=== PATIENT | male | born 1955 | race Caucasian/White ===

== ENCOUNTER → 2016-09-08 | Outpatient (CLI) | payer OTHER ==
[~2016-09-08] MED LIST: AMPI500C9 PO; ASPI81TA28 PO; ATOR-24 PO; BUPR-79 PO; CHOL1000 PO; FINA5TAB PO; FRS/40 PO; SULF-183 PO; TAMS0.4C38 PO
[2016-09-13 20:53] LABS: 18KDIGG BAND REACTIVE (NONREACTIVE); 23KDIGG BAND NONREACTIVE (NONREACTIVE); 23KDIGM BAND NONREACTIVE (NONREACTIVE); 28KDIGG BAND NONREACTIVE (NONREACTIVE); 30KDIGG BAND NONREACTIVE (NONREACTIVE); 39KDIGG BAND REACTIVE (NONREACTIVE); 39KDIGM BAND NONREACTIVE (NONREACTIVE); 41KDIGG BAND NONREACTIVE (NONREACTIVE); 41KDIGM BAND REACTIVE (NONREACTIVE); 45KDIGG BAND REACTIVE (NONREACTIVE); 58KDIGG BAND NONREACTIVE (NONREACTIVE); 66KDIGG BAND REACTIVE (NONREACTIVE); 93KDIGG BAND NONREACTIVE (NONREACTIVE)
[2016-09-14 17:44] LABS: ANTI-CENTROMERE AB <1.0 NEG AI (<1.0 NEG); ANTI-SS-A <1.0 NEG AI (<1.0 NEG); ANTI-SS-B <1.0 NEG AI (<1.0 NEG); DNA ds CRITHIDIA NEGATIVE (NEGATIVE); MICROSOMAL AB <1 IU/ML (<9); Sm Antibody <1.0 NEG AI (<1.0 NEG)
== END | disposition home or self-care (01) ==
LOC: C.LAB1850 14:09
PROVIDERS: ATTEND Internal Medicine Infectious Disease
DX: M35.3 Polymyalgia rheumatica (principal)

== ENCOUNTER → 2016-11-20 | Outpatient (CLI) | payer OTHER ==
[2016-11-20 16:42] LABS: HEMATOCRIT 45.5 % (42-52); MEAN CELL VOLUME 83.9 fL (80-100); MEAN CORPUSCULAR HEMOGLOBIN 26.9 pg (25-34); MEAN CORPUSCULAR HGB CONC 32.1 g/dl (32-36); MEAN PLATELET VOLUME 9.8 fL (7.4-10.4); PLATELET COUNT 200 K/uL (130-400); RED BLOOD COUNT 5.42 M/uL (4.7-6.1)
[2016-11-20 16:45] LABS: URINE APPEARANCE TURBID (CLEAR); URINE BILIRUBIN NEG (NEG); URINE COLOR YELLOW; URINE EPITHELIAL CELL AUTO 0-5 /lpf (0-5); URINE NITRITE NEG (NEG); URINE PH 5.5 (4.5-7.5); URINE SPECIFIC GRAVITY 1.013 (1.000-1.030); UROBILINOGEN NEG (NEG)
[2016-11-20 16:46] LABS: MANUAL MICROSCOPIC REQUIRED? NO; REVIEW REQ? YES
[2016-11-20 16:55] LABS: ALT/SGPT 55 U/L (12-78); AST/SGOT 22 U/L (15-37); BLOOD UREA NITROGEN 21 mg/dl (7-18); CALCIUM 8.7 mg/dl (8.5-10.1); CARBON DIOXIDE 31 mmol/L (21-32); CHLORIDE 107 mmol/L (98-107); GLUCOSE 90 mg/dl (70-99); POTASSIUM 4.1 mmol/L (3.5-5.1); SODIUM 143 mmol/L (136-145)
[2016-11-20 16:58] LABS: ALB/GLOB RATIO 0.9 (0.9-2); ALKALINE PHOSPHATASE 99 U/L (45-117); CHOLESTEROL 135 mg/dl (0-200); CHOLESTEROL/HDL RATIO 3.3; HDL CHOLESTEROL 41 mg/dl; LDL CHOLESTEROL CALCULATED 70 mg/dl; TRIGLYCERIDES 122 mg/dl (0-150); VERY LOW DENSITY LIPOPROT CALC 24 mg/dl
[2016-11-20 17:13] LABS: URINE PROTIEN/CREAT RATIO 0.3 (0-0.2); URINE TOTAL PROTEIN 21.2 mg/dl (0-11.9)
[2016-11-23 10:45] LABS: FREE KAPPA 43.3 MG/L (3.3-19.4); FREE KAPPA/LAMBDA RATIO 1.67 (0.26-1.65); FREE LAMBDA 25.9 MG/L (5.7-26.3)
== END | disposition home or self-care (01) ==
LOC: C.LABPBG 14:59
PROVIDERS: ATTEND Internal Medicine Nephrology
DX: E55.9 Vitamin D deficiency, unspecified (principal); N18.3 Chronic kidney disease, stage 3 (moderate); N40.0 Benign prostatic hyperplasia without lower urinary tract symptoms; N31.9 Neuromuscular dysfunction of bladder, unspecified; E78.00 Pure hypercholesterolemia, unspecified

== ENCOUNTER 2016-12-22 12:19 | Day surgery (SDC) | payer OTHER ==
[2016-12-09 11:41] VITALS: BMI 44.0
--- NOTE | 2016-12-09 12:17 | PAT Medication Instructions ---
Service Date December 09, 2016. Current Home Medication List Aspirin (Aspirin Ec), 81 MG PO QAM Atorvastatin (Lipitor), 40 MG PO QAM Bupropion (Wellbutrin Sr), 150 MG PO BID Cholecalciferol (Vitamin D3), 5,000 UNITS PO QAM Finasteride (Proscar), 5 MG PO BID Furosemide (Lasix), 40 MG PO QAM Tamsulosin Hcl (Flomax), 0.4 MG PO HS Medication Instructions For Your Scheduled Surgery - Hold the following medications 5 days prior to surgery per surgeon instructions: Aspirin (Aspirin Ec), 81 MG PO QAM - Hold the following medications the morning of surgery: Furosemide (Lasix), 40 MG PO QAM Cholecalciferol (Vitamin D3), 5,000 UNITS PO QAM - Take the following medications the morning of surgery with a sip of water: Finasteride (Proscar), 5 MG PO BID Atorvastatin (Lipitor), 40 MG PO QAM Bupropion (Wellbutrin Sr), 150 MG PO BID - Take the following medications as scheduled the night before surgery: Tamsulosin Hcl (Flomax), 0.4 MG PO HS Finasteride (Proscar), 5 MG PO BID Bupropion (Wellbutrin Sr), 150 MG PO BID If you have any questions please call us at [phone] or [phone] ( [place]) or [phone]
[2016-12-09 12:40] LABS: BASO % 0.5 %; BASO ABS # 0.05 K/uL (0-0.2); COMPLETE YES; EOS % 4.2 %; HEMATOCRIT 45.6 % (42-52); IG% 0.6 %; LYMPH % 20.6 %; LYMPH ABS # 2.06 K/uL (1.2-3.4); MEAN CELL VOLUME 82.6 fL (80-100); MEAN CORPUSCULAR HEMOGLOBIN 26.6 pg (25-34); MEAN CORPUSCULAR HGB CONC 32.2 g/dl (32-36); MEAN PLATELET VOLUME 9.3 fL (7.4-10.4); MONO % 9.2 %; NEUT % 64.9 %; PLATELET COUNT 207 K/uL (130-400); RED BLOOD COUNT 5.52 M/uL (4.7-6.1); WHITE BLOOD COUNT 10.01 K/uL (4.8-10.8)
[2016-12-09 12:43] LABS: URINE APPEARANCE TURBID (CLEAR); URINE BILIRUBIN NEG (NEG); URINE COLOR YELLOW; URINE EPITHELIAL CELL AUTO >30 /lpf (0-5); URINE NITRITE POS (NEG); URINE SPECIFIC GRAVITY 1.019 (1.000-1.030); UROBILINOGEN NEG (NEG)
[2016-12-09 12:45] LABS: MANUAL MICROSCOPIC REQUIRED? NO; REVIEW REQ? YES
--- NOTE | 2016-12-09 12:45 | DIAGNOSTIC IMAGING REPORT ---
CHEST PREADMISSION(PA/LAT) CLINICAL HISTORY: Preoperative chest COMPARISON STUDY: No previous studies for comparison. FINDINGS: The heart is borderline enlarged. There is no failure. There is no focal pulmonary consolidation. Indistinctness of the left heart border is felt to be secondary to a prominent fat pad. There are no pleural effusions.[ IMPRESSION: No active disease in the chest. Electronically signed by: Vishnu Maza M.D. 12/09/2016 12:44 PM Dictated Date/Time: 12/09/2016 12:43 PM
[2016-12-09 13:19] LABS: BUN/CREATININE RATIO 14.1 (10-20); CALCIUM 9.5 mg/dl (8.5-10.1); CREATININE 1.5 mg/dl (0.60-1.40); POTASSIUM 4.3 mmol/L (3.5-5.1)
[~2016-12-22] VITALS: Ht 182.9 cm; Wt 146.8 kg
[~2016-12-22 12:19] MED LIST changes: -AMPI500C9 PO; +CIPROFLOXACIN / D5W 400 MG IV SCH; +LACTATED RINGER'S 1000ML 1,000 ML IV SCH; -SULF-183 PO
[2016-12-22 12:43] VITALS: BP 137/66; PULSE 86; TEMP 36.5; O2SAT 95; Ht 182.9 cm; Wt 146.8 kg
[2016-12-22] MEDS ORDERED: PHENYLEPHRINE 100MCG/ML 5ML SYR IV PRN (12:45)
[2016-12-22] MEDS ORDERED: HYDROmorphone INJ 2 MG/ML SYR/VIAL IV PRN (12:45)
[2016-12-22] MEDS ORDERED: MEPERIDINE HCL 25 MG/ML CARP IV PRN (12:45)
[2016-12-22] MEDS ORDERED: FLUMAZENIL 0.1 MG/1 ML 10 ML VIAL IV PRN (12:45)
[2016-12-22] MEDS ORDERED: ATROPINE SULFATE 0.1 MG/ML 5ML SYR IV PRN (12:45)
[2016-12-22] MEDS ORDERED: FENTANYL CITRATE INJ 50 MCG/1 ML 2 ML VIAL IV PRN (12:45)
[2016-12-22] MEDS ORDERED: LABETALOL HCL IV 5 MG/ML 20ML IV PRN (12:45)
[2016-12-22] MEDS ORDERED: ONDANSETRON INJ 2 MG/ML 2 ML VIAL IV PRN (12:45)
[2016-12-22] MEDS ORDERED: NALOXONE HCL 0.4 MG/1 ML VIAL/CARP IV PRN (12:45)
[2016-12-22] MEDS ORDERED: EpHEDrine SULFATE INJ 50 MG/ML AMP IV PRN (12:45)
[2016-12-22] MEDS ORDERED: DEXAMETHASONE SOD INJ 4 MG/ML VIAL ONE (12:54)
[2016-12-22] MEDS ORDERED: PROPOFOL IV EMULSION 10 MG/ML 20 ML VIAL IV ONE ×2 (12:55→13:38)
[2016-12-22] MEDS ORDERED: ONDANSETRON INJ 2 MG/ML 2 ML VIAL ONE (12:55)
[2016-12-22] MEDS ORDERED: LIDOCAINE HCL 2% 2 ML VIAL (20MG/ML) ONE (12:55)
[2016-12-22] MEDS ORDERED: FENTANYL CITRATE INJ 50 MCG/1 ML 2 ML VIAL ONE ×2 (12:55→13:36)
--- NOTE | 2016-12-22 12:58 | History & Physical Bridge Note ---
H&P Re-Evaluation Bridge Note: I have examined the patient, reviewed the History & Physical and in the interval since the performance of the History & Physical I have noted the following changes of clinical significance: No changes noted
[2016-12-22] MEDS ORDERED: AMPI500C9 PO ×2 (13:00→14:00)
[2016-12-22] MEDS ORDERED: SULF-183 PO ×2 (13:02→14:00)
[2016-12-22] MEDS ORDERED: EpHEDrine SULFATE 50MG/5ML SYR ONE (13:38)
[2016-12-22] MEDS ORDERED: SODIUM CHLORIDE 0.9% 1000ML 1,000 ML IV SCH (13:58)
[2016-12-22] MEDS ORDERED: ACETAMINOPHEN 325 MG TAB PO PRN (14:00)
[2016-12-22] MEDS ORDERED: HYDROCODONE/ACETAMOPHEN 5/325MG TAB PO PRN ×2 (14:00)
--- NOTE | 2016-12-22 14:03 | Discharge Instructions ---
Discharge Instructions Date of Service December 22, 2016. Admission Reason for Admission: Urinary Retention, Benign Prostatic Hypertrophy Discharge Discharge Diagnosis / Problem: urinary retention; BPH Discharge Goals Goal(s): Decrease discomfort, Improve function, Increase independence, Improve disease control, Prevent Disease Progression Activity Recommendations Activity Limitations: resume your previous activity Lifting Limitations: none Exercise/Sports Limitations: none May Resume Sexual Activity: when tolerated Shower/Bathe: no limitations Driving or Machine Use: resume 1 day after discharge . Instructions / Follow-Up Instructions / Follow-Up Please come to Dr. Willis's office on to have your catheter removed. I have provided 2 new prescriptions for you (these are the same medications/ antibiotics you were on prior to surgery). If you have enough pills left at home , you do not need to fill these new prescriptions - but I would like to continue these medications for 5 days from today (until Wednesday) Discharge Diet Recommended Diet: Regular Diet Procedures Procedures Performed: button transurethral resection prostate Pending Studies Studies pending at discharge: no Laboratory Results Lipid Panel Test 11/20/16 15:06 Range/Units Triglycerides Level 122 0-150 mg/dl Cholesterol Level 135 0-200 mg/dl HDL Cholesterol 41 mg/dl Cholesterol/HDL Ratio 3.3 LDL Cholesterol, Calculated 70 mg/dl Medical Emergencies . Who to Call and When: Medical Emergencies: If at any time you feel your situation is an emergency, please call 911 immediately. . Non-Emergent Contact Non-Emergency issues call your: Urologist Call Non-Emergent contact if: you have a fever, temperature is above 101.5, your pain is not controlled, your pain is worsening, your pain is unusual for you . . "Provider Documentation" section prepared by Hay Fatima. . VTE Core Measure Inpt VTE Proph given/why not?: Treatment not indicated
--- NOTE | 2016-12-22 14:04 | [facility] Post Operative Brief Note ---
Immediate Operative Summary Operative Date December 22, 2016. Pre-Operative Diagnosis Benign prostatic hyperplasia Post-Operative Diagnosis same Procedure(s) Performed button transurethral resection prostate Surgeon Dr. Alejandro Willis Asw/Asuw [employer] Surgeon(s) none Estimated Blood Loss 0 ml Findings Moderately enlarged prostate with a high bladder neck. Healthy appearing bladder. Prostatic fossa was widely patent at the conclusion of the case. Specimens none per surgeon Drains 22F maynard Anesthesia gen Complication(s) None Disposition Recovery Room / PACU (stable)
--- NOTE | 2016-12-22 14:30 | OPERATIVE REPORT ---
DATE OF OPERATION: 12/22/2016 PREOPERATIVE DIAGNOSES: Urinary retention, benign prostatic hypertrophy. POSTOPERATIVE DIAGNOSES: Urinary retention, benign prostatic hypertrophy. PROCEDURE PERFORMED: Cystoscopy, transurethral resection of prostate. SURGEON: Dr. Willis. ANESTHESIA: General. ESTIMATED BLOOD LOSS: 0. URINE OUTPUT: Not recorded. SPECIMENS: There were no specimens. DRAINS: 22 [place] Day catheter. DESCRIPTION OF THE PROCEDURE: Tae Krishnan was identified in the preoperative holding area. Appropriate informed consents were reviewed and completed and the patient was transported to the operating suite. Of note, prior to arrival in the hospital he had been maintained on oral antibiotics in the form of Bactrim and ampicillin secondary to his preoperative urine cultures. He received an additional dose of ciprofloxacin upon arrival at the hospital. Following induction of general anesthesia, he was placed in dorsal lithotomy position and sterilely prepped and draped in standard fashion. I began the case by passing a 24 [place]uneian resectoscope with 30 degree lens and visual obturator. Inspection revealed no stricture disease. Prostate was noted to have lateral lobe hypertrophy as well as quite high bladder neck. Overall it was not a massively enlarged prostate. Inspection of the bladder revealed no evidence of mucosal abnormalities. Ureteral orifices were in orthotopic position and easily identified. Following my inspection of the bladder, I exchanged the visual obturator for resecting element and I elected to use a button electrode. I then proceeded to make incisions in the bladder neck in line between the ureteral orifices respectively and the verumontanum. I then resected the segment of tissue between these 2 incisions until the bladder neck was flattened. I then proceeded to resect the right lateral lobe followed by the left lateral lobe and ultimately the apical tissue. At the conclusion of the case, the prostatic fossa was widely patent. There have been no encroachment upon the ureteral orifices and there was excellent hemostasis. I left the bladder full at that time and withdrew my equipment. We placed a new 22-Bruneian Day catheter without difficulty and had a return of clear irrigant immediately. The patient was subsequently reversed from anesthesia and taken to the PACU in stable condition. I attest to the content of the Intraoperative Record and any orders documented therein. Any exceptio ns are noted below.
--- NOTE | 2016-12-22 14:35 | Anesthesiology Progress Note ---
Anesthesia Post Op Note Date & Time December 22, 2016 at 14:35 Vital Signs Pain Intensity: 0 Vital Signs Past 12 Hours Date Time Temp Pulse Resp B/P Pulse Ox O2 Delivery O2 Flow Rate FiO2 12/22/16 14:30 79 16 130/85 92 Room Air 12/22/16 14:20 85 16 154/86 96 Mask 10 12/22/16 14:10 85 16 135/90 96 Mask 10 12/22/16 14:00 36.3 88 16 133/85 94 Mask 10 12/22/16 12:43 36.5 86 20 137/66 95 Room Air Notes Mental Status: alert / awake / arousable, participated in evaluation Pt Amnestic to Procedure: Yes Nausea / Vomiting: adequately controlled Pain: adequately controlled Airway Patency, RR, SpO2: stable & adequate BP & HR: stable & adequate Hydration State: stable & adequate Anesthetic Complications: no major complications apparent
[2016-12-22 14:50] VITALS: BP 140/95; PULSE 77; TEMP 36.7; O2SAT 92
[2016-12-22 15:30] VITALS: BP 147/85; PULSE 79; TEMP 36.7; O2SAT 94
[2016-12-22 16:00] VITALS: BP 153/92; PULSE 88; TEMP 36.5; O2SAT 96
== END 2016-12-22 16:05 | disposition home or self-care (01) ==
LOC: C.ACU 12:19
PROVIDERS: ATTEND Urology
DX: N40.1 Benign prostatic hyperplasia with lower urinary tract symptoms (principal); R33.8 Other retention of urine; N52.9 Male erectile dysfunction, unspecified; N31.9 Neuromuscular dysfunction of bladder, unspecified; E78.00 Pure hypercholesterolemia, unspecified; N18.3 Chronic kidney disease, stage 3 (moderate); M36.3 Arthropathy in other blood disorders; E55.9 Vitamin D deficiency, unspecified; Z87.891 Personal history of nicotine dependence; Z79.899 Other long term (current) drug therapy

== ENCOUNTER → 2017-01-12 | Outpatient (CLI) | payer OTHER ==
[~2017-01-12] MED LIST changes: +AMPI500C9 PO; -CIPROFLOXACIN / D5W 400 MG IV SCH; -FINA5TAB PO; -LACTATED RINGER'S 1000ML 1,000 ML IV SCH; +SULF-183 PO
--- NOTE | 2017-01-12 16:14 | DIAGNOSTIC IMAGING REPORT ---
LEFT KNEE 3 VIEWS CLINICAL HISTORY: Left knee pain COMPARISON: None. DISCUSSION: No acute fractures are visualized. There are mild osteoarthritic changes. There is mild narrowing medial joint compartment. There is a small dorsal patellar spur. There are no erosive or destructive changes. IMPRESSION: Mild osteoarthritic change. No acute fractures. Electronically signed by: Vishnu Maza M.D. 01/12/2017 4:13 PM Dictated Date/Time: 01/12/2017 4:12 PM
--- NOTE | 2017-01-12 16:14 | DIAGNOSTIC IMAGING REPORT ---
L-SPINE MIN 4 VIEWS ROUTINE CLINICAL HISTORY: ] Knee pain COMPARISON STUDY: No previous studies for comparison. FINDINGS: No acute fractures or subluxations are visualized. There are moderate multilevel degenerative changes most pronounced at the L5-S1 level. There is irregularity anterior superior L5 endplate and is felt to be chronic. IMPRESSION: Moderate degenerative change. No acute fractures or subluxations identified. Electronically signed by: Vishnu Maza M.D. 01/12/2017 4:12 PM Dictated Date/Time: 01/12/2017 4:11 PM
--- NOTE | 2017-01-12 16:19 | DIAGNOSTIC IMAGING REPORT ---
RIGHT KNEE 3 VIEWS CLINICAL HISTORY: Right knee pain COMPARISON: None. DISCUSSION: No fractures or dislocations are visualized. There is a tiny dorsal patellar spur. There are no erosive or destructive changes. IMPRESSION: Minimal degenerative change. No acute fractures identified. No destructive lesions are visualized. Electronically signed by: Vishnu Maza M.D. 01/12/2017 4:17 PM Dictated Date/Time: 01/12/2017 4:17 PM
--- NOTE | 2017-01-12 16:25 | DIAGNOSTIC IMAGING REPORT ---
LEFT HAND MIN 3 VIEWS ROUTINE CLINICAL HISTORY: Left hand pain. COMPARISON: None FINDINGS: Alignment of left hand is anatomic. There is no fracture or osseous lesion within the left hand. A 4 mm lucency with sclerotic margin within the ulnar styloid is noted. There is minimal joint space narrowing and osteophytosis of several articulations of the left hand. IMPRESSION: 1. No acute fracture. 2. 4 mm lucency with sclerotic margin within the ulnar styloid which could reflect a cyst or erosion. 3. Minimal joint space narrowing and osteophytosis of several articulations of the left hand which favors osteoarthritis. Electronically signed by: Mario Wen M.D. 01/12/2017 4:23 PM Dictated Date/Time: 01/12/2017 4:21 PM
--- NOTE | 2017-01-12 16:25 | DIAGNOSTIC IMAGING REPORT ---
RIGHT HAND MIN 3 VIEWS ROUTINE CLINICAL HISTORY: Right hand pain COMPARISON: None. DISCUSSION: No acute fractures are visualized. There are mild osteoarthritic changes the level of the interphalangeal joint of the index finger. There are no subluxations. There is no erosive disease. There is an equivocal subchondral cyst within the distal ulna. There is a small metallic foreign body within the webspace between the first and second digits. IMPRESSION: 1. No acute fractures 2. Degenerative changes the level distal to phalangeal joint of the index finger 3. Equivocal subchondral cyst within the distal ulna 4. Small metallic foreign body within the webspace between the first and second digits. Electronically signed by: Vishnu Maza M.D. 01/12/2017 4:23 PM Dictated Date/Time: 01/12/2017 4:22 PM
[2017-01-12 17:44] LABS: C-REACTIVE PROTEIN 1.05 mg/dl (0-0.29); RHEUMATOID FACTOR < 10.0 U/mL (0-15); TOTAL IRON BINDING CAPACITY 325 mcg/dl (250-450)
[2017-01-20 04:46] LABS: ANTI-CENTROMERE AB <1.0 NEG AI (<1.0 NEG); ANTI-SS-A <1.0 NEG AI (<1.0 NEG); ANTI-SS-B <1.0 NEG AI (<1.0 NEG); DNA ds CRITHIDIA NEGATIVE (NEGATIVE); HLA-B27** TC 528X NEGATIVE (NEGATIVE); MYELOPEROXIDASE AB <1.0 AI (<1.0); Sm Antibody <1.0 NEG AI (<1.0 NEG)
== END | disposition home or self-care (01) ==
LOC: C.RAD1850 15:31
PROVIDERS: ATTEND Internal Medicine Rheumatology
DX: M54.5 Low back pain (principal); M25.561 Pain in right knee; R93.7 Abnormal findings on diagnostic imaging of other parts of musculoskeletal system; M25.742 Osteophyte, left hand; M47.816 Spondylosis without myelopathy or radiculopathy, lumbar region; M47.817 Spondylosis without myelopathy or radiculopathy, lumbosacral region; M85.431 Solitary bone cyst, right ulna and radius; M19.041 Primary osteoarthritis, right hand; S60.551A Superficial foreign body of right hand, initial encounter; X58.XXXA Exposure to other specified factors, initial encounter

== ENCOUNTER → 2017-03-16 | Outpatient (CLI) | payer OTHER ==
--- NOTE | 2017-03-16 14:12 | DIAGNOSTIC IMAGING REPORT ---
LUMBAR SPINE MRI HISTORY: Chronic low back pain. LUMBAR RADICULOPATHY TECHNIQUE: Multiplanar multisequence MRI of the lumbar spine was performed without the use of contrast. COMPARISON: Lumbar spine 01/12/2017. FINDINGS: For the purpose of the report the L5-S1 disc space will be located on axial image 27 of 30. No fracture. No subluxation. Mild disc space narrowing at L1-L2, L4-L5 and L5-S1. Prevertebral edema at the L5-S1 level and extending to the presacral space. There is endplate signal abnormality anteriorly and to the right side at the L5-S1 levels. There is anterior herniation of the L5-S1 disc space and a small amount of increased T2 signal within the right anterior disc. No epidural fluid collections. No evidence for paraspinal abscess. The conus terminates at L1. A 1.3 cm nonspecific T2 hyperintense, T1 hypointense lesion within the right sacrum at the S2 level. Subcutaneous edema within the lumbar region. Atrophic left kidney. Moderate facet degenerative changes within the mid to lower lumbar spine. L1-L2: Tiny broad-based posterior disc bulge. No significant central canal or neural foraminal narrowing. L2-L3: No significant central canal or neural foraminal narrowing. L3-L4: No significant central canal or neural foraminal narrowing. L4-L5: No significant central canal or neural foraminal narrowing. L5-S1: Tiny right paracentral focal disc protrusion without significant central canal narrowing. There is mild right neural foraminal narrowing due to the disc protrusion and mild facet hypertrophy. IMPRESSION: 1. Abnormal appearance to the L5-S1 disc and endplates anteriorly as described above. There is associated prevertebral edema at this location and extending into the presacral space. The appearance favors anterior disc herniation/degenerative change. However, an early discitis/osteomyelitis could also have a similar appearance in the appropriate clinical setting. Clinical recommended. In addition, short-term lumbar spine MRI follow-up with contrast can be performed for further evaluation. 2. Mild degenerative changes as described above. 3. No fracture or subluxation. 4. Atrophic left kidney. 4. A nonspecific 1.3 cm T2 hyperintense lesion within the right side of the sacrum. This also bears watching future examinations. Electronically signed by: Hao Castañeda M.D. 03/16/2017 2:10 PM Dictated Date/Time: 03/16/2017 1:57 PM
== END | disposition home or self-care (01) ==
LOC: C.MRIBC 13:00
PROVIDERS: ATTEND Pain Medicine Interventional Pain Medicine
DX: M54.5 Low back pain (principal)

== ENCOUNTER → 2017-05-17 | Outpatient (CLI) | payer OTHER ==
[2017-05-17 17:19] LABS: HEMATOCRIT 45.8 % (42-52); MEAN CELL VOLUME 82.8 fL (80-100); MEAN CORPUSCULAR HEMOGLOBIN 26.4 pg (25-34); MEAN CORPUSCULAR HGB CONC 31.9 g/dl (32-36); MEAN PLATELET VOLUME 10.3 fL (7.4-10.4); PLATELET COUNT 206 K/uL (130-400); RED BLOOD COUNT 5.53 M/uL (4.7-6.1); WHITE BLOOD COUNT 11.48 K/uL (4.8-10.8)
[2017-05-17 17:25] LABS: URINE APPEARANCE CLOUDY (CLEAR); URINE BILIRUBIN NEG (NEG); URINE COLOR YELLOW; URINE EPITHELIAL CELL AUTO 20-30 /lpf (0-5); URINE NITRITE NEG (NEG); URINE PH 7.5 (4.5-7.5); URINE SPECIFIC GRAVITY 1.018 (1.000-1.030); UROBILINOGEN NEG (NEG)
[2017-05-17 17:39] LABS: MANUAL MICROSCOPIC REQUIRED? NO; REVIEW REQ? YES; SULFASALICYLIC ACID POS (NEG)
[2017-05-17 17:48] LABS: ALT/SGPT 33 U/L (12-78); BLOOD UREA NITROGEN 16 mg/dl (7-18); BUN/CREATININE RATIO 10.3 (10-20); CALCIUM 8.9 mg/dl (8.5-10.1); CARBON DIOXIDE 31 mmol/L (21-32); CHLORIDE 105 mmol/L (98-107); CREATININE 1.53 mg/dl (0.60-1.40); GLUCOSE 97 mg/dl (70-99); POTASSIUM 3.5 mmol/L (3.5-5.1); SODIUM 141 mmol/L (136-145)
[2017-05-17 17:49] LABS: URINE PROTIEN/CREAT RATIO 0.6 (0-0.2); URINE TOTAL PROTEIN 77.2 mg/dl (0-11.9)
[2017-05-17 17:51] LABS: ALB/GLOB RATIO 0.8 (0.9-2); ALKALINE PHOSPHATASE 120 U/L (45-117); AST/SGOT 19 U/L (15-37)
== END | disposition home or self-care (01) ==
LOC: C.LABPBG 13:08
PROVIDERS: ATTEND Internal Medicine Nephrology
DX: E55.9 Vitamin D deficiency, unspecified (principal); N18.3 Chronic kidney disease, stage 3 (moderate); N40.0 Benign prostatic hyperplasia without lower urinary tract symptoms; N31.9 Neuromuscular dysfunction of bladder, unspecified

== ENCOUNTER 2017-09-23 20:47 | Emergency (ER) | payer OTHER ==
[~2017-09-23] VITALS: Ht 182.9 cm; Wt 152.3 kg
[~2017-09-23 20:47] MED LIST changes: -SULF-183 PO; +SULF-302 PO
[2017-09-23 21:09] VITALS: TEMP 36.6; Ht 182.9 cm; Wt 152.3 kg
[2017-09-23] MEDS ORDERED: HYDROmorphone INJ 1 MG/ML SYR IV STA (21:33)
[2017-09-23] MEDS ORDERED: VANCOMYCIN INJ 1,000 MG in SODIUM CHLORIDE 0.9% 250ML 250 ML IV STA (21:33)
[2017-09-23] MEDS ORDERED: CEFTRIAXONE SOD INJ 1 GM ADDVIAL IV STA (21:33)
[2017-09-23] MEDS ORDERED: VANCOMYCIN CONSULT ACTIVE PRN (21:45)
[2017-09-23 22:01] VITALS: O2SAT 93
[2017-09-23 22:12] LABS: BASO % 0.5 %; BASO ABS # 0.05 K/uL (0-0.2); EOS % 3.3 %; EOS ABS # 0.31 K/uL (0-0.5); HEMATOCRIT 44.2 % (42-52); HEMOGLOBIN 14.4 g/dL (14.0-18.0); IG# 0.05 K/uL (0.00-0.02); LYMPH % 23.7 %; LYMPH ABS # 2.25 K/uL (1.2-3.4); MEAN CELL VOLUME 81.3 fL (80-100); MEAN CORPUSCULAR HEMOGLOBIN 26.5 pg (25-34); MEAN CORPUSCULAR HGB CONC 32.6 g/dl (32-36); MEAN PLATELET VOLUME 9.4 fL (7.4-10.4); MONO % 9.5 %; NEUT % 62.5 %; NEUT ABS # 5.95 K/uL (1.4-6.5); PLATELET COUNT 209 K/uL (130-400); RED CELL DISTRIBUTION WIDTH CV 15.2 % (11.5-14.5); WHITE BLOOD COUNT 9.51 K/uL (4.8-10.8)
--- NOTE | 2017-09-23 22:14 | DIAGNOSTIC IMAGING REPORT ---
CHEST ONE VIEW PORTABLE CLINICAL HISTORY: Shortness of breath. COMPARISON STUDY: Chest radiograph December 09, 2016. FINDINGS: Lung volumes are normal. Evaluation is compromised given portable technique and body habitus. Apparent left lower lung opacity is probably artifactual. Cardiomediastinal silhouette is stable. There is no evidence for pulmonary edema. The appearance of the chest is unchanged. IMPRESSION: 1. No acute cardiopulmonary findings. 2. Study compromised given body habitus and portable technique. Apparent left lower lung opacity is likely artifactual. Electronically signed by: Mario Wen M.D. 09/23/2017 10:13 PM Dictated Date/Time: 09/23/2017 10:11 PM
--- NOTE | 2017-09-23 22:15 | DIAGNOSTIC IMAGING REPORT ---
R KNEE 1 OR 2 VIEWS ROUTINE CLINICAL HISTORY: Right knee pain. COMPARISON: Right knee radiographs January 12, 2017. FINDINGS: Alignment of the right knee is anatomic. There is no acute fracture. There is minimal medial compartment joint space narrowing. There is minimal osteophytosis within the right knee. There is a possible right knee joint effusion. IMPRESSION: 1. No acute fracture. 2. Possible right knee joint effusion. Electronically signed by: Mario Wen M.D. 09/23/2017 10:14 PM Dictated Date/Time: 09/23/2017 10:13 PM
[2017-09-23] MEDS ORDERED: CINN1CAP2 PO (22:31)
[2017-09-23] MEDS ORDERED: CAYENNE PO (22:31)
[2017-09-23] MEDS ORDERED: APPLTAB PO (22:31)
[2017-09-23] MEDS ORDERED: CHOL20009 PO (22:31)
[2017-09-23 22:33] LABS: ALBUMIN 3.1 gm/dl (3.4-5.0); ALT/SGPT 39 U/L (12-78); BLOOD UREA NITROGEN 20 mg/dl (7-18); CALCIUM 8.8 mg/dl (8.5-10.1); CARBON DIOXIDE 31 mmol/L (21-32); CREATININE 1.75 mg/dl (0.60-1.40); GLUCOSE 94 mg/dl (70-99); POTASSIUM 3.9 mmol/L (3.5-5.1); SODIUM 141 mmol/L (136-145)
[2017-09-23 22:38] LABS: ALKALINE PHOSPHATASE 106 U/L (45-117); AST/SGOT 19 U/L (15-37); TOTAL PROTEIN 7.1 gm/dl (6.4-8.2)
--- NOTE | 2017-09-23 22:42 | DIAGNOSTIC IMAGING REPORT ---
LEFT LOWER EXTREMITY VENOUS DOPPLER CLINICAL HISTORY: Left lower extremity swelling. COMPARISON STUDY: No previous studies for comparison. TECHNIQUE: Sonography of the deep venous system of the left lower extremity was performed. Compression and augmentation were evaluated. FINDINGS: The common femoral, superficial femoral and popliteal veins were compressible. Augmentation was normal. Flow was shown within the deep calf vessels although the calf vessels were suboptimally assessed on this exam due to subcutaneous edema. IMPRESSION: No evidence of deep venous thrombus within the left lower extremity. Electronically signed by: Mario Wen M.D. 09/23/2017 10:41 PM Dictated Date/Time: 09/23/2017 10:40 PM
[2017-09-23] MEDS ORDERED: CEPH500C2 PO (22:57)
[2017-09-23] MEDS ORDERED: SULF800T23 PO (22:57)
[2017-09-23] MEDS ORDERED: OXYC1TAB3 PO (22:57)
--- NOTE | 2017-09-23 23:18 | EMERGENCY ROOM VISIT NOTE ---
History Report prepared by Ryne: Sabine Lynn Under the Supervision of: Dr. Milad Mahoney M.D. First contact with patient: 21:25 Chief Complaint: EDEMA TO EXTREMITY Stated Complaint: LEG SWELLING, FLUID COMING OUT AND SKIN COMING OUT History of Present Illness The patient is a 61 year old male who presents to the Emergency Room with complaints of worsening edema to his left leg starting this morning. The patient states that he has had trouble with this for some time. He states that when he took a bath this morning and was drying off, his skin peeled right off. He reports that it feels like his whole leg is swollen. The patient notes a history of cellulitis. The patient complains of right knee pain. The patient denies being more short of breath than usual. Source of History: patient Onset: this morning Position: leg (left) Quality: other (swollen) Timing: worsening Associated Symptoms: No SOB Note: The patient complains of right knee pain. Review of Systems See HPI for pertinent positives & negatives. A total of 10 systems reviewed and were otherwise negative. Past Medical & Surgical Medical Problems: (1) History of cellulitis Family History Patient reports no known family medical history. Social History Smoking Status: Former Smoker Marital Status: Housing Status: lives with significant other Occupation Status: unemployed Current/Historical Medications Scheduled Apple Cider Vinegar (Apple Cider Vinegar), 1 TAB PO TID Aspirin (Aspirin Ec), 81 MG PO QAM Atorvastatin (Lipitor), 40 MG PO QAM Bupropion (Wellbutrin Sr), 150 MG PO BID Cephalexin Monohydrate (Keflex), 500 MG PO QID Cholecalciferol (Vitamin D), 2,000 UNITS PO DAILY Cinnamon (Cinnamon), 2,000 MG PO BID Sulfa/Trimethoprim (Bactrim Ds 800MG/160MG), 1 TAB PO BID [Cayenne], 80,000 UNIT PO QAM Scheduled PRN Oxycodone Immediate Rel Tab (Roxicodone Ir), 1-2 TAB PO Q4H PRN for Severe Pain Allergies Coded Allergies: No Known Allergies (Unverified , 12/22/16) Physical Exam Vital Signs Date Time Temp Pulse Resp B/P (MAP) Pulse Ox O2 Delivery O2 Flow Rate FiO2 09/24/17 00:23 90 18 129/85 92 09/23/17 22:05 92 09/23/17 22:02 93 16 151/86 92 Room Air 09/23/17 22:01 93 Room Air 09/23/17 21:09 36.6 90 20 152/88 94 Room Air Physical Exam GENERAL: Patient is a healthy-appearing well-nourished HEAD: Normocephalic atraumatic EYES: Ocular movements intact pupils equal and react to light OROPHARYNX mucous membranes are moist no exudates present no erythema or edema present NECK: Supple no nuchal rigidity CHEST: Good equal expansion LUNGS: Clear and equal to auscultation CARDIAC: Normal S1 and S2 ABDOMEN: Soft nontender no guarding BACK: No CVA tenderness EXTREMITIES: No pain upon palpation normal muscle strength in all groups no clubbing or cyanosis. Cellulitis to the LLE. There is a 2 inch x 2 inch area of torn skin that is weeping. The cellulitis does not extend above the knee. It itself is greater than 6 inches in length. NEURO: Patient is following commands and answering questions appropriately. Alert and oriented x3 Cranial Nerves 2-12 grossly intact Medical Decision & Procedures ER Provider Diagnostic Interpretation: Radiology results as stated below per my review and radiologist interpretation: CHEST ONE VIEW PORTABLE CLINICAL HISTORY: Shortness of breath. COMPARISON STUDY: Chest radiograph December 09, 2016. FINDINGS: Lung volumes are normal. Evaluation is compromised given portable technique and body habitus. Apparent left lower lung opacity is probably artifactual. Cardiomediastinal silhouette is stable. There is no evidence for pulmonary edema. The appearance of the chest is unchanged. IMPRESSION: 1. No acute cardiopulmonary findings. 2. Study compromised given body habitus and portable technique. Apparent left lower lung opacity is likely artifactual. Electronically signed by: Mario Wen M.D. 09/23/2017 10:13 PM Dictated Date/Time: 09/23/2017 10:11 PM R KNEE 1 OR 2 VIEWS ROUTINE CLINICAL HISTORY: Right knee pain. COMPARISON: Right knee radiographs January 12, 2017. FINDINGS: Alignment of the right knee is anatomic. There is no acute fracture. There is minimal medial compartment joint space narrowing. There is minimal osteophytosis within the right knee. There is a possible right knee joint effusion. IMPRESSION: 1. No acute fracture. 2. Possible right knee joint effusion. Electronically signed by: Mario Wen M.D. 09/23/2017 10:14 PM Dictated Date/Time: 09/23/2017 10:13 PM LEFT LOWER EXTREMITY VENOUS DOPPLER CLINICAL HISTORY: Left lower extremity swelling. COMPARISON STUDY: No previous studies for comparison. TECHNIQUE: Sonography of the deep venous system of the left lower extremity was performed. Compression and augmentation were evaluated. FINDINGS: The common femoral, superficial femoral and popliteal veins were compressible. Augmentation was normal. Flow was shown within the deep calf vessels although the calf vessels were suboptimally assessed on this exam due to subcutaneous edema. IMPRESSION: No evidence of deep venous thrombus within the left lower extremity. Electronically signed by: Mario Wen M.D. 09/23/2017 10:41 PM Dictated Date/Time: 09/23/2017 10:40 PM Laboratory Results 09/23/17 21:45 Red Blood Count 5.44, Mean Corpuscular Volume 81.3, Mean Corpuscular Hemoglobin 26.5, Mean Corpuscular Hemoglobin Concent 32.6, Mean Platelet Volume 9.4, Neutrophils (%) (Auto) 62.5, Lymphocytes (%) (Auto) 23.7, Monocytes (%) (Auto) 9.5, Eosinophils (%) (Auto) 3.3, Basophils (%) (Auto) 0.5, Neutrophils # (Auto) 5.95, Lymphocytes # (Auto) 2.25, Monocytes # (Auto) 0.90, Eosinophils # (Auto) 0.31, Basophils # (Auto) 0.05 09/23/17 21:45 Test 09/23/17 21:45 White Blood Count 9.51 K/uL (4.8-10.8) Red Blood Count 5.44 M/uL (4.7-6.1) Hemoglobin 14.4 g/dL (14.0-18.0) Hematocrit 44.2 % (42-52) Mean Corpuscular Volume 81.3 fL (80-100) Mean Corpuscular Hemoglobin 26.5 pg (25-34) Mean Corpuscular Hemoglobin Concent 32.6 g/dl (32-36) Platelet Count 209 K/uL (130-400) Mean Platelet Volume 9.4 fL (7.4-10.4) Neutrophils (%) (Auto) 62.5 % Lymphocytes (%) (Auto) 23.7 % Monocytes (%) (Auto) 9.5 % Eosinophils (%) (Auto) 3.3 % Basophils (%) (Auto) 0.5 % Neutrophils # (Auto) 5.95 K/uL (1.4-6.5) Lymphocytes # (Auto) 2.25 K/uL (1.2-3.4) Monocytes # (Auto) 0.90 K/uL (0.11-0.59) Eosinophils # (Auto) 0.31 K/uL (0-0.5) Basophils # (Auto) 0.05 K/uL (0-0.2) RDW Standard Deviation 45.0 fL (36.4-46.3) RDW Coefficient of Variation 15.2 % (11.5-14.5) Immature Granulocyte % (Auto) 0.5 % Immature Granulocyte # (Auto) 0.05 K/uL (0.00-0.02) Prothrombin Time 10.0 SECONDS (9.0-12.0) Prothromb Time International Ratio 1.0 (0.9-1.1) Anion Gap 5.0 mmol/L (3-11) Est Creatinine Clear Calc Drug Dose 68.2 ml/min Estimated GFR () 48.0 Estimated GFR (Non- 41.4 BUN/Creatinine Ratio 11.4 (10-20) Calcium Level 8.8 mg/dl (8.5-10.1) Total Bilirubin 0.3 mg/dl (0.2-1) Aspartate Amino Transf (AST/SGOT) 19 U/L (15-37) Alanine Aminotransferase (ALT/SGPT) 39 U/L (12-78) Alkaline Phosphatase 106 U/L (45-117) Total Creatine Kinase 136 U/L (39-308) Creatine Kinase MB 1.0 ng/ml (0.5-3.6) Creatine Kinase MB Ratio 0.7 (0-3.0) Troponin I < 0.015 ng/ml (0-0.045) Pro-B-Type Natriuretic Peptide 38 pg/ml (0-900) Total Protein 7.1 gm/dl (6.4-8.2) Albumin 3.1 gm/dl (3.4-5.0) Globulin 4.0 gm/dl (2.5-4.0) Albumin/Globulin Ratio 0.8 (0.9-2) Labs reviewed by ED physician. Medications Administered Medications (Trade) Dose Ordered Sig/Collette Route Start Time Stop Time Status Last Admin Dose Admin Hydromorphone HCl (Dilaudid Inj) 1 mg NOW STAT IV 09/23/17 21:33 09/23/17 21:36 DC 09/23/17 22:03 1 MG Ceftriaxone Sodium (Rocephin Inj) 1 gm NOW STAT IV 09/23/17 21:33 09/23/17 21:36 DC 09/23/17 22:03 1 GM Vancomycin HCl 1000 mg/Sodium Chloride 270 ml @ 125 mls/hr NOW STAT IV 09/23/17 21:33 09/23/17 23:42 DC 09/23/17 22:58 125 MLS/HR ECG Per My Interpretation Indication: SOB/dyspnea Rate (beats per minute): 89 Rhythm: normal sinus Findings: other (normal axis, no ST elevatin or depression) ED Course 2128: Past medical records reviewed. The patient was evaluated in room C9. A complete history and physical examination was performed. 2132: Ordered Vancomycin HCl 1000 mg/ Sodium Chloride 270 ml @ 125 mls/hr IV, Rocephin Inj 1 gm IV, Dilaudid Inj 1 mg IV. 2240: Upon reexamination the patient is resting comfortably. I discussed results and treatment plan with the patient. He verbalizes agreement and understanding. The patient is ready for discharge. Medical Decision Differential diagnosis: Etiologies such as cellulitis, abscess, MRSA infection, DVT, necrotizing fasciitis, dermatitis, drug eruption, as well as others were entertained. This is a 61-year-old male who presents emergency department complaining of cellulitis to the left lower 70. The patient was sent for an ultrasound of the leg. This did not show any evidence of a DVT. The patient cellulitis does not meet admission criteria as it does not go up over his knee. The wound was cleaned and dressed by nursing and a compression stocking was placed. The patient does not have an elevation in his white blood cell count. He was started on Rocephin and Bactrim. I do feel he is well enough to be discharged home for follow-up this primary care physician as well as wound clinic. Patient was in agreement with the treatment plan. Medication Reconcilliation Current Medication List: was personally reviewed by me Blood Pressure Screening Patient's blood pressure: Elevated blood pressure Blood pressure disposition: Elevated BP felt to be situational Impression Primary Impression: Cellulitis Scribe Attestation The scribe's documentation has been prepared under my direction and personally reviewed by me in its entirety. I confirm that the note above accurately reflects all work, treatment, procedures, and medical decision making performed by me. Departure Information Dispostion Home / Self-Care Prescriptions Oxycodone Immediate Rel Tab (ROXICODONE IR) 5 Mg Tab 1-2 TAB PO Q4H Y for Severe Pain, #14 TAB Prov: Milad Mahoney MD 09/23/17 Sulfa/Trimethoprim (Bactrim Ds 800MG/160MG) Tab 1 TAB PO BID for 10 Days, #20 TAB Prov: Milad Mahoney MD 09/23/17 Cephalexin Monohydrate (KEFLEX) 500 Mg Cap 500 MG PO QID for 10 Days, #40 CAP Prov: Milad Mahoney MD 09/23/17 Referrals Jose Manuel Epps D.O. (PCP) Forms HOME CARE DOCUMENTATION FORM, IMPORTANT VISIT INFORMATION, WORK / SCHOOL INSTRUCTIONS Patient Instructions My [facility] Additional Instructions Return if rash worsens or you develop severe fevers Follow up with wound clinic You have been examined and treated today on an emergency basis only. This is not a substitute for, or an effort to provide, complete comprehensive medical care. It is impossible to recognize and treat all injuries or illnesses in a single emergency department visit. It is therefore important that you follow up closely with Dr Foley. Call as soon as possible for an appointment. Thank you for your time and consideration. I look forward to speaking with you again soon. Please don't hesitate to call us if you have any questions. Problem Qualifiers Primary Impression: Cellulitis Site of cellulitis: extremity Site of cellulitis of extremity: lower extremity Laterality: left Qualified Codes: L03.116 - Cellulitis of left lower limb
[2017-09-24 00:23] VITALS: BP 129/85; PULSE 90; O2SAT 92
== END 2017-09-24 00:25 | disposition home or self-care (01) ==
LOC: C.EDB 20:48 → C.EDC 09-24 00:25
DX: L03.116 Cellulitis of left lower limb (principal); Z87.891 Personal history of nicotine dependence; Z79.82 Long term (current) use of aspirin

== ENCOUNTER → 2017-10-22 | Outpatient (CLI) | payer OTHER ==
[~2017-10-22] MED LIST changes: -AMPI500C9 PO; +APPLTAB PO; +CAYENNE PO; -CHOL1000 PO; +CHOL20009 PO; +CINN1CAP2 PO; -FRS/40 PO; +OXYC1TAB3 PO; -SULF-302 PO; -TAMS0.4C38 PO
[2017-10-22 16:45] LABS: HEMATOCRIT 46.1 % (42-52); HEMOGLOBIN 15.7 g/dL (14.0-18.0); MEAN CELL VOLUME 81.7 fL (80-100); MEAN CORPUSCULAR HEMOGLOBIN 27.8 pg (25-34); MEAN CORPUSCULAR HGB CONC 34.1 g/dl (32-36); MEAN PLATELET VOLUME 10.2 fL (7.4-10.4); PLATELET COUNT 232 K/uL (130-400); RED CELL DISTRIBUTION WIDTH CV 15.5 % (11.5-14.5); RED CELL DISTRIBUTION WIDTH SD 45.9 fL (36.4-46.3); WHITE BLOOD COUNT 11.53 K/uL (4.8-10.8)
[2017-10-22 16:54] LABS: ALBUMIN 3.7 gm/dl (3.4-5.0); BLOOD UREA NITROGEN 17 mg/dl (7-18); CALCIUM 9.2 mg/dl (8.5-10.1); CARBON DIOXIDE 28 mmol/L (21-32); CREATININE 1.65 mg/dl (0.60-1.40); GLUCOSE 87 mg/dl (70-99); POTASSIUM 3.9 mmol/L (3.5-5.1); SODIUM 138 mmol/L (136-145)
[2017-10-22 16:55] LABS: PHOSPHORUS 2.4 mg/dl (2.5-4.9)
== END | disposition home or self-care (01) ==
LOC: C.LABPBG 11:51
PROVIDERS: ATTEND Internal Medicine Nephrology
DX: R80.9 Proteinuria, unspecified (principal); E55.9 Vitamin D deficiency, unspecified; N18.3 Chronic kidney disease, stage 3 (moderate); N40.0 Benign prostatic hyperplasia without lower urinary tract symptoms; R33.9 Retention of urine, unspecified; R10.9 Unspecified abdominal pain

== ENCOUNTER 2021-02-19 11:02 | Inpatient (IN) ==
[2021-02-19] MEDS ORDERED: SODIUM CHLORIDE 0.9% 500 ML IV STA (12:04)
[2021-02-19] MEDS ORDERED: ACETAMINOPHEN 500 MG TAB PO STA (12:04)
[2021-02-19] MEDS ORDERED: cefTRIAXone SODIUM 2,000 MG/70 ML BAG IV STA (12:06)
--- NOTE | 2021-02-19 12:43 | Emergency Department Note ---
Impression & Plan Acute epididymo-orchitis ED Provider Note NAME: AD ESCOBEDO AGE: 65 SEX: M : 1955 ARRIVES VIA: Walk-In INFORMANT: Patient, ED PROVIDER(S): Skyler Marx DO CHIEF COMPLAINT: Scrotal pain HPI: The patient is a 65-year-old male who presented to the emergency department for an evaluation of scrotal pain. The patient states he started noticing pain on his right hemiscrotum over the last 48 hours. He now notices low-grade fever. He notices nausea but no vomiting. The patient denies having any rectal bleeding. He does complain of significant swelling and pain over the right hemiscrotum. He denies having any lower extremity redness. The patient has no chest pain or difficulty breathing. He does not have a history of diabetes. He has never had similar symptoms in the past. The patient states symptoms are worsened with any ambulation or palpation over the right hemiscrotum. ROS: See above HPI for pertinent positives & negatives. A total of 10 systems reviewed and were otherwise negative. PAST MEDICAL HISTORY: See Below PAST SURGICAL HISTORY: See Below FAMILY HISTORY: See Below SOCIAL HISTORY: See Below HOME MEDICATIONS: See Below ALLERGIES: See Below VITALS: See Below PHYSICAL EXAMINATION: GENERAL: Patient is awake and alert. The patient is very anxious appearing and appears very uncomfortable. EYES: The conjunctivae are clear. The pupils are round and reactive. EARS, NOSE, MOUTH AND THROAT: The nose is without any evidence of any deformity. NECK: The neck is nontender and supple. RESPIRATORY: Normal respiratory effort is noted there is no evidence of wheezing rhonchi or rales CARDIOVASCULAR: Regular rate and rhythm noted there no murmurs rubs or gallops normal S1 normal S2. GASTROINTESTINAL: The abdomen is moderately distended. There is no tenderness guarding or rigidity. : Left testicle is descended and nontender. Right testicle is significantly indurated and swollen. There is significant skin changes in the scrotum overlying. MUSCULOSKELETAL/EXTREMITIES: There is no evidence of gross deformity full range of motion is noted in the hips and shoulders. SKIN: Pedal edema was noted bilaterally. NEUROLOGIC: Patient is awake alert and oriented x3. MEDICAL DECISION MAKING: The patient is a 65-year-old male who presented to the emergency department for a febrile illness. The patient was found to have fever as well as physical exam findings consistent with epididymoorchitis. The patient was treated with IV fluids and IV antibiotics. He was reevaluated multiple times. I discussed the patient's laboratory and radiographic studies with him. Given his findings I also [facility] have agreed to evaluate the patient in the emergency department for further management and disposition. The patient was treated with Tylenol and is fever d id improve. The patient was feeling much better. Triage Nursing notes reviewed. Prior medical records reviewed Vital Signs: reviewed and remarkable for fever and elevated blood pressure. Differential diagnosis: Testicular torsion, mass, infection, hernia, hydrocele, epididymitis, STI, trauma, intra-abdominal process, as well as other pathologies. ER treatment provided: See below Diagnostics interpreted by me: ECG: none Cardiac Monitoring: An order was placed for continuous cardiac monitoring. The monitor shows a rate of 78 bpm with sinus rhythm. Laboratory studies: As stated above and show below. Imaging studies: See below Consultation(s): 1410: I discussed this case with Dr. Lim who [facility] He will evaluate the patient in the emergency department. Past Med/Surg History Medical History BPH (benign prostatic hyperplasia) COPD (chronic obstructive pulmonary disease) Degenerative disc disease Depression with anxiety Erectile dysfunction History of anesthesia reaction Hypercholesterolemia Hypertension Kidney stones Lumbar disc disease Lumbar radiculopathy Lymphedema Morbid obesity Neurogenic bladder Polymyalgia rheumatica Prediabetes Proteinuria Severe obstructive sleep apnea Stage III chronic kidney disease Urinary retention Vitamin D deficiency Surgical History H/O cystoscopy H/O transurethral resection of prostate H/O umbilical hernia repair History of ankle surgery History of open reduction and internal fixation (ORIF) procedure History of wisdom tooth extraction Family History Daughter Family history of reaction to anesthesia difficulty waking Father Diabetes Hypertension Mother Diabetes Hypertension Arthritis Sister Family history of diabetes mellitus Uncle Colorectal cancer Maternal uncle. Denies family history of Ovarian cancer Prostate cancer Myocardial infarction Breast cancer Social History Smoking Status: Former smoker Tobacco Type: Cigarettes and Smokeless Tobacco (Dip or Chew) packs per day: 1; Years Smoked: 50; Second Hand Exposure: Yes (parents smoked); Hx Substance Use: No Preferred Language: Beninese Communication Ability: Effective Visual Impairment: No Limitations Hearing Ability: Normal Marketing Summer Intern Required: No Beliefs That Will Affect Care: None marital status: Single Current Living Situation: Family Current Living Situation Comment: Lives with daughter current occupational status: disabled How many Children do You have: 4 Feels Safe at Home: Yes Childhood Exposure to Second-Hand Smoke: Yes caffeine: Yes during the past year weight has: remained stable Dental Care, Regularly: No Physical Activity Frequency: 1-2 Times per Week Seatbelt Use: always Sunscreen Use: No Assistive Devices: None Allergies Allergies Allergy/AdvReac Type Severity Reaction Status Date / Time No Known Drug Allergies Allergy Verified 02/19/21 12:43 Home Meds Home Medications Medication Instructions Recorded Confirmed aspirin 81 mg tablet,delayed 81 mg PO QAM 08/30/18 02/19/21 release Previous Rx's Medication Instructions Recorded bupropion HCl 150 mg tablet,12 hr See Rx Instructions .ROUTE 07/02/20 sustained-release .COMPLEX #60 tablet atorvastatin 40 mg tablet (Lipitor) 40 mg PO QAM #90 tab 08/14/20 furosemide 40 mg tablet 40 mg PO QAM #90 tab 09/04/20 tamsulosin 0.4 mg capsule 0.4 mg PO HS 90 Days #90 cap 12/05/20 Results & Data (ED) Vital Signs Vital Signs - 24 hr 02/19/21 11:17 02/19/21 12:00 02/19/21 12:02 Temperature 38 C H 38.3 C H Temperature Source Oral Oral Pulse Rate 115 H Pulse Rate [Apical] 111 H Pulse Rate from SpO2 Sensor Respiratory Rate 20 22 Blood Pressure 158/75 H Blood Pressure [Right Arm] 160/116 H Blood Pressure Mean 102 Blood Pressure Mean [Right Arm] 130 Pulse Oximetry 95 93 Oxygen Delivery Method Room Air Room Air Sepsis Recent Fever Within 48 Hours Yes Sepsis New/Unexplained Change in Mental Status N/A Sepsis Action Taken by Nursing No Action Required 02/19/21 12:32 02/19/21 13:36 02/19/21 14:00 Temperature Temperature Source Pulse Rate 120 H 113 H 108 H Pulse Rate [Apical] Pulse Rate from SpO2 Sensor 120 H 114 H 108 H Respiratory Rate 27 H 18 23 Blood Pressure 91/60 L 106/60 Blood Pressure [Right Arm] Blood Pressure Mean 70 75 Blood Pressure Mean [Right Arm] Pulse Oximetry 95 92 92 Oxygen Delivery Method Room Air Room Air Room Air Sepsis Recent Fever Within 48 Hours Sepsis New/Unexplained Change in Mental Status Sepsis Action Taken by Nursing 02/19/21 14:04 02/19/21 14:08 02/19/21 14:30 Temperature 37.9 C H Temperature Source Oral Pulse Rate 108 H 110 H Pulse Rate [Apical] Pulse Rate from SpO2 Sensor 107 H 109 H Respiratory Rate 27 H 26 H Blood Pressure 121/60 113/50 L Blood Pressure [Right Arm] Blood Pressure Mean 80 71 Blood Pressure Mean [Right Arm] Pulse Oximetry 93 94 Oxygen Delivery Method Room Air Room Air Sepsis Recent Fever Within 48 Hours Sepsis New/Unexplained Change in Mental Status Sepsis Action Taken by Nursing 02/19/21 15:00 02/19/21 15:30 Temperature Temperature Source Pulse Rate 111 H 113 H Pulse Rate [Apical] Pulse Rate from SpO2 Sensor 110 H 113 H Respiratory Rate 21 23 Blood Pressure 128/60 155/58 H Blood Pressure [Right Arm] Blood Pressure Mean 82 90 Blood Pressure Mean [Right Arm] Pulse Oximetry 95 95 Oxygen Delivery Method Room Air Room Air Sepsis Recent Fever Within 48 Hours Sepsis New/Unexplained Change in Mental Status Sepsis Action Taken by Retirement Medications Current Medication List: was personally reviewed by me Laboratory Data Attestation: I reviewed the patient's lab results. Result diagrams: 02/20/21 06:36 02/20/21 06:36 Lab Results 02/19/21 02/19/21 02/19/21 Range/Units 12:31 12:31 12:31 WBC 23.28 H (4.8-10.8) K/uL RBC 5.41 (4.7-6.1) M/uL Hgb 14.5 (14.0-18.0) g/dL Hct 44.6 (42-52) % MCV 82.4 (80-100) fL MCH 26.8 (25-34) pg MCHC 32.5 (32-36) g/dL RDW Std Deviation 46.5 H (36.4-46.3) fL RDW Coeff of Thea 15.5 H (11.5-14.5) % Plt Count 231 (130-400) K/uL MPV 9.5 (7.4-10.4) fL Immature Gran % (Auto) 0.5 % Neut % (Auto) 87.7 % Lymph % (Auto) 5.5 % Burke % (Auto) 5.8 % Eos % (Auto) 0.4 % Baso % (Auto) 0.1 % Neut # (Auto) 20.42 H (1.4-6.5) K/uL Lymph # (Auto) 1.28 (1.2-3.4) K/uL Burke # (Auto) 1.34 H (0.11-0.59) K/uL Eos # (Auto) 0.10 (0-0.5) K/uL Baso # (Auto) 0.03 (0-0.2) K/uL Immature Gran # (Auto) 0.11 H (0.00-0.02) K/uL ESR 63 H (0-20) mm/hr Sodium 138 (136-145) mmol/L Potassium 4.1 (3.5-5.1) mmol/L Chloride 103 (98-107) mmol/L Carbon Dioxide 31 (21-32) mmol/L Anion Gap 4.0 (3-11) BUN 14 (7-18) mg/dl Creatinine 1.49 H (0.6-1.4) mg/dl Est Cr Clr Drug Dosing 77.5 ml/min Est GFR ( Amer) 56.7 ml/min Est GFR (Non-Af Amer) 48.9 ml/min BUN/Creatinine Ratio 9.5 L (10-20) Glucose 96 (70-99) mg/dl Lactate (0.4-2.0) mmol/L Calcium 9.3 (8.5-10.1) mg/dl Total Bilirubin 0.8 (0.2-1) mg/dl AST 14 L (15-37) U/L ALT 32 (12-78) U/L Alkaline Phosphatase 106 (45-117) U/L Troponin I < 0.015 (0-0.045) ng/ml C-Reactive Protein 11.50 H (0-0.29) mg/dl Total Protein 8.3 H (6.4-8.2) gm/dl Albumin 3.1 L (3.4-5.0) gm/dl Globulin 5.2 H (2.5-4.0) gm/dl Albumin/Globulin Ratio 0.6 L (0.9-2) Lipase 66 L (73-393) U/L Procalcitonin (0-0.5) ng/ml Urine Color Urine Appearance (Clear) Urine pH (4.5-7.5) Ur Specific [place] (1.000-1.030) Urine Protein (Negative) Urine Glucose (UA) (Negative) Urine Ketones (Negative) Urine Blood (Negative) Urine Nitrite (Negative) Urine Bilirubin (Negative) Urine Urobilinogen (Negative) Ur Leukocyte Esterase (Negative) Urine WBC (Auto) (0-5) /hpf Urine RBC (Auto) (0-4) /hpf U Hyaline Cast (Auto) (0-5) /lpf U Epithel Cells (Auto) (0-5) /lpf Urine Bacteria (Auto) (Negative) COVID-19 Eval Order SARS-CoV-2 (PCR) (Negative) 02/19/21 02/19/21 02/19/21 Range/Units 12:31 12:31 13:34 WBC (4.8-10.8) K/uL RBC (4.7-6.1) M/uL Hgb (14.0-18.0) g/dL Hct (42-52) % MCV (80-100) fL MCH (25-34) pg MCHC (32-36) g/dL RDW Std Deviation (36.4-46.3) fL RDW Coeff of Thea (11.5-14.5) % Plt Count (130-400) K/uL MPV (7.4-10.4) fL Immature Gran % (Auto) % Neut % (Auto) % Lymph % (Auto) % Burke % (Auto) % Eos % (Auto) % Baso % (Auto) % Neut # (Auto) (1.4-6.5) K/uL Lymph # (Auto) (1.2-3.4) K/uL Burke # (Auto) (0.11-0.59) K/uL Eos # (Auto) (0-0.5) K/uL Baso # (Auto) (0-0.2) K/uL Immature Gran # (Auto) (0.00-0.02) K/uL ESR (0-20) mm/hr Sodium (136-145) mmol/L Potassium (3.5-5.1) mmol/L Chloride (98-107) mmol/L Carbon Dioxide (21-32) mmol/L Anion Gap (3-11) BUN (7-18) mg/dl Creatinine (0.6-1.4) mg/dl Est Cr Clr Drug Dosing ml/min Est GFR ( Amer) ml/min Est GFR (Non-Af Amer) ml/min BUN/Creatinine Ratio (10-20) Glucose (70-99) mg/dl Lactate 1.6 (0.4-2.0) mmol/L Calcium (8.5-10.1) mg/dl Total Bilirubin (0.2-1) mg/dl AST (15-37) U/L ALT (12-78) U/L Alkaline Phosphatase (45-117) U/L Troponin I (0-0.045) ng/ml C-Reactive Protein (0-0.29) mg/dl Total Protein (6.4-8.2) gm/dl Albumin (3.4-5.0) gm/dl Globulin (2.5-4.0) gm/dl Albumin/Globulin Ratio (0.9-2) Lipase (73-393) U/L Procalcitonin 0.21 (0-0.5) ng/ml Urine Color Yellow Urine Appearance Clear (Clear) Urine pH 6.5 (4.5-7.5) Ur Specific [place] 1.012 (1.000-1.030) Urine Protein Negative (Negative) Urine Glucose (UA) Negative (Negative) Urine Ketones Negative (Negative) Urine Blood Trace H (Negative) Urine Nitrite Negative (Negative) Urine Bilirubin Negative (Negative) Urine Urobilinogen Negative (Negative) Ur Leukocyte Esterase 2+ H (Negative) Urine WBC (Auto) >30 H (0-5) /hpf Urine RBC (Auto) 5-10 H (0-4) /hpf U Hyaline Cast (Auto) 5-10 H (0-5) /lpf U Epithel Cells (Auto) 20-30 H (0-5) /lpf Urine Bacteria (Auto) Negative (Negative) COVID-19 Eval Order SARS-CoV-2 (PCR) (Negative) 02/19/21 02/19/21 Range/Units 13:49 13:49 WBC (4.8-10.8) K/uL RBC (4.7-6.1) M/uL Hgb (14.0-18.0) g/dL Hct (42-52) % MCV (80-100) fL MCH (25-34) pg MCHC (32-36) g/dL RDW Std Deviation (36.4-46.3) fL RDW Coeff of Thea (11.5-14.5) % Plt Count (130-400) K/uL MPV (7.4-10.4) fL Immature Gran % (Auto) % Neut % (Auto) % Lymph % (Auto) % Burke % (Auto) % Eos % (Auto) % Baso % (Auto) % Neut # (Auto) (1.4-6.5) K/uL Lymph # (Auto) (1.2-3.4) K/uL Burke # (Auto) (0.11-0.59) K/uL Eos # (Auto) (0-0.5) K/uL Baso # (Auto) (0-0.2) K/uL Immature Gran # (Auto) (0.00-0.02) K/uL ESR (0-20) mm/hr Sodium (136-145) mmol/L Potassium (3.5-5.1) mmol/L Chloride (98-107) mmol/L Carbon Dioxide (21-32) mmol/L Anion Gap (3-11) BUN (7-18) mg/dl Creatinine (0.6-1.4) mg/dl Est Cr Clr Drug Dosing ml/min Est GFR ( Amer) ml/min Est GFR (Non-Af Amer) ml/min BUN/Creatinine Ratio (10-20) Glucose (70-99) mg/dl Lactate (0.4-2.0) mmol/L Calcium (8.5-10.1) mg/dl Total Bilirubin (0.2-1) mg/dl AST (15-37) U/L ALT (12-78) U/L Alkaline Phosphatase (45-117) U/L Troponin I (0-0.045) ng/ml C-Reactive Protein (0-0.29) mg/dl Total Protein (6.4-8.2) gm/dl Albumin (3.4-5.0) gm/dl Globulin (2.5-4.0) gm/dl Albumin/Globulin Ratio (0.9-2) Lipase (73-393) U/L Procalcitonin (0-0.5) ng/ml Urine Color Urine Appearance (Clear) Urine pH (4.5-7.5) Ur Specific [place] (1.000-1.030) Urine Protein (Negative) Urine Glucose (UA) (Negative) Urine Ketones (Negative) Urine Blood (Negative) Urine Nitrite (Negative) Urine Bilirubin (Negative) Urine Urobilinogen (Negative) Ur Leukocyte Esterase (Negative) Urine WBC (Auto) (0-5) /hpf Urine RBC (Auto) (0-4) /hpf U Hyaline Cast (Auto) (0-5) /lpf U Epithel Cells (Auto) (0-5) /lpf Urine Bacteria (Auto) (Negative) COVID-19 Eval Order Covid19 at [facility] SARS-CoV-2 (PCR) NEGATIVE (Negative) Administered Medications Acetaminophen (Acetaminophen 325 Mg Tab) 650 mg PO Q4H PRN PRN Reason: Pain or Fever Stop: 03/21/21 17:33 Last Admin: 02/19/21 18:22 Dose: 650 mg Documented by: [id number] Aspirin (Aspirin 81 Mg Ectab) [facility] Stop: 03/22/21 08:59 Last Admin: 02/20/21 08:16 Dose: 81 mg Documented by: [id number] Atorvastatin Calcium (Atorvastatin 40 Mg Tab) [facility] Stop: 03/22/21 08:59 Last Admin: 02/20/21 08:16 Dose: 40 mg Documented by: [id number] Bupropion HCl (Bupropion Sr 150 Mg Tabcr) 150 mg PO BID [facility] Stop: 03/21/21 20:59 Last Admin: 02/20/21 08:16 Dose: 150 mg Documented by: [id number] Admin: 02/19/21 20:16 Dose: 150 mg Documented by: [id number] Heparin Sodium (Porcine) (Heparin Sod 5,000 Unit/0.5 Ml Vial) 7,500 units SQ Q8 [facility] Stop: 03/21/21 21:59 Last Admin: 02/20/21 14:55 Dose: 7,500 units Documented by: [id number] Admin: 02/20/21 08:16 Dose: 7,500 units Documented by: [id number] Admin: 02/19/21 20:14 Dose: 7,500 units Documented by: [id number] Levofloxacin/Dextrose (Levaquin/D5w) 500 mg in 100 mls @ 100 mls/hr IV Q24H [facility] Stop: 02/27/21 13:59 Last Infusion: 02/20/21 16:00 Dose: 0 mls/hr Documented by: [id number] Admin: 02/20/21 14:55 Dose: 100 mls/hr Documented by: [id number] Tamsulosin HCl (Tamsulosin Hcl 0.4 Mg Cap) 0.4 mg PO HS [facility] Stop: 03/21/21 20:59 Last Admin: 02/19/21 20:17 Dose: 0.4 mg Documented by: [id number] Discontinued Medications Acetaminophen (Acetaminophen 500 Mg Tab) 1,000 mg PO ONE STA Stop: 02/19/21 12:05 Last Admin: 02/19/21 12:13 Dose: 1,000 mg Documented by: [id number] Sodium Chloride (Nss) 500 mls @ 999 mls/hr IV .Q31M STA Stop: 02/19/21 12:34 Last Infusion: 02/19/21 13:07 Dose: 0 mls/hr Documented by: [id number] Admin: 02/19/21 12:36 Dose: 999 mls/hr Documented by: [id number] Ceftriaxone Sodium (Rocephin) 2,000 mg in 70 mls @ 140 mls/hr IV NOW STA Stop: 02/19/21 12:35 Last Infusion: 02/19/21 13:07 Dose: 0 mls/hr Documented by: [id number] Admin: 02/19/21 12:37 Dose: 140 mls/hr Documented by: [id number] Sodium Chloride (Nss 1000ml) 1,000 mls @ 999 mls/hr IV .Q1H1M ONE Stop: 02/19/21 14:57 Last Infusion: 02/19/21 15:07 Dose: 0 mls/hr Documented by: [id number] Admin: 02/19/21 14:06 Dose: 999 mls/hr Documented by: [id number] Levofloxacin/Dextrose (Levaquin/D5w) 500 mg in 100 mls @ 100 mls/hr IV NOW ONE Stop: 02/19/21 15:29 Last Infusion: 02/19/21 15:37 Dose: 0 mls/hr Documented by: [id number] Admin: 02/19/21 14:37 Dose: 100 mls/hr Documented by: [id number] Sodium Chloride (Nss 1000ml) 1,000 mls @ 100 mls/hr IV .Q10H [facility]IR[facility] Stop: 03/21/21 17:33 Last Infusion: 02/20/21 18:07 Dose: 0 mls/hr Documented by: [id number] Admin: 02/20/21 06:57 Dose: 100 mls/hr Documented by: [id number] Infusion: 02/20/21 06:56 Dose: 0 mls/hr Documented by: [id number] Admin: 02/19/21 18:21 Dose: 100 mls/hr Documented by: [id number] Imaging Data Radiologist's Impression: Chest X-Ray 02/19/21 12:04 XR chest 1V portable CLINICAL HISTORY: Fever COMPARISON STUDY: 09/23/2017 FINDINGS: The heart is enlarged. The patient is hyperinflated. Indistinctness of the cardiac phrenic angles, likely secondary to prominent fat pads. There is no failure. There is no lobar consolidation.[ IMPRESSION: 1. Prominent cardiophrenic angle fat pads. No evidence of focal pulmonary consolidation ACT 112: Negative or not required by law. Electronically signed by: Vishnu Maza M.D. 02/19/2021 12:52 PM Scrotum Ultrasound 02/19/21 12:11 ULTRASOUND TESTES AND SCROTUM CLINICAL HISTORY: Right testicular pain and swelling. COMPARISON STUDY: No priors. TECHNIQUE: Real-time, grayscale, and color Doppler sonography of the testes and scrotum is performed. Images are reviewed in the transverse and longitudinal planes. FINDINGS: The testes are normal in size and homogeneous in echotexture. The right testis measures 5.5 x 3.2 x 3.4 cm and the left testis measures 4.7 x 2.8 x 4.0 cm. No intratesticular mass is seen. The right testis is hyperemic as compared to the left. Normal Doppler waveforms are identified in both testes. The right epididymis appears hyperemic. The right epididymal head measures 1.3 cm in length and the left epididymal head measures 1.2 cm in length. There is a moderate and mildly complex/septated right-sided hydrocele. There is trace left-sided hydrocele. No varicocele is seen. IMPRESSION: 1. Findings suggest right-sided epididymoorchitis. Clinical correlation will be required. 2. There is a moderate and minimally complex/septated right-sided hydrocele. 3. Trace hydrocele is seen on the left. ACT 112: Negative or not required by law. Electronically signed by: Ashok Marquez M.D. 02/19/2021 1:31 PM Discharge Plan Visit Data Chief Complaint: Testicular Pain Stated Complaint: RT TESTICULAR PAIN AND SWELLING ED Provider: Skyler Marx Discharge Problem: Acute epididymo-orchitis Patient Disposition: Admitted As Inpatient Condition: Good Discharge Instructions Interventions: ED Discharge Assessment Last Done: 02/19/21 16:45
[2021-02-19 12:46] LABS: Hematocrit (blood only) 44.6 % (42-52); Hemoglobin 14.5 g/dL (14.0-18.0); Mean Corpuscular Hemoglobin 26.8 pg (25-34); Mean Corpuscular Hgb Conc 32.5 g/dL (32-36); Mean Corpuscular Volume 82.4 fL (80-100); Mean Platelet Volume 9.5 fL (7.4-10.4); Platelet Count 231 K/uL (130-400); RDW Coefficient of Variation 15.5 % (11.5-14.5); RDW Standard Deviation 46.5 fL (36.4-46.3); Red Blood Count 5.41 M/uL (4.7-6.1); White Blood Count 23.28 K/uL (4.8-10.8)
--- NOTE | 2021-02-19 12:53 | XRay Report ---
XR chest 1V portable CLINICAL HISTORY: Fever COMPARISON STUDY: 09/23/2017 FINDINGS: The heart is enlarged. The patient is hyperinflated. Indistinctness of the cardiac phrenic angles, likely secondary to prominent fat pads. There is no failure. There is no lobar consolidation. [ IMPRESSION: 1. Prominent cardiophrenic angle fat pads. No evidence of focal pulmonary consolidation ACT 112: Negative or not required by law. Electronically signed by: Vishnu Maza M.D. 02/19/2021 12:52 PM
[2021-02-19 13:07] LABS: Alanine Aminotransferase 32 U/L (12-78); Albumin Level 3.1 gm/dl (3.4-5.0); Aspartate Aminotransferase 14 U/L (15-37); BUN Creatinine Ratio 9.5 (10-20); Basophils # (auto) 0.03 K/uL (0-0.2); Basophils % (auto) 0.1 %; Blood Urea Nitrogen 14 mg/dl (7-18); Calcium 9.3 mg/dl (8.5-10.1); Carbon Dioxide 31 mmol/L (21-32); Chloride 103 mmol/L (98-107); Creatinine Clr Calc Pharmacy 77.5 ml/min; Eosinophils % (auto) 0.4 %; Est GFR (African American) 56.7 ml/min; Est GFR (Non-African American) 48.9 ml/min; Glucose 96 mg/dl (70-99); Immature Granulocytes # (auto) 0.11 K/uL (0.00-0.02); Immature Granulocytes % (auto) 0.5 %; Lipase 66 U/L (73-393); Lymphocytes # (auto) 1.28 K/uL (1.2-3.4); Lymphocytes % (auto) 5.5 %; Monocytes # (auto) 1.34 K/uL (0.11-0.59); Monocytes % (auto) 5.8 %; Neutrophils # (auto) 20.42 K/uL (1.4-6.5); Neutrophils % (auto) 87.7 %; Potassium 4.1 mmol/L (3.5-5.1); Sodium 138 mmol/L (136-145)
[2021-02-19 13:12] LABS: Albumin Globulin Ratio 0.6 (0.9-2); Alkaline Phosphatase 106 U/L (45-117); Bilirubin,Total 0.8 mg/dl (0.2-1); Globulin 5.2 gm/dl (2.5-4.0); Total Protein 8.3 gm/dl (6.4-8.2); Troponin I < 0.015 ng/ml (0-0.045)
--- NOTE | 2021-02-19 13:32 | Ultrasound Report ---
ULTRASOUND TESTES AND SCROTUM CLINICAL HISTORY: Right testicular pain and swelling. COMPARISON STUDY: No priors. TECHNIQUE: Real-time, grayscale, and color Doppler sonography of the testes and scrotum is performed. Images are reviewed in the transverse and longitudinal planes. FINDINGS: The testes are normal in size and homogeneous in echotexture. The right testis measures 5.5 x 3.2 x 3 .4 cm and the left testis measures 4.7 x 2.8 x 4.0 cm. No intratesticular mass is seen. The right jaycee tis is hyperemic as compared to the left. Normal Doppler waveforms are identified in both testes. The right epididymis appears hyperemic. The right epididymal head measures 1.3 cm in length and the l eft epididymal head measures 1.2 cm in length. There is a moderate and mildly complex/septated right-sided hydrocele. There is trace left-sided hydr ocele. No varicocele is seen. IMPRESSION: 1. Findings suggest right-sided epididymoorchitis. Clinical correlation will be required. 2. There is a moderate and minimally complex/septated right-sided hydrocele. 3. Trace hydrocele is seen on the left. ACT 112: Negative or not required by law. Electronically signed by: Ashok Marquez M.D. 02/19/2021 1:31 PM
[2021-02-19 13:47] LABS: Appearance Urine Clear (Clear); Bacteria Urine Automated Negative (Negative); Bilirubin Urine Negative (Negative); Blood Urine Trace (Negative); Color Urine Yellow; Epithelial Cell Urine Auto 20-30 /lpf (0-5); Glucose Urine UA Negative (Negative); Ketones Urine Negative (Negative); Leukocyte Esterase Urine 2+ (Negative); Nitrite Urine Negative (Negative); Protein Urine Negative (Negative); Specific Gravity Urine 1.012 (1.000-1.030); Urobilinogen Urine Negative (Negative); WBC Urine Automated >30 /hpf (0-5); pH Urine 6.5 (4.5-7.5)
[2021-02-19] MEDS ORDERED: SODIUM CHLORIDE 0.9% 1000ML 1,000 ML IV ONE (13:57)
[2021-02-19] MEDS ORDERED: levoFLOXacin/D5W 500 MG/100 ML BAG IV ONE (14:30)
--- NOTE | 2021-02-19 15:20 | History & Physical Report ---
Date of Service February 19, 2021 Assessment & Plan (1) Epididymoorchitis: Plan: IV Levaquin 500 mg started in the emergency room okay to continue Plain CT of the abdomen and pelvis, borderline creatinine likely to elevated for contrast Patient is known to Dr. Willis, will consult for further recommendations (2) Severe obstructive sleep apnea: Plan: Order CPAP nightly per patient settings at home (3) BPH (benign prostatic hyperplasia): Plan: Continue Flomax per outpatient dosing (4) Hypertension: Plan: Patient is on Lasix 40 mg daily, will hold for now considering patient's relative hypotension in ER Last blood pressure noted at 128/60 which is significantly improved (5) Hypercholesterolemia: Plan: Atorvastatin 40 mg daily (6) Stage III chronic kidney disease: Plan: Monitor renal function, likely at baseline. Patient is not reporting any issues with the urination. History of Present Illness Chief Complaint: Right testicular pain Primary Care Provider: Tracy David, This is a 65-year-old male with past medical history of prediabetes and BPH that presents today complaining of right scrotal pain. Patient tells me has been having some mild pain in that area for the past week. He is noted worsening swelling and erythema as well. The pain is mostly localized to the testicle, scrotum, and immediate groin without any radiation. Does not have any flank pain. He has been having fevers at home over the past 48 hours. This continue to be worse which is what prompted him to come to the emergency room. He did have some tachycardia and hypotension but seems responding well to fluids. Scrotal ultrasound shows epididymoorchitis on the right and the patient is now being placed in observation for further monitoring and treatment of this. Allergies Allergy/AdvReac Type Severity Reaction Status Date / Time No Known Drug Allergies Allergy Verified 02/19/21 12:43 Home Medications Medication Instructions Recorded Confirmed Type aspirin 81 mg tablet,delayed 81 mg PO QAM 08/30/18 02/19/21 History release bupropion HCl 150 mg tablet,12 hr See Rx Instructions .ROUTE 07/02/20 02/19/21 Rx sustained-release .COMPLEX #60 tablet atorvastatin 40 mg tablet (Lipitor) 40 mg PO QAM #90 tab 08/14/20 02/19/21 Rx furosemide 40 mg tablet 40 mg PO QAM #90 tab 09/04/20 02/19/21 Rx tamsulosin 0.4 mg capsule 0.4 mg PO HS 90 Days #90 cap 12/05/20 02/19/21 Rx Past Med/Surg History Medical History BPH (benign prostatic hyperplasia) COPD (chronic obstructive pulmonary disease) Degenerative disc disease Depression with anxiety Erectile dysfunction History of anesthesia reaction after ankle sx had "a really bad headache" Hypercholesterolemia Hypertension Kidney stones Lumbar disc disease Lumbar radiculopathy Lymphedema Morbid obesity Neurogenic bladder Polymyalgia rheumatica Prediabetes Proteinuria Severe obstructive sleep apnea Stage III chronic kidney disease Urinary retention Vitamin D deficiency Surgical History H/O cystoscopy H/O transurethral resection of prostate H/O umbilical hernia repair History of ankle surgery History of open reduction and internal fixation (ORIF) procedure left ankle--hardware in place History of wisdom tooth extraction Family History Daughter Family history of reaction to anesthesia difficulty waking Father Diabetes Hypertension Mother Diabetes Hypertension Arthritis Sister Family history of diabetes mellitus Uncle Colorectal cancer Maternal uncle. Denies family history of Ovarian cancer Prostate cancer Myocardial infarction Breast cancer Social History Smoking Status: Never smoker Tobacco Type: Cigarettes and Smokeless Tobacco (Dip or Chew) packs per day: 1; Years Smoked: 50; Second Hand Exposure: Yes (parents smoked); Hx Alcohol Use: Yes Alcohol type: beer and wine Alcohol Intake Frequency: 2-3 x/Week Hx Substance Use: No Preferred Language: Faroese Communication Ability: Effective Visual Impairment: No Limitations Hearing Ability: Normal Statistical Clerk Required: No Beliefs That Will Affect Care: None marital status: Single Current Living Situation: Family Current Living Situation Comment: Lives with daughter current occupational status: disabled How many Children do You have: 4 Feels Safe at Home: Yes Childhood Exposure to Second-Hand Smoke: Yes caffeine: Yes during the past year weight has: remained stable Dental Care, Regularly: No Physical Activity Frequency: 1-2 Times per Week Seatbelt Use: always Sunscreen Use: No Assistive Devices: Glasses Review of Systems Constitutional: + fever; no chills, no weakness, no weight loss and no weight gain Eyes: as per Subjective / HPI Respiratory: no cough, no chest congestion, no dyspnea and no dyspnea on exertion Cardiovascular: no chest pain, no orthopnea, no palpitations, no lightheadedness and no edema Gastrointestinal: no abdominal pain, no nausea, no vomiting, no constipation and no diarrhea/loose stools Genitourinary: + scrotal swelling and + testicle pain; no dysuria, no difficulty urinating, no urinary frequency, no urinary hesitancy or no penile discharge Musculoskeletal: no back pain, no neck pain, no joint pain, no stiffness and no myalgia Integumentary: no rash Neurologic: no gait abnormality, no unsteadiness, no falls and no generalized weakness Physical Exam Constitutional: cooperative; no acute distress Neck: trachea midline, no thyromegaly Respiratory: normal respiratory effort Auscultation: lungs clear to auscultation bilaterally; no crackles, no rales, no rhonchi and no wheezes Cardiovascular: Rate/Rhythm: regular rate and regular rhythm Heart Sounds: normal S1 and normal S2 Gastrointestinal (Abdomen): Inspection/Auscultation: abdomen normal to inspection Percussion/Palpation: abdomen soft; abdomen nontender, no gu arding, abdomen not rigid and no hepatosplenomegaly Skin: no rashes, warm and dry Genitourinary: Right testicle mildly tender with palpation, scrotum is erythematous. Minimal erythema tracking into the medial groin. Results & Data Results & Data ([facility]) Vital Signs (Past 12 Hours) Vital Signs Temp Pulse Pulse Resp BP BP Pulse Ox 02/19/21 15:00 111 H 21 128/60 95 02/19/21 14:30 110 H 26 H 113/50 L 94 02/19/21 14:08 108 H 27 H 121/60 93 02/19/21 14:04 37.9 C H 02/19/21 14:00 108 H 23 106/60 92 02/19/21 13:36 113 H 18 91/60 L 92 02/19/21 12:32 120 H 27 H 95 02/19/21 12:02 38.3 C H 02/19/21 12:00 111 H 22 160/116 H 93 02/19/21 11:17 38 C H 115 H 20 158/75 H 95 Laboratory Results Laboratory Results WBC 23.28 K/uL (4.8-10.8) H 02/19/21 12:31 RBC 5.41 M/uL (4.7-6.1) 02/19/21 12:31 Hgb 14.5 g/dL (14.0-18.0) 02/19/21 12:31 Hct 44.6 % (42-52) 02/19/21 12:31 MCV 82.4 fL (80-100) 02/19/21 12:31 MCH 26.8 pg (25-34) 02/19/21 12:31 MCHC 32.5 g/dL (32-36) 02/19/21 12:31 RDW Std Deviation 46.5 fL (36.4-46.3) H 02/19/21 12:31 RDW Coeff of Thea 15.5 % (11.5-14.5) H 02/19/21 12:31 Plt Count 231 K/uL (130-400) 02/19/21 12:31 MPV 9.5 fL (7.4-10.4) 02/19/21 12:31 Immature Gran % (Auto) 0.5 % 02/19/21 12:31 Neut % (Auto) 87.7 % 02/19/21 12:31 Lymph % (Auto) 5.5 % 02/19/21 12:31 [place] % (Auto) 5.8 % 02/19/21 12:31 Eos % (Auto) 0.4 % 02/19/21 12:31 Baso % (Auto) 0.1 % 02/19/21 12:31 Neut # (Auto) 20.42 K/uL (1.4-6.5) H 02/19/21 12:31 Lymph # (Auto) 1.28 K/uL (1.2-3.4) 02/19/21 12:31 [place] # (Auto) 1.34 K/uL (0.11-0.59) H 02/19/21 12:31 Eos # (Auto) 0.10 K/uL (0-0.5) 02/19/21 12:31 Baso # (Auto) 0.03 K/uL (0-0.2) 02/19/21 12:31 Immature Gran # (Auto) 0.11 K/uL (0.00-0.02) H 02/19/21 12:31 ESR 63 mm/hr (0-20) H 02/19/21 12:31 Sodium 138 mmol/L (136-145) 02/19/21 12:31 Potassium 4.1 mmol/L (3.5-5.1) 02/19/21 12:31 Chloride 103 mmol/L (98-107) 02/19/21 12:31 Carbon Dioxide 31 mmol/L (21-32) 02/19/21 12:31 Anion Gap 4.0 (3-11) 02/19/21 12:31 BUN 14 mg/dl (7-18) 02/19/21 12:31 Creatinine 1.49 mg/dl (0.6-1.4) H 02/19/21 12:31 Est Cr Clr Drug Dosing 77.5 ml/min 02/19/21 12:31 Est GFR ( Amer) 56.7 ml/min 02/19/21 12:31 Est GFR (Non-Af Amer) 48.9 ml/min 02/19/21 12:31 BUN/Creatinine Ratio 9.5 (10-20) L 02/19/21 12:31 Glucose 96 mg/dl (70-99) 02/19/21 12:31 Lactate 1.6 mmol/L (0.4-2.0) 02/19/21 12:31 Calcium 9.3 mg/dl (8.5-10.1) 02/19/21 12:31 Total Bilirubin 0.8 mg/dl (0.2-1) 02/19/21 12:31 AST 14 U/L (15-37) L 02/19/21 12:31 ALT 32 U/L (12-78) 02/19/21 12:31 Alkaline Phosphatase 106 U/L (45-117) 02/19/21 12:31 Troponin I < 0.015 ng/ml (0-0.045) 02/19/21 12:31 C-Reactive Protein 11.50 mg/dl (0-0.29) H 02/19/21 12:31 Total Protein 8.3 gm/dl (6.4-8.2) H 02/19/21 12:31 Albumin 3.1 gm/dl (3.4-5.0) L 02/19/21 12:31 Globulin 5.2 gm/dl (2.5-4.0) H 02/19/21 12:31 Albumin/Globulin Ratio 0.6 (0.9-2) L 02/19/21 12:31 Lipase 66 U/L (73-393) L 02/19/21 12:31 Procalcitonin 0.21 ng/ml (0-0.5) 02/19/21 12:31 Urine Color Yellow 02/19/21 13:34 Urine Appearance Clear (Clear) 02/19/21 13:34 Urine pH 6.5 (4.5-7.5) 02/19/21 13:34 Ur Specific [place] 1.012 (1.000-1.030) 02/19/21 13:34 Urine Protein Negative (Negative) 02/19/21 13:34 Urine Glucose (UA) Negative (Negative) 02/19/21 13:34 Urine Ketones Negative (Negative) 02/19/21 13:34 Urine Blood Trace (Negative) H 02/19/21 13:34 Urine Nitrite Negative (Negative) 02/19/21 13:34 Urine Bilirubin Negative (Negative) 02/19/21 13:34 Urine Urobilinogen Negative (Negative) 02/19/21 13:34 Ur Leukocyte Esterase 2+ (Negative) H 02/19/21 13:34 Urine WBC (Auto) >30 /hpf (0-5) H 02/19/21 13:34 Urine RBC (Auto) 5-10 /hpf (0-4) H 02/19/21 13:34 U Hyaline Cast (Auto) 5-10 /lpf (0-5) H 02/19/21 13:34 U Epithel Cells (Auto) 20-30 /lpf (0-5) H 02/19/21 13:34 Urine Bacteria (Auto) Negative (Negative) 02/19/21 13:34 COVID-19 Eval Order Covid19 at [facility] 02/19/21 13:49 SARS-CoV-2 (PCR) NEGATIVE (Negative) 02/19/21 13:49 Impressions Chest X-Ray 02/19/21 12:04 XR chest 1V portable CLINICAL HISTORY: Fever COMPARISON STUDY: 09/23/2017 FINDINGS: The heart is enlarged. The patient is hyperinflated. Indistinctness of the cardiac phrenic angles, likely secondary to prominent fat pads. There is no failure. There is no lobar consolidation.[ IMPRESSION: 1. Prominent cardiophrenic angle fat pads. No evidence of focal pulmonary consolidation ACT 112: Negative or not required by law. Electronically signed by: Vishnu Maza M.D. 02/19/2021 12:52 PM Scrotum Ultrasound 02/19/21 12:11 ULTRASOUND TESTES AND SCROTUM CLINICAL HISTORY: Right testicular pain and swelling. COMPARISON STUDY: No priors. TECHNIQUE: Real-time, grayscale, and color Doppler sonography of the testes and scrotum is performed. Images are reviewed in the transverse and longitudinal planes. FINDINGS: The testes are normal in size and homogeneous in echotexture. The right testis measures 5.5 x 3.2 x 3.4 cm and the left testis measures 4.7 x 2.8 x 4.0 cm. No intratesticular mass is seen. The right testis is hyperemic as compared to the left. Normal Doppler waveforms are identified in both testes. The right epididymis appears hyperemic. The right epididymal head measures 1.3 cm in length and the left epididymal head measures 1.2 cm in length. There is a moderate and mildly complex/septated right-sided hydrocele. There is trace left-sided hydrocele. No varicocele is seen. IMPRESSION: 1. Findings suggest right-sided epididymoorchitis. Clinical correlation will be required. 2. There is a moderate and minimally complex/septated right-sided hydrocele. 3. Trace hydrocele is seen on the left. ACT 112: Negative or not required by law. Electronically signed by: Ashok Marquez M.D. 02/19/2021 1:31 PM PG Care Time/CCT Total # of Minutes Spent Total Time Spent with Patient: Total time spent is greater than 50% in coordination of care (as documented) at patient's floor/unit and/or counseling patient: Coding Level of Care Code 43467 Initial Inpt Care Lvl 3 Diagnoses Severe obstructive sleep apnea G47.33 BPH (benign prostatic hyperplasia) N40.0 Hypertension I10 Hypercholesterolemia E78.00 Stage III chronic kidney disease N18.3 Epididymoorchitis N45.3
--- NOTE | 2021-02-19 16:30 | Electrocardiogram Report ---
Test Reason : Blood Pressure : / mmHG Vent. Rate : 123 BPM Atrial Rate : 123 BPM P-R Int : 138 ms QRS Dur : 100 ms QT Int : 332 ms P-R-T Axes : 058 110 032 degrees QTc Int : 475 ms Sinus tachycardia Right axis deviation Incomplete right bundle branch block Abnormal ECG When compared with ECG of 23-SEP-2017 22:01, Incomplete right bundle branch block is now Present Confirmed by Skyler Brito ([id number]) on 02/19/2021 4:29:35 PM Referred By: REFERRED SELF Confirmed By:Skyler Brito
[2021-02-19] MEDS ORDERED: ACETAMINOPHEN 325 MG TAB PO PRN (17:34)
[2021-02-19] MEDS ORDERED: ONDANSETRON INJ 2 MG/ML 2 ML VIAL IV PRN (17:34)
[2021-02-19] MEDS: SODIUM CHLORIDE 0.9% 1000ML 1,000 ML IV SCH (18:21)
[2021-02-19] MEDS: HEPARIN SOD 5,000 UNIT/0.5 ML VIAL SQ SCH (20:14)
[2021-02-19] MEDS: buPROPion SR 150 MG TABCR PO SCH (20:16)
[2021-02-19] MEDS: TAMSULOSIN HCL 0.4 MG CAP PO SCH (20:17)
[2021-02-20] MEDS: SODIUM CHLORIDE 0.9% 1000ML 1,000 ML IV SCH (06:57)
[2021-02-20 07:11] LABS: Basophils # (auto) 0.02 K/uL (0-0.2); Basophils % (auto) 0.1 %; Eosinophils # (auto) 0.13 K/uL (0-0.5); Eosinophils % (auto) 0.6 %; Hematocrit (blood only) 40.7 % (42-52); Hemoglobin 12.8 g/dL (14.0-18.0); Immature Granulocytes # (auto) 0.08 K/uL (0.00-0.02); Immature Granulocytes % (auto) 0.4 %; Lymphocytes # (auto) 1.52 K/uL (1.2-3.4); Mean Corpuscular Hemoglobin 26.2 pg (25-34); Mean Corpuscular Hgb Conc 31.4 g/dL (32-36); Mean Corpuscular Volume 83.4 fL (80-100); Mean Platelet Volume 9.6 fL (7.4-10.4); Monocytes # (auto) 1.29 K/uL (0.11-0.59); Neutrophils # (auto) 18.57 K/uL (1.4-6.5); Neutrophils % (auto) 85.9 %; Platelet Count 214 K/uL (130-400); RDW Coefficient of Variation 15.9 % (11.5-14.5); RDW Standard Deviation 48.7 fL (36.4-46.3); Red Blood Count 4.88 M/uL (4.7-6.1); White Blood Count 21.61 K/uL (4.8-10.8)
[2021-02-20 07:51] LABS: BUN Creatinine Ratio 10.3 (10-20); Calcium 8.5 mg/dl (8.5-10.1); Creatinine Clr Calc Pharmacy 72.9 ml/min; Est GFR (African American) 52.8 ml/min; Est GFR (Non-African American) 45.6 ml/min
[2021-02-20] MEDS: ATORVASTATIN 40 MG TAB PO SCH (08:16)
[2021-02-20] MEDS: HEPARIN SOD 5,000 UNIT/0.5 ML VIAL SQ SCH ×3 (08:16→21:21)
[2021-02-20] MEDS: buPROPion SR 150 MG TABCR PO SCH ×2 (08:16→21:21)
[2021-02-20] MEDS: ASPIRIN 81 MG ECTAB PO SCH (08:16)
--- NOTE | 2021-02-20 08:55 | Urology Consultation ---
Date of Consultation February 20, 2021 Assessment & Plan (1) Epididymoorchitis: 65yo M admitted with scrotal pain secondary to right-sided epididymoorchitis - Plan of care reviewed with Dr. Willis - Scrotal US remarkable for right-sided epididymoorchitis, moderate and minimally complex/septated right-sided hydrocele, trace hydrocele on the left. - He is afebrile at present - Last fever was yesterday -Tmax 38.3 - Labs reviewed, Wbc 21.61 and creatinine 1.58 -Continue to trend - UC&S and BCx pending, on IV Levaquin - Voiding spontaneously, continue to monitor and bladder scan prn - Continue supportive care and antibiotic therapy, follow cultures - Continue flomax - Will arrange outpatient follow-up with urology service - Thank you for allowing us to participate in the acute care of Mr. Krishnan. Please reconsult us with additional questions, concerns or changes in patient status. History of Present Illness Reason for Consultation: Epididymoorchitis Attending Physician: Cb Ortega History of Present Illness 65yo M admitted with scrotal pain secondary to right-sided epididymoorchitis Patient reported first noticing right-sided scrotal pain a few days ago with associated swelling and erythema. He also noted fevers at home. His symptoms continued to worsen and he presented to the ER for evaluation. Past medical hx includes BPH, Neurogenic bladder, TASHA, COPD, HTN, prediabetes, CKD, Depression/Anxiety, morbid obesity, polymyalgia rheumatica Urology consulted for right epididymoorchitis Patient is known to the urology service, follows with Dr. Willis hx includes TURP 11/2016, neurogenic bladder, urinary retention, recurrent UTI Chart review 02/20: Currently Afebrile - Tmax 38.3 yesterday Wbc 21.61 (previously 23.28) Hgb 12.8 Cr 1.58 Urine and blood cultures pending On IV Levaquin Scrotal US: 1. Findings suggest right-sided epididymoorchitis. Clinical correlation will be required. 2. There is a moderate and minimally complex/septated right-sided hydrocele. 3. Trace hydrocele is seen on the left. Pt examined at bedside this AM. Awake, sitting up in bed on arrival. He reports feeling much better this morning. He reports scrotal swelling and right -sided tenderness, but this has improved since admission. Denies suprapubic, abdominal, and flank pain. He denies fever or chills. Denies nausea or vomiting. Tolerating PO diet. Denies hematuria and dysuria. Feels he is emptying his bladder well. Denies urgency, frequency, and hesitancy. No need to push/strain. Pt reports prior to his acute onset of symptoms a few days ago, he had been doing well from a urinary standpoint. He does report a hx of recurrent UTI, and was previously on Trimethoprim for prophylaxis, however he has not taken this antibiotic for approximately 1 year. He also noted a hx of urinary retention/incomplete emptying. He previously performed CIC and reports he still occasionally does this to ensure he is emptying his bladder completely. Per patient, he last performed CIC approx 1 month ago. Offers no additional complaints at present. Allergies Allergy/AdvReac Type Severity Reaction Status Date / Time No Known Drug Allergies Allergy Verified 02/19/21 12:43 Home Medications Medication Instructions Recorded Confirmed Type aspirin 81 mg tablet,delayed 81 mg PO QAM 08/30/18 02/19/21 History release bupropion HCl 150 mg tablet,12 hr See Rx Instructions .ROUTE 07/02/20 02/19/21 Rx sustained-release .COMPLEX #60 tablet atorvastatin 40 mg tablet (Lipitor) 40 mg PO QAM #90 tab 08/14/20 02/19/21 Rx furosemide 40 mg tablet 40 mg PO QAM #90 tab 09/04/20 02/19/21 Rx tamsulosin 0.4 mg capsule 0.4 mg PO HS 90 Days #90 cap 12/05/20 02/19/21 Rx Patient History Medical History BPH (benign prostatic hyperplasia) COPD (chronic obstructive pulmonary disease) Degenerative disc disease Depression with anxiety Erectile dysfunction History of anesthesia reaction after ankle sx had "a really bad headache" Hypercholesterolemia Hypertension Kidney stones Lumbar disc disease Lumbar radiculopathy Lymphedema Morbid obesity Neurogenic bladder Polymyalgia rheumatica Prediabetes Proteinuria Severe obstructive sleep apnea Stage III chronic kidney disease Urinary retention Vitamin D deficiency Surgical History H/O cystoscopy H/O transurethral resection of prostate H/O umbilical hernia repair History of ankle surgery History of open reduction and internal fixation (ORIF) procedure left ankle--hardware in place History of wisdom tooth extraction Family History Daughter Family history of reaction to anesthesia difficulty waking Father Diabetes Hypertension Mother Diabetes Hypertension Arthritis Sister Family history of diabetes mellitus Uncle Colorectal cancer Maternal uncle. Denies family history of Ovarian cancer Prostate cancer Myocardial infarction Breast cancer Social History Smoking Status: Former smoker Tobacco Type: Cigarettes and Smokeless Tobacco (Dip or Chew) packs per day: 1; Years Smoked: 50; Second Hand Exposure: Yes (parents smoked); Hx Substance Use: No Preferred Language: French Communication Ability: Effective Visual Impairment: No Limitations Hearing Ability: Normal Rig Mechanic Required: No Beliefs That Will Affect Care: None marital status: Single Current Living Situation: Family Current Living Situation Comment: Lives with daughter current occupational status: disabled How many Children do You have: 4 Feels Safe at Home: Yes Childhood Exposure to Second-Hand Smoke: Yes caffeine: Yes during the past year weight has: remained stable Dental Care, Regularly: No Physical Activity Frequency: 1-2 Times per Week Seatbelt Use: always Sunscreen Use: No Assistive Devices: None Review of Systems Review of Systems: All systems reviewed & are unremarkable except as noted in HPI & below Physical Exam Constitutional: + obese and cooperative; no acute distress Respiratory: normal respiratory effort; no labored breathing Gastrointestinal (Abdomen): Inspection/Auscultation: abdomen normal to inspection Musculoskeletal: Head/Neck/Chest: normocephalic Skin: Warm and dry Neurologic: awake Psychiatric: Orientation: alert and oriented x 3 Genitourinary: no CVA tenderness Scrotal edema and erythema noted. Right testicle mildly tender with palpation. Results & Data ([facility]) Vital Signs (Past 12 Hours) Vital Signs Temp Pulse Resp BP Pulse Ox 02/20/21 04:05 37.3 C 98 H 18 131/75 92 02/19/21 23:44 36.8 C 98 H 18 154/84 H 96 PG Care Time/CCT Total # of Minutes Spent Total Time Spent with Patient: Total time spent is greater than 50% in coordination of care (as documented) at patient's floor/unit and/or counseling patient: Coding Level of Care Code 83781 Initial Inpt Care Lvl 2 Diagnoses Epididymoorchitis N45.3
[2021-02-20] MEDS ORDERED: levoFLOXacin/D5W 500 MG/100 ML BAG IV SCH (14:00)
--- NOTE | 2021-02-20 17:54 | Hospitalist Progress Note ---
Date of Service February 20, 2021 Assessment & Plan (1) Epididymoorchitis: Plan: Clinically improved. Cont IV Levaquin 500 mg daily. Appreciate urology consult. Scrotal support. Await cultures. (2) Severe obstructive sleep apnea: Plan: Cont CPAP (3) BPH (benign prostatic hyperplasia): Plan: Continue Flomax no LUTS (4) Hypertension: Plan: Hold lasix Controlled (5) Hypercholesterolemia: Plan: Cont Atorvastatin 40 mg daily (6) Stage III chronic kidney disease: Plan: Cr at baseline today BMP am (7) Morbid obesity with BMI of 45.0-49.9, adult: Plan: BMI 49 (8) COPD (chronic obstructive pulmonary disease): Plan: Will need 2-step at d/c -- O2 sats in RA are borderline low at times (9) DVT prophylaxis: Plan: heparin 7500 units TID Plan: PT eval requested Admission and Anticipated Discharge Date Admission Date: February 19, 2021 Subjective patient feeling much better today scrotal swelling is down no dysuria energy and appetite are improved he has ROE but it is at baseline ambulating to bathroom no weakness tele stable overnight Review of Systems Constitutional: no fever, no chills, no fatigue and no anorexia Respiratory: + dyspnea on exertion (baseline) Cardiovascular: no chest pain Gastrointestinal: no abdominal pain, no nausea and no vomiting Physical Exam Physical Exam: gen - NAD, obese, "noisy" / loud breathing due to COPD mouth - MMM neck - no JVD heart - RRR, s1 s2, no murmur lungs - course BS b/l, mild end-exp wheeze abd - soft NT ND BS+ - scrotum, right side, swollen/inflamed with right testicle and epididymal swelling - minor tenderness today ext - pulses 2+ b/l, <1+ edema b/l ankles/feet Results & Data Results & Data ([facility]) Vital Signs (Past 12 Hours) Vital Signs Temp Pulse Pulse Pulse Resp BP BP 02/20/21 15:44 101 H 02/20/21 15:03 36.7 C 99 H 20 172/71 H 02/20/21 11:45 37.0 C 98 H 17 139/79 02/20/21 09:20 37.0 C 100 H 18 150/90 H Pulse Ox 02/20/21 15:44 02/20/21 15:03 91 02/20/21 11:45 93 02/20/21 09:20 Laboratory Results Laboratory Results - last 24 hr 02/19/21 02/20/21 02/20/21 20:45 06:36 06:36 WBC 21.61 H RBC 4.88 Hgb 12.8 L Hct 40.7 L MCV 83.4 MCH 26.2 MCHC 31.4 L RDW Std Deviation 48.7 H RDW Coeff of Thea 15.9 H Plt Count 214 MPV 9.6 Immature Gran % (Auto) 0.4 Neut % (Auto) 85.9 Lymph % (Auto) 7.0 [place] % (Auto) 6.0 Eos % (Auto) 0.6 Baso % (Auto) 0.1 Neut # (Auto) 18.57 H Lymph # (Auto) 1.52 [place] # (Auto) 1.29 H Eos # (Auto) 0.13 Baso # (Auto) 0.02 Immature Gran # (Auto) 0.08 H Sodium 137 Potassium 4.0 Chloride 107 Carbon Dioxide 26 Anion Gap 4.0 BUN 16 Creatinine 1.58 H Est Cr Clr Drug Dosing 72.9 Est GFR ( Amer) 52.8 Est GFR (Non-Af Amer) 45.6 BUN/Creatinine Ratio 10.3 Glucose 95 POC Glucose 108 H Calcium 8.5 02/20/21 02/20/21 02/20/21 07:23 11:13 16:08 WBC RBC Hgb Hct MCV MCH MCHC RDW Std Deviation RDW Coeff of Thea Plt Count MPV Immature Gran % (Auto) Neut % (Auto) Lymph % (Auto) [place] % (Auto) Eos % (Auto) Baso % (Auto) Neut # (Auto) Lymph # (Auto) [place] # (Auto) Eos # (Auto) Baso # (Auto) Immature Gran # (Auto) Sodium Potassium Chloride Carbon Dioxide Anion Gap BUN Creatinine Est Cr Clr Drug Dosing Est GFR ( Amer) Est GFR (Non-Af Amer) BUN/Creatinine Ratio Glucose POC Glucose 91 99 97 Calcium Diagnostic Findings blood/urine cx's negative to date PG Care Time/CCT Total # of Minutes Spent Total Time Spent with Patient: Total time spent is greater than 50% in coordination of care (as documented) at patient's floor/unit and/or counseling patient: Coding Level of Care Code 52202 Subseq Hosp Care Lvl 2 Diagnoses Epididymoorchitis N45.3 Severe obstructive sleep apnea G47.33 BPH (benign prostatic hyperplasia) N40.0 Hypertension I10 Hypercholesterolemia E78.00 Stage III chronic kidney disease N18.3 Morbid obesity with BMI of 45.0-49.9, adult E66.01; Z68.42 COPD (chronic obstructive pulmonary disease) J44.9 DVT prophylaxis Z29.9
[2021-02-20] MEDS: TAMSULOSIN HCL 0.4 MG CAP PO SCH (21:21)
[2021-02-21] MEDS: HEPARIN SOD 5,000 UNIT/0.5 ML VIAL SQ SCH ×2 (06:20→13:58)
[2021-02-21 07:23] LABS: Hematocrit (blood only) 39.3 % (42-52); Hemoglobin 12.3 g/dL (14.0-18.0); Mean Corpuscular Hemoglobin 26.1 pg (25-34); Mean Corpuscular Hgb Conc 31.3 g/dL (32-36); Mean Corpuscular Volume 83.3 fL (80-100); Mean Platelet Volume 9.4 fL (7.4-10.4); Platelet Count 197 K/uL (130-400); RDW Coefficient of Variation 15.8 % (11.5-14.5); RDW Standard Deviation 48.4 fL (36.4-46.3); Red Blood Count 4.72 M/uL (4.7-6.1); White Blood Count 12.83 K/uL (4.8-10.8)
[2021-02-21 07:52] LABS: BUN Creatinine Ratio 12.7 (10-20); Calcium 8.7 mg/dl (8.5-10.1); Est GFR (African American) 59.1 ml/min; Potassium 4.2 mmol/L (3.5-5.1)
[2021-02-21] MEDS: ASPIRIN 81 MG ECTAB PO SCH (08:00)
[2021-02-21] MEDS: ATORVASTATIN 40 MG TAB PO SCH (08:00)
[2021-02-21] MEDS: buPROPion SR 150 MG TABCR PO SCH (08:00)
[2021-02-21] MEDS ORDERED: Nursing to Pharmacy Communication SCH (12:00)
[2021-02-21] MEDS ORDERED: levoFLOXacin 500 MG TAB PO ONE (12:30)
--- NOTE | 2021-02-21 15:57 | Discharge Summary ---
Date of Service date of admission - February 19, 2021 date of discharge - February 21, 2021 Admission HPI Per Admitting Provider This is a 65-year-old male with past medical history of prediabetes and BPH that presents today complaining of right scrotal pain. Patient tells me has been having some mild pain in that area for the past week. He is noted worsening swelling and erythema as well. The pain is mostly localized to the testicle, scrotum, and immediate groin without any radiation. Does not have any flank pain. He has been having fevers at home over the past 48 hours. This continue to be worse which is what prompted him to come to the emergency room. He did have some tachycardia and hypotension but seems responding well to fluids. Scrotal ultrasound shows epididymoorchitis on the right and the patient is now being placed in observation for further monitoring and treatment of this. Principal Diagnosis Epididymoorchitis Discharge Exam Gen: morbidly obese, NAD Mouth: MMM Heart: RRR, s1 s2, no murmur lungs: CTA b/l Abd: soft NT ND BS+ : severe scrotal edema, mainly on right; right testicular and epididymal swelling but no tenderness Ext: <1+ edema b/l, pulses 2+ b/l Discharge Data Allergies Allergy/AdvReac Type Severity Reaction Status Date / Time No Known Drug Allergies Allergy Verified 02/25/21 14:31 Consultations [facility] Ordered Studies Chest X-Ray 02/19/21 12:04 XR chest 1V portable CLINICAL HISTORY: Fever COMPARISON STUDY: 09/23/2017 FINDINGS: The heart is enlarged. The patient is hyperinflated. Indistinctness of the cardiac phrenic angles, likely secondary to prominent fat pads. There is no failure. There is no lobar consolidation.[ IMPRESSION: 1. Prominent cardiophrenic angle fat pads. No evidence of focal pulmonary consolidation ACT 112: Negative or not required by law. Electronically signed by: Vishnu Maza M.D. 02/19/2021 12:52 PM Scrotum Ultrasound 02/19/21 12:11 ULTRASOUND TESTES AND SCROTUM CLINICAL HISTORY: Right testicular pain and swelling. COMPARISON STUDY: No priors. TECHNIQUE: Real-time, grayscale, and color Doppler sonography of the testes and scrotum is performed. Images are reviewed in the transverse and longitudinal planes. FINDINGS: The testes are normal in size and homogeneous in echotexture. The right testis measures 5.5 x 3.2 x 3.4 cm and the left testis measures 4.7 x 2.8 x 4.0 cm. No intratesticular mass is seen. The right testis is hyperemic as compared to the left. Normal Doppler waveforms are identified in both testes. The right epididymis appears hyperemic. The right epididymal head measures 1.3 cm in length and the left epididymal head measures 1.2 cm in length. There is a moderate and mildly complex/septated right-sided hydrocele. There is trace left-sided hydrocele. No varicocele is seen. IMPRESSION: 1. Findings suggest right-sided epididymoorchitis. Clinical correlation will be required. 2. There is a moderate and minimally complex/septated right-sided hydrocele. 3. Trace hydrocele is seen on the left. ACT 112: Negative or not required by law. Electronically signed by: Ashok Marquez M.D. 02/19/2021 1:31 PM Hospital Course (1) Epididymoorchitis: Patient's right-sided epididymoorchitis improved clinically with IV levaquin. He was seen in consult by [facility] who advised antibiotics, scrotal support, and follow-up in the [facility] office post-discharge. Blood and urine cultures were negative. WBC count normalized and the patient clinically improved on IV levaquin; thus, he was sent home with 7 additional days of oral levaquin. (2) Severe obstructive sleep apnea: Cont CPAP. I recommended he have an overnight oximetry study at his home to determine if he needs blended oxygen with his CPAP. (3) BPH (benign prostatic hyperplasia): Continue Flomax no LUTS (4) Hypertension: Controlled during his stay (5) Hypercholesterolemia: Cont Atorvastatin 40 mg daily (6) Stage III chronic kidney disease: Cr at baseline during the hospital stay. Discharge Cr level was 1.4. (7) Morbid obesity with BMI of 45.0-49.9, adult: BMI 49 (8) COPD (chronic obstructive pulmonary disease): No exacerbation while here. 2-step ambulatory O2 test did NOT show need for home O2. Patient was strongly advised to obtain a COVID vaccination post-discharge in light of his numerous medical problems. Total Time Total Time Spent Total Time Spent (In Minutes): 40 Discharge Plan Discharge Items Patient Disposition: Home - Self-Care Reason For Visit: EPIDIDYMO-ORCHITIS Discharge Diagnosis: Epididymo-orchitis on right (bacterial infection of the testicle and another structure adjacent to the testicle) -- improving Condition on Discharge: Good Activity: As commented below Activity Comment: for the next 4-5 days light activities, then gradually increase activity Lifting: No more than 25 pounds Driving/Machine Use: Resume 1 day after discharge Non-emergency contact: Primary Care Provider and Urologist Call non-emergency contact if: you have any medication questions, your symptoms worsen, your pain is not controlled, your pain is worsening and you have a fever Follow-up/Referrals: Hay Willis MD [Physician] - (OFFICE WILL CALL YOU WITH APPOINTMENT) Tracy David DO [Primary Care Provider] - 03/11/21 9:20 am (1 week ) Diet: Heart Healthy Addtl Attending Provider Instructions: Brayan Feldman were admitted to the hospital for right-sided epididymitis and orchitis. This is a bacterial infection of the epididymis (a small structure that sits atop the testicle) and the actual testicle itself. You improved with IV antibiotics and time. You will need 7 more days of oral antibiotic - levofloxacin - starting tomorrow, 02/22/21. Take a probiotic supplement for 10 days - you can start this today. This may help prevent diarrhea from the antibiotics. In addition, the following often help with pain & swelling - 1. use a bag of frozen peas or something similar - apply to the scrotum a few times a day for 20 minutes; do not place directly onto the scrotum; place a towel around the frozen item and then apply it. This will help with pain and swelling. 2. scrotal support/elevation - avoid boxer shorts. Use briefs or similar to provide support to the scrotum. 3. tylenol [id number] -- 1000mg every 8 hours as needed, max 3000mg in 24 hours Resume your other chronic medications as previous. We did an ambulatory oxygen test and at this time you do not need oxygen at your home. However, please speak to Dr David about obtaining an "overnight oximetry study" to see if you need oxygen blended in with your CPAP while you sleep. When you have recovered from this infection please go & obtain a COVID vaccination. You are at high risk of COVID because of your COPD and other conditions. Follow-up - see separate section Return to [facility] if - * you have fever over 100 degrees * you have severe diarrhea * you have worsening scrotal pain or swelling despite the above measures * any other concerns Continue to feel better! Dr Ortega Pending Studies at Discharge: Yes Studies:: blood and urine cultures but both thus far negative Stand-Alone Forms: My [facility], Smoking Cessation Medications and DC Order Prescriptions: Continued aspirin 81 mg tablet,delayed release (DR/EC) 81 mg PO QAM RF: 0 bupropion HCl 150 mg tablet sustained-release 12 hr See Rx Instructions .ROUTE .COMPLEX Qty: 60 RF: 5 atorvastatin [Lipitor] 40 mg tablet 40 mg PO QAM Qty: 90 RF: 3 furosemide 40 mg tablet 40 mg PO QAM Qty: 90 RF: 3 tamsulosin 0.4 mg capsule 0.4 mg PO HS 90 Days Qty: 90 RF: 3 No Action trimethoprim 100 mg tablet 100 mg PO DAILY 30 Days Qty: 30 RF: 2 Discharge Orders: Discharge Order (Routine); Ordered 02/21/21 Ordered By: Cb Best/Other Patient Handouts: Treating Epididymitis and Orchitis, What are Epididymitis and Orchitis? Admission Data Admit Date/Time: 02/19/21 15:33 Attending Provider: Cb Ortega Admit Provider: Kareem Lim Primary Care Provider: Tracy David Other Providers: Hay Willis Other Interventions: Discharge Summary Assessment (RN) Last Done: 02/21/21 15:54 Coding Level of Care Code D/C DAY MANAGEMENT >30 MINS Diagnoses Epididymoorchitis N45.3 Severe obstructive sleep apnea G47.33 BPH (benign prostatic hyperplasia) N40.0 Hypertension I10 Hypercholesterolemia E78.00 Stage III chronic kidney disease N18.3 Morbid obesity with BMI of 45.0-49.9, adult E66.01; Z68.42 COPD (chronic obstructive pulmonary disease) J44.9
[2021-02-22] MEDS ORDERED: levoFLOXacin 500 MG TAB PO SCH (11:00)
== END 2021-02-21 17:47 | disposition home or self-care (01) | DRG 728 ==
LOC: ED 11:02 → SUATTDRO 15:33 → 2S 15:33
DX: I12.9 Hypertensive chronic kidney disease with stage 1 through stage 4 chronic kidney disease, or unspecified chronic kidney disease; N45.3 Epididymo-orchitis; N40.0 Benign prostatic hyperplasia without lower urinary tract symptoms; G47.33 Obstructive sleep apnea (adult) (pediatric); E66.01 Morbid (severe) obesity due to excess calories; Z87.891 Personal history of nicotine dependence; J44.9 Chronic obstructive pulmonary disease, unspecified; Z79.82 Long term (current) use of aspirin; N18.30 Chronic kidney disease, stage 3 unspecified; E78.00 Pure hypercholesterolemia, unspecified; Z68.42 Body mass index [BMI] 45.0-49.9, adult

== ENCOUNTER 2023-11-29 18:32 | Inpatient (IN) ==
--- NOTE | 2023-11-29 19:19 | Emergency Department Note ---
Impression & Plan Right sided abdominal pain, Acute appendicitis, Leukocytosis ED Provider Note NAME: AD ESCOBEDO AGE: 68 SEX: M : 1955 ARRIVES VIA: Walk-In INFORMANT: [Patient] ED PROVIDER(S): [Ashok Vasques MD] CHIEF COMPLAINT: Urinary symptoms HISTORY OF PRESENT ILLNESS: The patient is a 68-year-old male whose had 3, maybe 4 days of some right-sided abdominal pain and right flank pain. He has developed some chills and a likely a fever. He has not noticed some burning to urinate. He feels he may have a urinary infection as he has had a UTI previously. The patient also admits to a slight cough. No shortness of breath. He has had nausea but no vomiting. No diarrhea. PMHx/PSHx/Social Hx: See Below PHYSICAL EXAM: GENERAL: Patient is in no acute distress. HEENT: No acute trauma, normocephalic atraumatic, mucous membranes moist, no nasal congestion. NECK: No stridor, no adenopathy, no meningismus, trachea is midline. LUNGS: Clear to auscultation bilaterally, no wheeze, no rhonchi, breath sounds equal. Dry cough noted. HEART: Without murmurs gallops or rubs, mildly tachycardic, regular rhythm. ABDOMEN: Soft, tender along the entire right side of the abdomen, obese. His pain does seem to worsen with coughing. EXTREMITIES: No cyanosis, full range of motion of all the joints without pain or difficulty. NEUROLOGIC: Oriented x 3, no acute motor or sensory deficits, no focal weakness. SKIN: No jaundice, no diaphoresis. DIFFERENTIAL DIAGNOSIS: UTI, pyelonephritis, urinary obstruction, appendicitis, diverticulitis, renal colic, sepsis or bacteremia, electrolyte imbalance, viral illness, among others. EMERGENCY DEPARTMENT PROCEDURES: MEDICAL DECISION MAKING: There is a leukocytosis at 17,000, this certainly could be consistent with infection. There was a normal hemoglobin and platelet count. Potassium was slightly low at 3.4. There was some renal insufficiency seen, the renal insufficiency appears baseline looking back at previous testing. Lactic acid level was not elevated making severe sepsis less likely. There was no concerning liver enzyme elevation. No evidence for pancreatitis. Urinalysis showed potential infection with 50 white blood cells although, no bacteria was seen. Respiratory bio fire was completely negative. Chest x-ray did not show pneumonia or free air. Abdominal and pelvis CT shows a very dilated appendix with a potential small abscess. No ureteral stone. Chronic left-sided hydronephrosis seen. No bowel obstruction. On exam, the patient was tender along the right side of the abdomen, his pain worsened with coughing. The patient received IV cefepime as empiric antibiotic coverage. He received 1.5 L of IV saline. He was given IV Toradol for pain. He received IV Tylenol for pain. I spoke to the patient about his findings. I did speak with case management. I did speak with the on-call general surgeon. The patient is being seen by surgery. I suspect he will have surgical intervention. I do believe the the finding of appendicitis explains his presentation. Prior/Outside records/notes reviewed: None Imaging/x-ray results per my interpretation: Chest x-ray shows some chronic widening of the mediastinum. I see no pneumonia or free air. Chronic Medical/Social conditions affecting care: Care/Management discussed with: Case management, the on-call surgeon-Dr. Mendiola. Level of care consideration(s): After review of the information above and other included data: --I believe the patient requires escalation of care to admission Critical Care Note: I have personally spent 42 minutes of critical care time in the direct management of this patient. This includes bedside care, interpretation of diagnostic studies, and testing, discussion with consultants, patient, and family members, and other required patient management activities. This 42 minutes is in excess of all separately billable procedures. DISPOSITION: Admission with surgical intervention. Past Med/Surg History Medical History Encounter for pre-operative examination Morbid obesity with BMI of 45.0-49.9, adult Epididymoorchitis Severe obstructive sleep apnea Prediabetes BPH (benign prostatic hyperplasia) Lymphedema COPD (chronic obstructive pulmonary disease) Degenerative disc disease Depression with anxiety Erectile dysfunction Hypercholesterolemia Hypertension Lumbar disc disease Lumbar radiculopathy Morbid obesity Neurogenic bladder Polymyalgia rheumatica Proteinuria Stage III chronic kidney disease Urinary retention Vitamin D deficiency History of anesthesia reaction after ankle sx had "a really bad headache" Kidney stones Surgical History H/O umbilical hernia repair History of open reduction and internal fixation (ORIF) procedure left ankle--hardware in place History of wisdom tooth extraction H/O transurethral resection of prostate H/O cystoscopy History of ankle surgery Family History Daughter Family history of reaction to anesthesia difficulty waking Father Diabetes Hypertension Mother Diabetes Hypertension Arthritis Sister Family history of diabetes mellitus Uncle Colorectal cancer Maternal uncle. Denies family history of Ovarian cancer Prostate cancer Myocardial infarction Breast cancer Social History Smoking Status: Current some day smoker Tobacco Type: Cigarettes and Smokeless Tobacco (Dip or Chew) packs per day: 1; Cigarettes Per Day: Used to smoke cigarettes; Second Hand Exposure: Yes (parents smoked); Do You Dip or Chew Tobacco: Yes; Hx Alcohol Use: Yes Alcohol type: beer and wine Alcohol Intake Frequency: 2-4 x/Month Hx Substance Use: No Preferred Language: Divehi Communication Ability: Effective Visual Impairment: No Limitations Hearing Ability: Normal Trimmer Helper Required: No Beliefs That Will Affect Care: None marital status: Single Current Living Situation: Alone current occupational status: disabled How many Children do You have: 4 Feels Safe at Home: Yes Childhood Exposure to Second-Hand Smoke: Yes Diet: regular Diet Comment: regular caffeine: Yes (1 CUP COFFEE DAILY) during the past year weight has: remained stable Dental Care, Regularly: No Physical Activity Frequency: 1-2 Times per Week Seatbelt Use: always Sunscreen Use: No Do you think of yourself as: straight/heterosexual Gender Identity: Male Assistive Devices: Glasses Allergies Allergies Allergy/AdvReac Type Severity Reaction Status Date / Time No Known Drug Allergies Allergy 0 Verified 10/18/23 15:28 Home Meds Home Medications Medication Instructions Recorded Confirmed aspirin 81 mg tablet,delayed 81 mg PO QAM 08/30/18 11/29/23 release Previous Rx's Medication Instructions Recorded tamsulosin 0.4 mg capsule 0.4 mg PO HS 90 days #90 caps 05/16/23 furosemide 40 mg tablet 40 mg PO QAM #90 tabs 08/05/23 atorvastatin 40 mg tablet (Lipitor) 40 mg PO QAM #90 tabs 11/01/23 docusate sodium 100 mg capsule 100 mg PO BID #60 caps 11/15/23 (Colace) Results & Data (ED) Vital Signs Vital Signs - 24 hr 11/29/23 18:40 11/29/23 18:54 11/29/23 18:59 Temperature 36.6 C 36.9 C Temperature Source Skin Oral Pulse Rate 114 H 110 H Pulse Rate [Apical] Pulse Strength [Apical] Respiratory Rate 18 Respiratory Effort / Characteristics Respiratory Depth Respiratory Pattern Blood Pressure 160/91 H Blood Pressure [Right Arm] Blood Pressure Mean 114 Blood Pressure Mean [Right Arm] Pulse Oximetry 90 Oxygen Delivery Method Room Air Oxygen Flow Rate Sepsis Recent Fever Within 48 Hours Yes Sepsis New/Unexplained Change in Mental Status No Sepsis Action Taken by Nursing No Action Required 11/29/23 19:14 11/29/23 21:06 11/29/23 22:15 Temperature Temperature Source Pulse Rate Pulse Rate [Apical] 112 H 98 H 91 H Pulse Strength [Apical] Normal Normal Respiratory Rate 17 18 18 Respiratory Effort / Characteristics Non-Labored Spontaneous Non-Labored Spontaneous Non-Labored Spontaneous Respiratory Depth Normal Normal Normal Respiratory Pattern Regular Regular Regular Blood Pressure Blood Pressure [Right Arm] 122/89 121/56 L 96/78 L Blood Pressure Mean Blood Pressure Mean [Right Arm] 100 77 84 Pulse Oximetry 92 98 98 Oxygen Delivery Method Room Air Room Air Nasal Cannula Oxygen Flow Rate 2 Sepsis Recent Fever Within 48 Hours Sepsis New/Unexplained Change in Mental Status Sepsis Action Taken by Detention Medications Current Medication List: was personally reviewed by me Laboratory Data Attestation: I reviewed the patient's lab results. 11/29/23 19:51 11/29/23 19:51 Lab Results 11/29/23 11/29/23 Range/Units 19:51 Unknown WBC 17.59 H (4.8-10.8) K/ul RBC 5.58 (4.70-6.10) M/uL Hgb 14.0 (14.0-18.0) g/dl Hct 44.2 (42.0-52.0) % MCV 79.2 L (80.0-100.0) fL MCH 25.1 (25.0-34.0) pg MCHC 31.7 L (32.0-36.0) g/dL RDW Std Deviation 46.0 (36.4-46.3) fL RDW Coeff of Thea 16.2 H (11.5-14.5) % Plt Count 208 (130-400) K/uL MPV 10.1 (9.4-12.4) fL Immature Gran % (Auto) 0.8 % Neut % (Auto) 84.2 % Lymph % (Auto) 8.6 % Emanuel % (Auto) 5.8 % Eos % (Auto) 0.4 % Baso % (Auto) 0.2 % Neut # (Auto) 14.81 H (1.40-6.50) K/uL Lymph # (Auto) 1.51 (1.20-3.40) K/uL Emanuel # (Auto) 1.02 H (0.11-0.59) K/uL Eos # (Auto) 0.07 (0.00-0.50) K/uL Baso # (Auto) 0.04 (0.00-0.20) K/uL Immature Gran # (Auto) 0.14 (0.01-0.20) K/uL Sodium 138 (136-145) mmol/L Potassium 3.4 L (3.5-5.1) mmol/L Chloride 100 (98-107) mmol/L Carbon Dioxide 29 (21-32) mmol/L Anion Gap 9 (3-11) BUN 24 H (6-23) mg/dl Creatinine 1.47 H (0.6-1.4) mg/dl Est Cr Clr Drug Dosing 71.5 ml/min Est GFR ( Amer) 56.4 ml/min Est GFR (Non-Af Amer) 48.7 ml/min BUN/Creatinine Ratio 16.3 (10-20) Glucose 111 H (70-99(Fasting)) mg/dl Lactate 1.1 (0.4-2.0) mmol/L Calcium 9.3 (8.6-10.3) mg/dl Total Bilirubin 0.8 (0.2-1.0) mg/dl AST 17 (13-39) U/L ALT 15 (7-52) U/L Alkaline Phosphatase 75 (34-104) U/L Total Protein 7.2 (6.0-8.3) gm/dl Albumin 3.4 (3.4-5.0) gm/dl Globulin 3.8 (2.5-4.0) gm/dl Albumin/Globulin Ratio 0.9 (0.9-2) Lipase 6 L (11-82) U/L Urine Color Yellow Urine Appearance Cloudy A (Clear) Urine pH 5.5 (4.5-7.5) Ur Specific Graham 1.016 (1.000-1.030) Urine Protein 1+ H (Negative) Urine Glucose (UA) Negative (Negative) Urine Ketones Negative (Negative) Urine Blood Negative (Negative) Urine Nitrite Negative (Negative) Urine Bilirubin Negative (Negative) Urine Urobilinogen Negative (Negative) Ur Leukocyte Esterase 2+ H (Negative) Urine WBC (Auto) >50 H (0-5) /hpf Urine RBC (Auto) 0-2 (0-2) /hpf U Hyaline Cast (Auto) 0-2 (0-2) /lpf U Epithel Cells (Auto) 0-2 (0-2) /hpf Urine Bacteria (Auto) None Seen (None Seen) Adenovirus (PCR) Not Detected (NotDetected) B. pertussis DNA (PCR) Not Detected (NotDetected) B.parapertussis DNA PCR Not Detected (NotDetected) C. pneumoniae DNA (PCR) Not Detected (NotDetected) Coronavirus OC43 (PCR) Not Detected (NotDetected) Coronavirus HKU1 (PCR) Not Detected (NotDetected) Coronavirus 229E (PCR) Not Detected (NotDetected) SARS-CoV-2 (PCR) Not Detected (NotDetected) Coronavirus NL63 (PCR) Not Detected (NotDetected) Human Metapneumovir PCR Not Detected (NotDetected) Influenza Type A (PCR) Not Detected (NotDetected) Influenza Type B (PCR) Not Detected (NotDetected) M. pneumoniae (PCR) Not Detected (NotDetected) Parainfluenza 1 (PCR) Not Detected (NotDetected) Parainfluenza 2 (PCR) Not Detected (NotDetected) Parainfluenza 3 (PCR) Not Detected (NotDetected) Parainfluenza 4 (PCR) Not Detected (NotDetected) RSV (PCR) Not Detected (NotDetected) Entero/Rhino (PCR) Not Detected (NotDetected) Administered Medications Discontinued Medications Sodium Chloride (Nss) 500 mls @ 999 mls/hr IV .Q31M STA Stop: 11/29/23 19:21 Last Infusion: 11/29/23 21:58 Dose: Infused Documented By: Admin: 11/29/23 21:05 Dose: 999 mls/hr Documented By: RETA Sodium Chloride (Nss) 1,000 mls @ 999 mls/hr IV .Q1H1M ONE Stop: 11/29/23 20:13 Last Infusion: 11/29/23 21:03 Dose: Infused Documented By: Admin: 11/29/23 19:56 Dose: 999 mls/hr Documented By: RETA Cefepime HCl (Maxipime) 2,000 mg in 20 mls @ 5 mls/min IV NOW STA; Protocol Stop: 11/29/23 19:16 Last Admin: 11/29/23 19:58 Dose: 5 mls/min Documented By: RETA Acetaminophen (Ofirmev) 1,000 mg in 100 mls @ 400 mls/hr IV NOW STA Stop: 11/29/23 19:27 Last Infusion: 11/29/23 21:02 Dose: Infused Documented By: Admin: 11/29/23 20:00 Dose: 400 mls/hr Documented By: RETA Ketorolac Tromethamine (Ketorolac Tromethamine 15 Mg/Ml Vial) 10 mg IV NOW ONE Stop: 11/29/23 19:14 Last Admin: 11/29/23 19:56 Dose: 10 mg Documented By: RETA Imaging Data Radiologist's Impression: Abdomen/Pelvis CT 11/29/23 18:51 CR Exam(s): CT ABDOMEN + PELVIS Without Contrast EXAM: CT Abdomen and Pelvis Without Intravenous Contrast CLINICAL HISTORY: Reason for exam: flank pain. TECHNIQUE: Axial computed tomography images of the abdomen and pelvis without intravenous contrast. CTDI is 28.14 mGy and DLP is 1359.11 mGy-cm. Automated exposure control was utilized for the study. A dose lowering technique was utilized adhering to the principles of ALARA. COMPARISON: 09/18/23 FINDINGS: Lung bases: Bibasilar subsegmental atelectasis. ABDOMEN: Liver: Hepatomegaly and steatosis. Gallbladder and bile ducts: Gallbladder sludge. No calcified stones. No biliary dilatation. Pancreas: Unremarkable. No ductal dilation. Spleen: Mild splenomegaly. Adrenals: Unremarkable. No mass. Kidneys and ureters: Stable severe atrophy of the left kidney with chronic severe hydroureteronephrosis. Mild right-sided hydroureteronephrosis without obstructing radiopaque stone. There are 2 nonobstructing right kidney stones, largest 4 mm. Stomach and bowel: Unremarkable. No obstruction. No mucosal thickening. PELVIS: Appendix: Dilated, fluid-filled, inflamed appendix measuring up to 17 mm in diameter. At the appendix tip, there is a fluid-filled structure measuring up to 30 mm. It is unclear if this represents a dilated appendix tip or a periappendiceal fluid collection/abscess. Bladder: Urinary bladder appears unremarkable. No stones. Reproductive: Prostate is not enlarged. ABDOMEN and PELVIS: Intraperitoneal space: Fat stranding in the right lower quadrant. Trace ascites. No free air. Bones/joints: Lumbar spondylosis. No acute fracture or dislocation. Soft tissues: Unremarkable. Vasculature: Atherosclerosis. No aortic aneurysm. Lymph nodes: Unremarkable. No enlarged lymph nodes. IMPRESSION: 1. Dilated, fluid-filled, inflamed appendix measuring up to 17 mm in diameter, consistent with appendicitis. At the appendix tip, there is a fluid-filled structure measuring up to 30 mm (axial 52, coronal 46, sagittal 16). It is unclear if this represents a dilated appendix tip or a periappendiceal fluid collection/abscess. 2. Stable severe atrophy of the left kidney with chronic severe hydroureteronephrosis. 3. Mild right-sided hydroureteronephrosis without obstructing radiopaque stone. There are 2 nonobstructing right kidney stones, largest 4 mm. Communications: Call Doctor Other Electronically signed by: Arron Friend M.D. 11/29/23 21:12 PM Discharge Plan Visit Data Chief Complaint: Urinary Symptoms Stated Complaint: UTI, PAIN ED Provider: Ashok Vasques Discharge Problem: Right sided abdominal pain, Acute appendicitis, Leukocytosis Patient Disposition: Admitted As Inpatient Condition: Fair Forms Stand Alone Forms: [facility] [employer] Prescriptions Prescriptions: No Action aspirin 81 mg tablet,delayed release (DR/EC) 81 mg PO QAM tamsulosin 0.4 mg capsule 0.4 mg PO HS 90 Days Qty: 90 3RF furosemide 40 mg tablet 40 mg PO QAM Qty: 90 3RF atorvastatin [Lipitor] 40 mg tablet 40 mg PO QAM Qty: 90 3RF docusate sodium [Colace] 100 mg capsule 100 mg PO BID Qty: 60 5RF Referrals Referrals: Tracy David DO [Primary Care Provider] - Discharge Problem: Acute appendicitis Qualifiers: Acute appendicitis type: unspecified acute appendicitis type Qualified Code(s): K35.80 - Unspecified acute appendicitis Leukocytosis Qualifiers: Leukocytosis type: unspecified Qualified Code(s): D72.829 - Elevated white blood cell count, unspecified
[2023-11-29] MEDS: SODIUM CHLORIDE 0.9% 1,000 ML IV ONE (19:56)
[2023-11-29] MEDS: KETOROLAC TROMETHAMINE 15 MG/ML VIAL IV ONE (19:56)
[2023-11-29] MEDS: CEFEPIME 2,000 MG/20 ML VIAL IV STA (19:58)
[2023-11-29] MEDS: ACETAMINOPHEN 1,000 MG/100 ML VIAL IV STA (20:00)
[2023-11-29 20:26] LABS: Basophils # (auto) 0.04 K/uL (0.00-0.20); Basophils % (auto) 0.2 %; Eosinophils # (auto) 0.07 K/uL (0.00-0.50); Eosinophils % (auto) 0.4 %; Hematocrit (blood only) 44.2 % (42.0-52.0); Immature Granulocytes # (auto) 0.14 K/uL (0.01-0.20); Immature Granulocytes % (auto) 0.8 %; Lymphocytes # (auto) 1.51 K/uL (1.20-3.40); Lymphocytes % (auto) 8.6 %; Mean Corpuscular Hemoglobin 25.1 pg (25.0-34.0); Mean Corpuscular Hgb Conc 31.7 g/dL (32.0-36.0); Mean Corpuscular Volume 79.2 fL (80.0-100.0); Mean Platelet Volume 10.1 fL (9.4-12.4); Monocytes # (auto) 1.02 K/uL (0.11-0.59); Monocytes % (auto) 5.8 %; Neutrophils # (auto) 14.81 K/uL (1.40-6.50); Neutrophils % (auto) 84.2 %; Platelet Count 208 K/uL (130-400); RDW Coefficient of Variation 16.2 % (11.5-14.5); Red Blood Count 5.58 M/uL (4.70-6.10); White Blood Count 17.59 K/ul (4.8-10.8)
[2023-11-29 20:43] LABS: Albumin Globulin Ratio 0.9 (0.9-2); Albumin Level 3.4 gm/dl (3.4-5.0); BUN Creatinine Ratio 16.3 (10-20); Bilirubin,Total 0.8 mg/dl (0.2-1.0); Calcium 9.3 mg/dl (8.6-10.3); Creatinine Clr Calc Pharmacy 71.5 ml/min; Est GFR (African American) 56.4 ml/min; Est GFR (Non-African American) 48.7 ml/min; Globulin 3.8 gm/dl (2.5-4.0); Potassium 3.4 mmol/L (3.5-5.1); Total Protein 7.2 gm/dl (6.0-8.3)
[2023-11-29] MEDS: SODIUM CHLORIDE 0.9% 500 ML IV STA (21:05)
--- NOTE | 2023-11-29 21:14 | CT Scan Report ---
Exam(s): CT ABDOMEN + PELVIS Without Contrast EXAM: CT Abdomen and Pelvis Without Intravenous Contrast CLINICAL HISTORY: Reason for exam: flank pain. TECHNIQUE: Axial computed tomography images of the abdomen and pelvis without intravenous contrast. CTDI is 28.14 mGy and DLP is 1359.11 mGy-cm. Automated exposure control was utilized for the study. A dose lowering technique was utilized adhering to the principles of ALARA. COMPARISON: 09/18/23 FINDINGS: Lung bases: Bibasilar subsegmental atelectasis. ABDOMEN: Liver: Hepatomegaly and steatosis. Gallbladder and bile ducts: Gallbladder sludge. No calcified stones. No biliary dilatation. Pancreas: Unremarkable. No ductal dilation. Spleen: Mild splenomegaly. Adrenals: Unremarkable. No mass. Kidneys and ureters: Stable severe atrophy of the left kidney with chronic severe hydroureteronephrosis. Mild right-sided hydroureteronephrosis without obstructing radiopaque stone. There are 2 nonobstructing right kidney stones, largest 4 mm. Stomach and bowel: Unremarkable. No obstruction. No mucosal thickening. PELVIS: Appendix: Dilated, fluid-filled, inflamed appendix measuring up to 17 mm in diameter. At the appendix tip, there is a fluid-filled structure measuring up to 30 mm. It is unclear if this represents a dilated appendix tip or a periappendiceal fluid collection/abscess. Bladder: Urinary bladder appears unremarkable. No stones. Reproductive: Prostate is not enlarged. ABDOMEN and PELVIS: Intraperitoneal space: Fat stranding in the right lower quadrant. Trace ascites. No free air. Bones/joints: Lumbar spondylosis. No acute fracture or dislocation. Soft tissues: Unremarkable. Vasculature: Atherosclerosis. No aortic aneurysm. Lymph nodes: Unremarkable. No enlarged lymph nodes. IMPRESSION: 1. Dilated, fluid-filled, inflamed appendix measuring up to 17 mm in diameter, consistent with appendicitis. At the appendix tip, there is a fluid-filled structure measuring up to 30 mm (axial 52, coronal 46, sagittal 16). It is unclear if this represents a dilated appendix tip or a periappendiceal fluid collection/abscess. 2. Stable severe atrophy of the left kidney with chronic severe hydroureteronephrosis. 3. Mild right-sided hydroureteronephrosis without obstructing radiopaque stone. There are 2 nonobstructing right kidney stones, largest 4 mm. Communications: Call Doctor Other Electronically signed by: Arron Friend M.D. 11/29/23 21:12 PM
[2023-11-29 21:15] LABS: Appearance Urine Cloudy (Clear); Bacteria Urine Automated None Seen (None Seen); Bilirubin Urine Negative (Negative); Blood Urine Negative (Negative); Cast Urine Automated 0-2 /lpf (0-2); Color Urine Yellow; Epithelial Cell Urine Auto 0-2 /hpf (0-2); Glucose Urine UA Negative (Negative); Ketones Urine Negative (Negative); Leukocyte Esterase Urine 2+ (Negative); Nitrite Urine Negative (Negative); Protein Urine 1+ (Negative); RBC Urine Automated 0-2 /hpf (0-2); Specific Gravity Urine 1.016 (1.000-1.030); Urobilinogen Urine Negative (Negative); WBC Urine Automated >50 /hpf (0-5); pH Urine 5.5 (4.5-7.5)
[2023-11-29 21:45] LABS: Adenovirus PCR Not Detected (NotDetected); Bordetella parapertussis PCR Not Detected (NotDetected); Bordetella pertussis PCR Not Detected (NotDetected); Chlamydia pneumoniae PCR Not Detected (NotDetected); Coronavirus 229E PCR Not Detected (NotDetected); Coronavirus CoV-2 (COVID19)PCR Not Detected (NotDetected); Coronavirus HKU1 PCR Not Detected (NotDetected); Coronavirus NL63 PCR Not Detected (NotDetected); Coronavirus OC43PCR Not Detected (NotDetected); Human Metapneumovirus PCR Not Detected (NotDetected); Influenza A PCR Not Detected (NotDetected); Influenza B PCR Not Detected (NotDetected); Mycoplasma pneumoniae PCR Not Detected (NotDetected); Parainfluenza Virus 1 PCR Not Detected (NotDetected); Parainfluenza Virus 2 PCR Not Detected (NotDetected); Parainfluenza Virus 3 PCR Not Detected (NotDetected); Parainfluenza Virus 4 PCR Not Detected (NotDetected); Respiratory Syncytial VirusPCR Not Detected (NotDetected); Rhinovirus/Enterovirus PCR Not Detected (NotDetected)
[2023-11-29] MEDS ORDERED: MIDAZOLAM HCL 1 MG/ML 2ML VIAL ONE (22:09)
[2023-11-29] MEDS ORDERED: fentaNYL citrate PF 100 MCG/2 ML VIAL ONE (22:09)
[2023-11-29] MEDS ORDERED: PROMETHAZINE HCL 6.25 MG in SODIUM CHLORIDE 0.9% 50 ML IV PRN (22:19)
[2023-11-29] MEDS ORDERED: ONDANSETRON INJ 2 MG/ML 2 ML VIAL IV PRN (22:19)
[2023-11-29] MEDS ORDERED: fentaNYL citrate PF 100 MCG/2 ML VIAL IV PRN (22:19)
[2023-11-29] MEDS ORDERED: HYDROmorphone INJ 1 MG/ML SYRINGE IV PRN (22:19)
[2023-11-29] MEDS ORDERED: ATROPINE SULFATE 0.1 MG/ML 10ML SYR IV PRN (22:19)
[2023-11-29] MEDS ORDERED: ePHEDrine sulfate 50 MG/ML AMP IV PRN (22:19)
--- NOTE | 2023-11-29 22:22 | Anesthesiology Consultation ---
Date of Service November 29, 2023 Assessment & Plan (1) Encounter for pre-operative examination: Chart Review Chart Review: Acceptable Risk for Surgery and Patient NOT seen in Pre Admission Testing Consults Requested none History Surgery Operation Date: 11/29/23 22:00 Proposed Procedures p Laparoscopic Appendectomy - Yogesh Blackwell MD Height/Weight Height: 6 ft Weight: 142.9 kg Allergies Allergy/AdvReac Type Severity Reaction Status Date / Time No Known Drug Allergies Allergy 0 Verified 10/18/23 15:28 Medications Home Medications Medication Instructions Recorded Confirmed Last Taken aspirin 81 mg tablet,delayed 81 mg PO QAM 08/30/18 11/29/23 02/19/21 release tamsulosin 0.4 mg capsule 0.4 mg PO HS 90 days #90 caps 05/16/23 11/29/23 Unknown furosemide 40 mg tablet 40 mg PO QAM #90 tabs 08/05/23 11/29/23 Unknown atorvastatin 40 mg tablet (Lipitor) 40 mg PO QAM #90 tabs 11/01/23 11/29/23 Unknown docusate sodium 100 mg capsule 100 mg PO BID #60 caps 11/15/23 11/29/23 Unknown (Colace) Past Medical History Medical History Encounter for pre-operative examination Morbid obesity with BMI of 45.0-49.9, adult Epididymoorchitis Severe obstructive sleep apnea Prediabetes BPH (benign prostatic hyperplasia) Lymphedema COPD (chronic obstructive pulmonary disease) Degenerative disc disease Depression with anxiety Erectile dysfunction Hypercholesterolemia Hypertension Lumbar disc disease Lumbar radiculopathy Morbid obesity Neurogenic bladder Polymyalgia rheumatica Proteinuria Stage III chronic kidney disease Urinary retention Vitamin D deficiency History of anesthesia reaction after ankle sx had "a really bad headache" Kidney stones Past Family History Family History Daughter Family history of reaction to anesthesia difficulty waking Father Diabetes Hypertension Mother Diabetes Hypertension Arthritis Sister Family history of diabetes mellitus Uncle Colorectal cancer Maternal uncle. Denies family history of Ovarian cancer Prostate cancer Myocardial infarction Breast cancer Past Surgical History Surgical History H/O umbilical hernia repair History of open reduction and internal fixation (ORIF) procedure left ankle--hardware in place History of wisdom tooth extraction H/O transurethral resection of prostate H/O cystoscopy History of ankle surgery Social History Smoking Status: Current some day smoker tobacco type: smokeless tobacco Smoking cigarettes per day: Used to smoke cigarettes Do You Dip or Chew Tobacco: Yes Hx Alcohol Use: Yes Alcohol type: beer and wine alcohol intake frequency: holidays/special occasions only Hx Substance Use: No substance use type: does not use Physical Exam Vital Signs Last Vital Signs Temp 36.9 C 11/29/23 18:59 Pulse 91 H 11/29/23 22:15 Resp 18 11/29/23 22:15 BP 96/78 L 11/29/23 22:15 Pulse Ox 98 11/29/23 22:15 O2 Del Method Nasal Cannula 11/29/23 22:15 O2 Flow Rate 2 11/29/23 22:15 Testing Laboratory Results 11/29/23 19:51 11/29/23 19:51 Urine Color Yellow 11/29/23 Unknown Urine Appearance Cloudy (Clear) A 11/29/23 Unknown Urine pH 5.5 (4.5-7.5) 11/29/23 Unknown Ur Specific [place] 1.016 (1.000-1.030) 11/29/23 Unknown Urine Protein 1+ (Negative) H 11/29/23 Unknown Urine Glucose (UA) Negative (Negative) 11/29/23 Unknown Urine Ketones Negative (Negative) 11/29/23 Unknown Urine Nitrite Negative (Negative) 11/29/23 Unknown Ur Leukocyte Esterase 2+ (Negative) H 11/29/23 Unknown Urine WBC (Auto) >50 /hpf (0-5) H 11/29/23 Unknown Urine RBC (Auto) 0-2 /hpf (0-2) 11/29/23 Unknown U Hyaline Cast (Auto) 0-2 /lpf (0-2) 11/29/23 Unknown U Epithel Cells (Auto) 0-2 /hpf (0-2) 11/29/23 Unknown Urine Bacteria (Auto) None Seen (None Seen) 11/29/23 Unknown Other Testing 11/29/23: ADDENDUM END Exam(s): CT ABDOMEN + PELVIS Without Contrast EXAM: CT Abdomen and Pelvis Without Intravenous Contrast CLINICAL HISTORY: Reason for exam: flank pain. TECHNIQUE: Axial computed tomography images of the abdomen and pelvis without intravenous contrast. CTDI is 28.14 mGy and DLP is 1359.11 mGy-cm. Automated exposure control was utilized for the study. A dose lowering technique was utilized adhering to the principles of ALARA. COMPARISON: 09/18/23 FINDINGS: Lung bases: Bibasilar subsegmental atelectasis. ABDOMEN: Liver: Hepatomegaly and steatosis. Gallbladder and bile ducts: Gallbladder sludge. No calcified stones. No biliary dilatation. Pancreas: Unremarkable. No ductal dilation. Spleen: Mild splenomegaly. Adrenals: Unremarkable. No mass. Kidneys and ureters: Stable severe atrophy of the left kidney with chronic severe hydroureteronephrosis. Mild right-sided hydroureteronephrosis without obstructing radiopaque stone. There are 2 nonobstructing right kidney stones, largest 4 mm. Stomach and bowel: Unremarkable. No obstruction. No mucosal thickening. PELVIS: Appendix: Dilated, fluid-filled, inflamed appendix measuring up to 17 mm in diameter. At the appendix tip, there is a fluid-filled structure measuring up to 30 mm. It is unclear if this represents a dilated appendix tip or a periappendiceal fluid collection/abscess. Bladder: Urinary bladder appears unremarkable. No stones. Reproductive: Prostate is not enlarged. ABDOMEN and PELVIS: Intraperitoneal space: Fat stranding in the right lower quadrant. Trace ascites. No free air. Bones/joints: Lumbar spondylosis. No acute fracture or dislocation. Soft tissues: Unremarkable. Vasculature: Atherosclerosis. No aortic aneurysm. Lymph nodes: Unremarkable. No enlarged lymph nodes. IMPRESSION: 1. Dilated, fluid-filled, inflamed appendix measuring up to 17 mm in diameter, consistent with appendicitis. At the appendix tip, there is a fluid-filled structure measuring up to 30 mm (axial 52, coronal 46, sagittal 16). It is unclear if this represents a dilated appendix tip or a periappendiceal fluid collection/abscess. 2. Stable severe atrophy of the left kidney with chronic severe hydroureteronephrosis. 3. Mild right-sided hydroureteronephrosis without obstructing radiopaque stone. There are 2 nonobstructing right kidney stones, largest 4 mm.
[2023-11-29] MEDS ORDERED: ALBUMIN HUMAN 5% 12.5 GM/250 ML VIAL IV ONE (22:25)
--- NOTE | 2023-11-29 22:28 | History & Physical Report ---
Date of Service November 29, 2023 Assessment & Plan (1) Acute appendicitis: Plan: IV abx IVF to OR for lap appendectomy Acute appendicitis type: unspecified acute appendicitis type Q ualified Code(s): K35.80 - Unspecified acute appendicitis History of Present Illness Primary Care Provider: Tracy David DO This is a 68YO with right-sided abdominal pain for three days. He has history of multiple UTIs. He has associated chills and a likely a fever. He has dysuria. CT scan was done which shows an acute appendicitis. Allergies Allergy/AdvReac Type Severity Reaction Status Date / Time No Known Drug Allergies Allergy 0 Verified 10/18/23 15:28 Home Medications Medication Instructions Recorded Confirmed Type aspirin 81 mg tablet,delayed 81 mg PO QAM 08/30/18 11/29/23 History release tamsulosin 0.4 mg capsule 0.4 mg PO HS 90 days #90 caps 05/16/23 11/29/23 Rx furosemide 40 mg tablet 40 mg PO QAM #90 tabs 08/05/23 11/29/23 Rx atorvastatin 40 mg tablet (Lipitor) 40 mg PO QAM #90 tabs 11/01/23 11/29/23 Rx docusate sodium 100 mg capsule 100 mg PO BID #60 caps 11/15/23 11/29/23 Rx (Colace) Past Med/Surg History Medical History (Updated 11/29/23 @ 22:26 by Ashok Vasques MD) Encounter for pre-operative examination Morbid obesity with BMI of 45.0-49.9, adult Epididymoorchitis Severe obstructive sleep apnea Prediabetes BPH (benign prostatic hyperplasia) Lymphedema COPD (chronic obstructive pulmonary disease) Degenerative disc disease Depression with anxiety Erectile dysfunction Hypercholesterolemia Hypertension Lumbar disc disease Lumbar radiculopathy Morbid obesity Neurogenic bladder Polymyalgia rheumatica Proteinuria Stage III chronic kidney disease Urinary retention Vitamin D deficiency History of anesthesia reaction after ankle sx had "a really bad headache" Kidney stones Surgical History H/O umbilical hernia repair History of open reduction and internal fixation (ORIF) procedure left ankle--hardware in place History of wisdom tooth extraction H/O transurethral resection of prostate H/O cystoscopy History of ankle surgery Family History Daughter Family history of reaction to anesthesia difficulty waking Father Diabetes Hypertension Mother Diabetes Hypertension Arthritis Sister Family history of diabetes mellitus Uncle Colorectal cancer Maternal uncle. 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 Required: No Beliefs That Will Affect Care: None marital status: Single Current Living Situation: Alone current occupational status: disabled How many Children do You have: 4 Feels Safe at Home: Yes Childhood Exposure to Second-Hand Smoke: Yes Diet: regular Diet Comment: regular caffeine: Yes (1 CUP COFFEE DAILY) during the past year weight has: remained stable Dental Care, Regularly: No Physical Activity Frequency: 1-2 Times per Week Seatbelt Use: always Sunscreen Use: No Do you think of yourself as: straight/heterosexual Gender Identity: Male Assistive Devices: Glasses Review of Systems + fever, + chills and + anorexia no problem reported no problem reported no cough and no dyspnea no chest pain + abdominal pain and + nausea; no vomiting and no change in bowel habits + dysuria + back pain no problem reported no localized weakness and no generalized weakness no behavioral changes no easy bleeding and no easy bruising Physical Exam Constitutional: WD/WN, vitals as above Eyes: PERRL, conjunctivae normal, anicteric sclerae ENMT: external ear and nose normal, oropharynx normal Respiratory: normal respiratory effort, lungs clear to auscultation Cardiovascular: RRR, no murmur, no edema Gastrointestinal (Abdomen): Inspection/Auscultation: abdomen normal to inspection and normal bowel sounds; abdomen not distended Percussion/Palpation: + abdomen tender, + guarding and abdomen soft; abdomen not rigid Musculoskeletal: Head/Neck/Chest: normocephalic and head atraumatic Skin: no rashes, warm and dry ASA Classification ASA ASA2E Results & Data Vital Signs (Past 12 Hours) Vital Signs Temp Pulse Pulse Resp BP BP Pulse Ox 11/29/23 22:15 91 H 18 96/78 L 98 11/29/23 21:06 98 H 18 121/56 L 98 11/29/23 19:14 112 H 17 122/89 92 11/29/23 18:59 36.9 C 11/29/23 18:54 110 H 11/29/23 18:40 36.6 C 114 H 18 160/91 H 90 O2 Del Method O2 Flow Rate 11/29/23 22:15 Nasal Cannula 2 11/29/23 21:06 Room Air 11/29/23 19:14 Room Air 11/29/23 18:59 11/29/23 18:54 11/29/23 18:40 Room Air Diagnostic Findings EXAM: CT Abdomen and Pelvis Without Intravenous Contrast CLINICAL HISTORY: Reason for exam: flank pain. TECHNIQUE: Axial computed tomography images of the abdomen and pelvis without intravenous contrast. CTDI is 28.14 mGy and DLP is 1359.11 mGy-cm. Automated exposure control was utilized for the study. A dose lowering technique was utilized adhering to the principles of ALARA. COMPARISON: 09/18/23 FINDINGS: Lung bases: Bibasilar subsegmental atelectasis. ABDOMEN: Liver: Hepatomegaly and steatosis. Gallbladder and bile ducts: Gallbladder sludge. No calcified stones. No biliary dilatation. Pancreas: Unremarkable. No ductal dilation. Spleen: Mild splenomegaly. Adrenals: Unremarkable. No mass. Kidneys and ureters: Stable severe atrophy of the left kidney with chronic severe hydroureteronephrosis. Mild right-sided hydroureteronephrosis without obstructing radiopaque stone. There are 2 nonobstructing right kidney stones, largest 4 mm. Stomach and bowel: Unremarkable. No obstruction. No mucosal thickening. PELVIS: Appendix: Dilated, fluid-filled, inflamed appendix measuring up to 17 mm in diameter. At the appendix tip, there is a fluid-filled structure measuring up to 30 mm. It is unclear if this represents a dilated appendix tip or a periappendiceal fluid collection/abscess. Bladder: Urinary bladder appears unremarkable. No stones. Reproductive: Prostate is not enlarged. ABDOMEN and PELVIS: Intraperitoneal space: Fat stranding in the right lower quadrant. Trace ascites. No free air. Bones/joints: Lumbar spondylosis. No acute fracture or dislocation. Soft tissues: Unremarkable. Vasculature: Atherosclerosis. No aortic aneurysm. Lymph nodes: Unremarkable. No enlarged lymph nodes. IMPRESSION: 1. Dilated, fluid-filled, inflamed appendix measuring up to 17 mm in diameter, consistent with appendicitis. At the appendix tip, there is a fluid-filled structure measuring up to 30 mm (axial 52, coronal 46, sagittal 16). It is unclear if this represents a dilated appendix tip or a periappendiceal fluid collection/abscess. 2. Stable severe atrophy of the left kidney with chronic severe hydroureteronephrosis. 3. Mild right-sided hydroureteronephrosis without obstructing radiopaque stone. There are 2 nonobstructing right kidney stones, largest 4 mm.
[2023-11-29] MEDS ORDERED: ROCURONIUM BROMIDE 10 MG/ML 5 ML VIAL IV ONE (22:29)
[2023-11-29] MEDS ORDERED: ONDANSETRON INJ 2 MG/ML 2 ML VIAL ONE (22:29)
[2023-11-29] MEDS ORDERED: DEXAMETHASONE SOD INJ 4 MG/ML VIAL ONE (22:29)
[2023-11-29] MEDS ORDERED: SUGAMMADEX SODIUM 200 MG/2 ML VIAL IV ONE (22:29)
[2023-11-29] MEDS ORDERED: PHENYLEPHRINE 100MCG/ML 10ML SYR IV ONE (22:29)
[2023-11-29] MEDS ORDERED: SUCCINYLCHOLINE CHLORIDE 20 MG/ML 10 ML VIAL IV ONE (22:29)
[2023-11-29] MEDS ORDERED: LIDOCAINE 2% 2 ML VIAL/AMP(20MG/ML) INFIL ONE (22:29)
[2023-11-29] MEDS ORDERED: PROPOFOL IV EMULSION 10 MG/ML 20 ML VIAL IV ONE (22:29)
[2023-11-29] MEDS ORDERED: ALBUTEROL HFA 8 GM INHALER INH ONE (23:10)
[2023-11-29] MEDS: BUPIVACAINE/EPINEPHRINE 0.5% MPF 1:200,000 30 ML VIAL ONE (23:34)
--- NOTE | 2023-11-30 00:08 | Post Operative Brief Note ---
Immediate Post Op Note v1 Date of Surgery November 30, 2023 Pre & Post Diagnosis Operation Date: 11/29/23 22:00 <No data on this case meets the specified criteria> I identified the patient and participated in the time-out.: Yes Procedure Operation Date: 11/29/23 22:00 <No data on this case meets the specified criteria> Surgeon Yogesh Blackwell MD Storm Chaser none Estimated Blood Loss 45 Findings Consistent with Post-Op Diagnosis
--- NOTE | 2023-11-30 00:13 | Operative Report ---
Post Operative Report Pre & Post Diagnosis Operation Date: 11/29/23 22:00 <No data on this case meets the specified criteria> Acute appendicitis, gangrenous phlegmon I identified the patient and participated in the time-out.: Yes Procedure Operation Date: 11/29/23 22:00 <No data on this case meets the specified criteria> Laparoscopic appendectomy Surgeon Yogesh Blackwell MD Radar Tester none Estimated Blood Loss 45 Findings Consistent with Post-Op Diagnosis Acute gangrenous appendicitis with right lower quadrant phlegmon and purulent drainage, no perforation Specimens Appendix to pathology Drains 19 Rivera drain in the right lower quadrant Anesthesia Type General Complications None Indications This is a 68-year-old male seen in the ED with right-sided abdominal pain. CT scan shows an acutely inflamed appendix with large amount inflammatory change. There is possible abscess. On exam he has peritoneal signs and white count of 17. Therefore we recommended a laparoscopic appendectomy. He understands all the risks in detail. Description of Procedure The patient was taken to the OR and underwent excellent general anesthesia. Their abdomen was prepped and draped in normal sterile fashion. A transverse supraumbilical incision was made, towel clamps were used to create tension on the abdominal wall. A varies needle was inserted gently into the peritoneal cavity. Good pneumoperitoneum was achieved to about 15 mmHg pressure. Once this was done visualized 11 port was placed in the supraumbilical position. A 12 mm left lower quadrant port , a 5mm suprapubic port , and a 5mm right upper quadrant port were placed in normal fashion. Patient was then placed in head down and rolled to the left. A good diagnostic lap was performed. They had obvious acute appendicitis and large amount of inflammatory change in the RLQ. The cecum was grasped with an atraumatic grasper. A grasper was then was then used to grasp the tip of the appendix. The mesoappendix was splayed open and a harmonic scalpel was used to take down the mesoappendix. This was very difficult dissection with distorted planes to the inflammation. The base of the appendix was identified with some difficultly. An Endo NIGHAT stapler was used to transect the appendix at its base. A Endobag was then inserted through the left lower quadrant port and the appendix was placed into the bag, The bag was removed through the left lower quadrant port. The appendix was then sent for pathologic evaluation. Pneumoperitoneum was re-established and the port replaced. A liter of saline was then used to irrigate the abdomen. There was no active bleeding nor any other abnormalities noted in the abdomen. A Rivera drain was placed in the right lower quadrant and brought out the suprapubic incision. Patient was then placed back in neutral position and the ports were removed the pneumoperitoneum decompressed. The 12mm port fascia was then closed using a 0 Vicryl. The skin was then anesthetized with 0.5% Marcaine with epinephrine local. Interrupted Vicryl is used to close the skin. Dermabond was used to reinforce the incisions. Sterile dressings were applied. Patient tolerated procedure without complication was sent to the postop recovery period of observation. They will be sent to the floor for the rest of their care. I attest to the content of the Intraoperative Record and any orders documented therein. Any exceptions are noted below.
--- NOTE | 2023-11-30 01:01 | Anesthesiology Progress Note ---
Date of Service November 30, 2023 Anesthesia Post Procedure Vital Signs Vital Signs: Temp Pulse Pulse Resp BP BP Pulse Ox 11/30/23 00:53 36.6 C 85 18 144/72 H 93 11/30/23 00:43 36.6 C 98 H 18 133/71 93 11/30/23 00:31 36.5 C 95 H 18 173/80 H 98 11/30/23 00:22 36.4 C L 101 H 20 136/76 95 11/29/23 22:15 91 H 18 96/78 L 98 11/29/23 21:06 98 H 18 121/56 L 98 11/29/23 19:14 112 H 17 122/89 92 11/29/23 18:59 36.9 C 11/29/23 18:54 110 H 11/29/23 18:40 36.6 C 114 H 18 160/91 H 90 O2 Del Method O2 Flow Rate 11/30/23 00:53 Nasal Cannula 3 11/30/23 00:43 Nasal Cannula 3 11/30/23 00:31 Oxymask 11/30/23 00:22 Oxymask 11 11/29/23 22:15 Nasal Cannula 2 11/29/23 21:06 Room Air 11/29/23 19:14 Room Air 11/29/23 18:59 11/29/23 18:54 11/29/23 18:40 Room Air Pain Intensity Lower Abdomen: Pain Intensity: 3 Transfer of Care Handoff Completed per policy Notes Mental Status: alert / awake / arousable and participated in evaluation Patient Amnestic to Procedure: Yes Nausea / Vomiting: adequately controlled Pain: adequately controlled Airway Patency, RR, SpO2: stable & adequate BP & HR: stable & adequate Hydration State: stable & adequate Anesthetic Complications: no major complications apparent and Pt Satisfied with anesthetic care
[2023-11-30] MEDS ORDERED: oxyCODONE/ACETAMINOPHEN 5mg/325mg TAB PO PRN (01:25)
[2023-11-30] MEDS ORDERED: MoRPHine SULFATE 4 MG/ML 1 ML CARP\\VIAL IV PRN (01:25)
[2023-11-30] MEDS ORDERED: ACETAMINOPHEN 325 MG TAB PO PRN (01:25)
[2023-11-30] MEDS ORDERED: ONDANSETRON INJ 2 MG/ML 2 ML VIAL IV PRN (01:25)
[2023-11-30] MEDS: LACTATED RINGER'S 1,000 ML IV SCH (01:37)
[2023-11-30] MEDS: PIPERACILLIN/TAZOBACTAM 4.5 GM in DEXTROSE 5% MINI-B 100 ML IV ONE (01:58)
[2023-11-30] MEDS: PANTOprazole 40 MG TAB PO SCH (05:20)
[2023-11-30] MEDS: oxyCODONE/ACETAMINOPHEN 5mg/325mg TAB PO PRN (06:30)
[2023-11-30] MEDS: PIPERACILLIN/TAZOBACTAM 4.5 GM in DEXTROSE 5% MINI-B 100 ML IV SCH (07:52)
--- NOTE | 2023-11-30 07:52 | XRay Report ---
SINGLE VIEW CHEST CLINICAL HISTORY: Cough FINDINGS: 2 AP, portable, upright chest radiographs are compared to study dated 02/19/2021. The heart is top normal for projection. There is bibasilar scarring/atelectasis. The lungs and pleural spaces a re otherwise clear. No pneumothorax is seen. The bony thorax is grossly intact. IMPRESSION: No active disease in the chest. ACT 112: Negative or not required by law. Electronically signed by: Ashok Marquez M.D. 11/30/2023 7:50 AM
[2023-11-30] MEDS: MoRPHine SULFATE 2 MG/ML CARP IV PRN (07:56)
[2023-11-30 09:02] LABS: Hemoglobin 12.9 g/dl (14.0-18.0); Mean Corpuscular Hemoglobin 25.1 pg (25.0-34.0); Mean Corpuscular Hgb Conc 31.5 g/dL (32.0-36.0); Mean Corpuscular Volume 79.9 fL (80.0-100.0); Platelet Count 178 K/uL (130-400); RDW Coefficient of Variation 16.1 % (11.5-14.5); RDW Standard Deviation 46.6 fL (36.4-46.3); Red Blood Count 5.13 M/uL (4.70-6.10); White Blood Count 19.35 K/ul (4.8-10.8)
[2023-11-30 09:20] LABS: Basophils # (auto) 0.03 K/uL (0.00-0.20); Basophils % (auto) 0.2 %; Eosinophils # (auto) 0.03 K/uL (0.00-0.50); Eosinophils % (auto) 0.2 %; Immature Granulocytes # (auto) 0.18 K/uL (0.01-0.20); Immature Granulocytes % (auto) 0.9 %; Lymphocytes # (auto) 0.69 K/uL (1.20-3.40); Lymphocytes % (auto) 3.6 %; Monocytes # (auto) 0.68 K/uL (0.11-0.59); Monocytes % (auto) 3.5 %; Neutrophils # (auto) 17.74 K/uL (1.40-6.50); Neutrophils % (auto) 91.6 %
[2023-11-30 09:24] LABS: BUN Creatinine Ratio 16.9 (10-20); Creatinine Clr Calc Pharmacy 77.3 ml/min; Est GFR (Non-African American) 53.5 ml/min; Potassium 3.9 mmol/L (3.5-5.1)
--- NOTE | 2023-11-30 12:23 | Surgery Progress Note ---
Date of Service November 30, 2023 Assessment & Plan (1) Acute appendicitis: Plan: POD # 1 s/p laparoscopic appendectomy avss postop pain controlled leukocytosis of 19k Plan: Continue IV zosyn continue lisa drain to bulb suction clears for now encourage ambulation and incentive spirometry will likely need a few days of IV abx given gangrenous appendicitis and phlegmon repeat am labs Dr. Blackwell has seen and examined patient, agrees with above Admission and Anticipated Discharge Date Admission Date: November 30, 2023 Subjective feeling okay not having much pain, controlled at this time no n,v tolerating clears urinating without difficulty no chest pain or shortness of breath Physical Exam Constitutional: WD/WN, vitals as above + obese, cooperative and comfortable; no acute distress and not ill appearing Respiratory: normal respiratory effort, lungs clear to auscultation Cardiovascular: RRR, no murmur, no edema Gastrointestinal (Abdomen): Inspection/Auscultation: abdomen normal to inspection, + abdominal surgical incision (c/d/i with dermabond) and + abdominal surgical drain present (bloody serosagnuineous); abdomen not distended Percussion/Palpation: + abdomen tender (at incision sites) and abdomen soft; no guarding, abdomen not rigid and abdomen not firm Skin: no rashes, warm and dry Psychiatric: A+Ox3, euthymic affect Results & Data Vital Signs (Past 12 Hours) Vital Signs Temp Pulse Pulse Resp BP BP Pulse Ox 11/30/23 07:49 37.0 C 102 H 18 132/76 90 11/30/23 04:30 36.6 C 92 H 18 150/72 H 95 11/30/23 03:30 36.7 C 85 18 154/78 H 94 11/30/23 02:30 36.5 C 94 H 18 162/82 H 95 11/30/23 02:00 36.7 C 92 H 16 163/82 H 94 11/30/23 01:30 11/30/23 01:30 11/30/23 01:27 36.6 C 92 H 18 164/83 H 96 11/30/23 00:53 36.6 C 85 18 144/72 H 93 11/30/23 00:43 36.6 C 98 H 18 133/71 93 11/30/23 00:31 36.5 C 95 H 18 173/80 H 98 O2 Del Method O2 Flow Rate 11/30/23 07:49 Room Air 11/30/23 04:30 Nasal Cannula 2 11/30/23 03:30 Nasal Cannula 2 11/30/23 02:30 Nasal Cannula 3 11/30/23 02:00 Nasal Cannula 3 11/30/23 01:30 Nasal Cannula 3 11/30/23 01:30 Nasal Cannula 3 11/30/23 01:27 Nasal Cannula 3 11/30/23 00:53 Nasal Cannula 3 11/30/23 00:43 Nasal Cannula 3 11/30/23 00:31 Oxymask Laboratory Results 11/30/23 11/29/23 11/29/23 Range/Units 08:41 Unknown 19:51 WBC 19.35 H 17.59 H (4.8-10.8) K/ul RBC 5.13 5.58 (4.70-6.10) M/uL Hgb 12.9 L 14.0 (14.0-18.0) g/dl Hct 41.0 L 44.2 (42.0-52.0) % MCV 79.9 L 79.2 L (80.0-100.0) fL MCH 25.1 25.1 (25.0-34.0) pg MCHC 31.5 L 31.7 L (32.0-36.0) g/dL RDW Std Deviation 46.6 H 46.0 (36.4-46.3) fL RDW Coeff of Thea 16.1 H 16.2 H (11.5-14.5) % Plt Count 178 208 (130-400) K/uL MPV 10.0 10.1 (9.4-12.4) fL Immature Gran % (Auto) 0.9 0.8 % Neut % (Auto) 91.6 84.2 % Lymph % (Auto) 3.6 8.6 % [place] % (Auto) 3.5 5.8 % Eos % (Auto) 0.2 0.4 % Baso % (Auto) 0.2 0.2 % Neut # (Auto) 17.74 H 14.81 H (1.40-6.50) K/uL Lymph # (Auto) 0.69 L 1.51 (1.20-3.40) K/uL [place] # (Auto) 0.68 H 1.02 H (0.11-0.59) K/uL Eos # (Auto) 0.03 0.07 (0.00-0.50) K/uL Baso # (Auto) 0.03 0.04 (0.00-0.20) K/uL Immature Gran # (Auto) 0.18 0.14 (0.01-0.20) K/uL Sodium 138 138 (136-145) mmol/L Potassium 3.9 3.4 L (3.5-5.1) mmol/L Chloride 105 100 (98-107) mmol/L Carbon Dioxide 25 29 (21-32) mmol/L Anion Gap 8 9 (3-11) BUN 23 24 H (6-23) mg/dl Creatinine 1.36 1.47 H (0.6-1.4) mg/dl Est Cr Clr Drug Dosing 77.3 71.5 ml/min Est GFR ( Amer) 62.0 56.4 ml/min Est GFR (Non-Af Amer) 53.5 48.7 ml/min BUN/Creatinine Ratio 16.9 16.3 (10-20) Glucose 142 H 111 H (70-99(Fasting)) mg/dl Lactate 1.1 (0.4-2.0) mmol/L Calcium 8.0 L 9.3 (8.6-10.3) mg/dl Total Bilirubin 0.8 (0.2-1.0) mg/dl AST 17 (13-39) U/L ALT 15 (7-52) U/L Alkaline Phosphatase 75 (34-104) U/L Total Protein 7.2 (6.0-8.3) gm/dl Albumin 3.4 (3.4-5.0) gm/dl Globulin 3.8 (2.5-4.0) gm/dl Albumin/Globulin Ratio 0.9 (0.9-2) Lipase 6 L (11-82) U/L Urine Color Yellow Urine Appearance Cloudy A (Clear) Urine pH 5.5 (4.5-7.5) Ur Specific [place] 1.016 (1.000-1.030) Urine Protein 1+ H (Negative) Urine Glucose (UA) Negative (Negative) Urine Ketones Negative (Negative) Urine Blood Negative (Negative) Urine Nitrite Negative (Negative) Urine Bilirubin Negative (Negative) Urine Urobilinogen Negative (Negative) Ur Leukocyte Esterase 2+ H (Negative) Urine WBC (Auto) >50 H (0-5) /hpf Urine RBC (Auto) 0-2 (0-2) /hpf U Hyaline Cast (Auto) 0-2 (0-2) /lpf U Epithel Cells (Auto) 0-2 (0-2) /hpf Urine Bacteria (Auto) None Seen (None Seen) Adenovirus (PCR) Not Detected (NotDetected) B. pertussis DNA (PCR) Not Detected (NotDetected) B.parapertussis DNA PCR Not Detected (NotDetected) C. pneumoniae DNA (PCR) Not Detected (NotDetected) Coronavirus OC43 (PCR) Not Detected (NotDetected) Coronavirus HKU1 (PCR) Not Detected (NotDetected) Coronavirus 229E (PCR) Not Detected (NotDetected) SARS-CoV-2 (PCR) Not Detected (NotDetected) Coronavirus NL63 (PCR) Not Detected (NotDetected) Human Metapneumovir PCR Not Detected (NotDetected) Influenza Type A (PCR) Not Detected (NotDetected) Influenza Type B (PCR) Not Detected (NotDetected) M. pneumoniae (PCR) Not Detected (NotDetected) Parainfluenza 1 (PCR) Not Detected (NotDetected) Parainfluenza 2 (PCR) Not Detected (NotDetected) Parainfluenza 3 (PCR) Not Detected (NotDetected) Parainfluenza 4 (PCR) Not Detected (NotDetected) RSV (PCR) Not Detected (NotDetected) Entero/Rhino (PCR) Not Detected (NotDetected) (1) Acute appendicitis Acute appendicitis type: unspecified acute appendicitis type Qualified Code(s): K35.80 - Unspecified acute appendicitis
[2023-12-01 08:28] LABS: Basophils # (auto) 0.02 K/uL (0.00-0.20); Basophils % (auto) 0.1 %; Eosinophils # (auto) 0.16 K/uL (0.00-0.50); Eosinophils % (auto) 1.2 %; Hematocrit (blood only) 37.3 % (42.0-52.0); Hemoglobin 11.7 g/dl (14.0-18.0); Immature Granulocytes % (auto) 0.7 %; Lymphocytes # (auto) 1.33 K/uL (1.20-3.40); Lymphocytes % (auto) 9.9 %; Mean Corpuscular Hemoglobin 25.2 pg (25.0-34.0); Mean Corpuscular Hgb Conc 31.4 g/dL (32.0-36.0); Mean Corpuscular Volume 80.4 fL (80.0-100.0); Mean Platelet Volume 9.9 fL (9.4-12.4); Monocytes # (auto) 0.92 K/uL (0.11-0.59); Monocytes % (auto) 6.8 %; Neutrophils # (auto) 10.96 K/uL (1.40-6.50); Neutrophils % (auto) 81.3 %; Platelet Count 214 K/uL (130-400); RDW Coefficient of Variation 16.3 % (11.5-14.5); RDW Standard Deviation 47.8 fL (36.4-46.3); Red Blood Count 4.64 M/uL (4.70-6.10); White Blood Count 13.49 K/ul (4.8-10.8)
[2023-12-01 08:41] LABS: BUN Creatinine Ratio 14.7 (10-20); Calcium 8.1 mg/dl (8.6-10.3); Creatinine Clr Calc Pharmacy 81.5 ml/min; Est GFR (African American) 66.1 ml/min; Potassium 3.6 mmol/L (3.5-5.1)
--- NOTE | 2023-12-01 09:47 | Surgery Progress Note ---
Date of Service December 01, 2023 Assessment & Plan Admission and Anticipated Discharge Date Admission Date: November 30, 2023 Results & Data Vital Signs (Past 12 Hours) Vital Signs Temp Pulse Resp BP Pulse Ox O2 Del Method 12/01/23 07:51 36.7 C 71 18 126/72 92 Room Air 12/01/23 03:00 36.7 C 68 18 146/80 H 92 Room Air 11/30/23 23:05 36.6 C 75 18 111/68 91 Room Air
--- NOTE | 2023-12-01 09:50 | Surgery Progress Note ---
Date of Service December 01, 2023 Assessment & Plan (1) Acute appendicitis: Plan: WBC 13 one more day of IV abx regular diet possibly home in AM remove drain in AM Admission and Anticipated Discharge Date Admission Date: November 30, 2023 Subjective pain controlled ambulating well Review of Systems Constitutional: no fever and no chills Respiratory: no cough and no dyspnea Cardiovascular: no chest pain Gastrointestinal: + abdominal pain; no nausea and no vomit ing Genitourinary: no dysuria Neurologic: no localized weakness and no generalized weakness Psychiatric: no behavioral changes Physical Exam Constitutional: WD/WN, vitals as above Respiratory: normal respiratory effort, lungs clear to auscultation Cardiovascular: RRR, no murmur, no edema Gastrointestinal (Abdomen): Inspection/Auscultation: abdomen normal to inspection, + abdomen distended and normal bowel sounds Percussion/Palpation: + abdomen tender and abdomen soft; no guarding and abdomen not rigid [place] serosanguinous Musculoskeletal: Head/Neck/Chest: normocephalic and head atraumatic Results & Data Vital Signs (Past 12 Hours) Vital Signs Temp Pulse Resp BP Pulse Ox O2 Del Method 12/01/23 07:51 36.7 C 71 18 126/72 92 Room Air 12/01/23 03:00 36.7 C 68 18 146/80 H 92 Room Air 11/30/23 23:05 36.6 C 75 18 111/68 91 Room Air (1) Acute appendicitis Acute appendicitis type: unspecified acute appendicitis type Qualified Code(s): K35.80 - Unspecified acute appendicitis
[2023-12-01] MEDS: TAMSULOSIN HCL 0.4 MG CAP PO SCH (20:39)
[2023-12-01] MEDS: DOCUSATE SODIUM 100 MG CAP PO SCH (20:39)
[2023-12-02 07:17] LABS: Basophils # (auto) 0.06 K/uL (0.00-0.20); Basophils % (auto) 0.5 %; Eosinophils # (auto) 0.41 K/uL (0.00-0.50); Eosinophils % (auto) 3.4 %; Hematocrit (blood only) 37.8 % (42.0-52.0); Hemoglobin 11.7 g/dl (14.0-18.0); Immature Granulocytes # (auto) 0.18 K/uL (0.01-0.20); Immature Granulocytes % (auto) 1.5 %; Lymphocytes % (auto) 11.7 %; Mean Corpuscular Hemoglobin 24.9 pg (25.0-34.0); Mean Corpuscular Volume 80.4 fL (80.0-100.0); Mean Platelet Volume 9.7 fL (9.4-12.4); Monocytes # (auto) 0.85 K/uL (0.11-0.59); Monocytes % (auto) 7.1 %; Neutrophils % (auto) 75.8 %; Platelet Count 208 K/uL (130-400); RDW Coefficient of Variation 16.4 % (11.5-14.5); RDW Standard Deviation 47.8 fL (36.4-46.3)
[2023-12-02 08:06] LABS: BUN Creatinine Ratio 17.1 (10-20); Calcium 8.3 mg/dl (8.6-10.3); Creatinine Clr Calc Pharmacy 89.9 ml/min; Est GFR (African American) 74.3 ml/min; Est GFR (Non-African American) 64.1 ml/min; Potassium 3.6 mmol/L (3.5-5.1)
[2023-12-02] MEDS: FUROSEMIDE 40 MG TAB PO SCH (08:43)
[2023-12-02] MEDS: ATORVASTATIN 40 MG TAB PO SCH (08:44)
[2023-12-02] MEDS: ASPIRIN 81 MG ECTAB PO SCH (08:44)
--- NOTE | 2023-12-02 09:19 | Surgery Progress Note ---
Date of Service December 02, 2023 Assessment & Plan (1) Acute appendicitis: Plan: POD # 2.5 lap appy avss WBC 12k minimal to no postop pain tolerating reg diet Plan: discharge to home remove drain Rx for 7 days Augmentin surgical follow-up in [address] jewell who has seen patient and agrees with above Admission and Anticipated Discharge Date Admission Date: November 30, 2023 Subjective feeling good minimal pain no n,v tolerating reg diet urinating without difficulty Physical Exam Constitutional: WD/WN, vitals as above + obese, cooperative and comfortable; no acute distress and not ill appearing Respiratory: normal respiratory effort, lungs clear to auscultation Cardiovascular: RRR, no murmur, no edema Gastrointestinal (Abdomen): Inspection/Auscultation: abdomen normal to inspection and + abdominal surgical drain present (bloody serosanguineous); abdomen not distended Percussion/Palpation: abdomen soft; abdomen nontender, no guarding, abdomen not rigid and abdomen not firm Skin: no rashes, warm and dry Psychiatric: A+Ox3, euthymic affect Results & Data Vital Signs (Past 12 Hours) Vital Signs Temp Pulse Resp BP Pulse Ox O2 Del Method 12/02/23 07:18 36.8 C 82 16 116/73 92 Room Air Laboratory Results 12/02/23 Range/Units 06:24 WBC 12.00 H (4.8-10.8) K/ul RBC 4.70 (4.70-6.10) M/uL Hgb 11.7 L (14.0-18.0) g/dl Hct 37.8 L (42.0-52.0) % MCV 80.4 (80.0-100.0) fL MCH 24.9 L (25.0-34.0) pg MCHC 31.0 L (32.0-36.0) g/dL RDW Std Deviation 47.8 H (36.4-46.3) fL RDW Coeff of Thea 16.4 H (11.5-14.5) % Plt Count 208 (130-400) K/uL MPV 9.7 (9.4-12.4) fL Immature Gran % (Auto) 1.5 % Neut % (Auto) 75.8 % Lymph % (Auto) 11.7 % [place] % (Auto) 7.1 % Eos % (Auto) 3.4 % Baso % (Auto) 0.5 % Neut # (Auto) 9.10 H (1.40-6.50) K/uL Lymph # (Auto) 1.40 (1.20-3.40) K/uL [place] # (Auto) 0.85 H (0.11-0.59) K/uL Eos # (Auto) 0.41 (0.00-0.50) K/uL Baso # (Auto) 0.06 (0.00-0.20) K/uL Immature Gran # (Auto) 0.18 (0.01-0.20) K/uL Sodium 139 (136-145) mmol/L Potassium 3.6 (3.5-5.1) mmol/L Chloride 106 (98-107) mmol/L Carbon Dioxide 27 (21-32) mmol/L Anion Gap 6 (3-11) BUN 20 (6-23) mg/dl Creatinine 1.17 (0.6-1.4) mg/dl Est Cr Clr Drug Dosing 89.9 ml/min Est GFR ( Amer) 74.3 ml/min Est GFR (Non-Af Amer) 64.1 ml/min BUN/Creatinine Ratio 17.1 (10-20) Glucose 89 (70-99(Fasting)) mg/dl Calcium 8.3 L (8.6-10.3) mg/dl (1) Acute appendicitis Acute appendicitis type: unspecified acute appendicitis type Qualified Code(s): K35.80 - Unspecified acute appendicitis
--- NOTE | 2023-12-13 07:20 | Discharge Summary ---
Date of Service December 13, 2023 Admission HPI Per Admitting Provider This is a 68YO with right-sided abdominal pain for three days. He has history of multiple UTIs. He has associated chills and a likely a fever. He has dysuria. CT scan was done which shows an acute appendicitis. Admission Exam Per Admitting Provider WD/WN, vitals as above Eyes: PERRL, conjunctivae normal, anicteric sclerae ENMT: external ear and nose normal, oropharynx normal Respiratory: normal respiratory effort, lungs clear to auscultation Cardiovascular: RRR, no murmur, no edema Gastrointestinal (Abdomen): Inspection/Auscultation: abdomen normal to inspection and normal bowel sounds; abdomen not distended Percussion/Palpation: + abdomen tender, + guarding and abdomen soft; abdomen not rigid Musculoskeletal: Head/Neck/Chest: normocephalic and head atraumatic Skin: no rashes, warm and dry Principal Diagnosis acute appendicitis with phlegmon Discharge Data Allergies Allergy/AdvReac Type Severity Reaction Status Date / Time No Known Drug Allergies Allergy 0 Verified 10/18/23 15:28 Consultations 11/29/23 21:54 Consult General Surgery Stat Procedures Performed Operation Date: 11/29/23 22:00 Actual Procedures p Laparoscopic Appendectomy(Not Applicable) - Yogesh Blackwell MD Ordered Studies 11/29/23 18:51 CT abd pelvis wo con Stat Hospital Course (1) Appendicitis: The patient was admitted through the emergency department. CT scan showed acute appendicitis with possible phlegmon. She taken the OR underwent uncomplicated laparoscopic appendectomy. He was maintained on IV antibiotics for postop. Time he remained afebrile did well with his diet and activity was discharged to home with follow-up in my office. Total Time Total Time Spent Total Time Spent (In Minutes): 15 Discharge Plan Discharge Items Patient Disposition: Home - Self-Care Reason For Visit: APPENDICITIS Discharge Diagnosis: Acute appendicitis Condition on Discharge: Fair Activity: Per Instructions section Non-emergency contact: Primary Care Provider and Surgeon Call non-emergency contact if: you have any medication questions, your pain is not controlled, your pain is worsening, you have a fever, your temperature is above 101, your wound has increased redness, your wound has increased drainage and your wound pain has increased Follow-up/Referrals: Tracy aDvid DO [Primary Care Provider] - Yogesh Blackwell MD [Physician] - 12/16/23 10:30 am Diet: Regular Addtl Attending Provider Instructions: Post-Surgical ~Discharge Instructions Activity Recommendations: - lifting limitation: (20 pounds for 3-4 weeks), - exercise/sex/sports limit: (nonstrenuous for 2 weeks), - driving or machine use limit: (none for 1 week or until pain free and no longer taking narcotic pain medication), - Shower/bathe limit: (may shower, no submerging incisions underwater for 2 weeks) Diet: - Resume previous diet SPECIAL CARE INSTRUCTIONS: - May shower.. Let water run over area and pat dry. - Leave surgical glue on incisions, this will fall off on its own. Drain site will heal on its own. Keep covered and change dressing daily or as needed to keep clean and dry. - Call the surgeon's office with any questions or concerns - - (ex. temperature higher than 101 degrees F, excessive bleeding or pain). MEDICATIONS: - Resume previous medications unless instructed otherwise by your surgeon. - May take extra strength Tylenol as needed for mild to moderate pain. - Percocet 1 every 6 hours, as needed for moderate to severe pain - Recommend daily stool softener (Colace) while taking narcotic pain medication to prevent constipation or straining. Drink plenty of water daily. - Take antibiotics as prescribed for entire course -Augmentin twice a day for 7 days FOLLOW UP VISIT: - If not already scheduled, please call the office to schedule a two week follow-up appointment. Office number Pending Studies at Discharge: Yes (appendix pathology, will be reviewed at postop visit) Stand-Alone Forms: My [facility] [place], Smoking Cessation Medications and DC Order Prescriptions: New oxycodone-acetaminophen 5-325 mg tablet 1 tab PO Q6H PRN (Reason: pain) Qty: 5 0RF amoxicillin-pot clavulanate 875-125 mg tablet 1 tab PO BID Qty: 14 0RF Continued aspirin 81 mg tablet,delayed release (DR/EC) 81 mg PO QAM tamsulosin 0.4 mg capsule 0.4 mg PO HS 90 Days Qty: 90 3RF furosemide 40 mg tablet 40 mg PO QAM Qty: 90 3RF atorvastatin [Lipitor] 40 mg tablet 40 mg PO QAM Qty: 90 3RF docusate sodium [Colace] 100 mg capsule 100 mg PO BID Qty: 60 5RF Discharge Orders: Discharge Order (Routine); Ordered 12/02/23 Ordered By: Gloria Best/Other Patient Handouts: Appendectomy, What Is Appendicitis? Admission Data Admit Date/Time: 11/30/23 00:23 Attending Provider: Yogesh Blackwell Admit Provider: Yogesh Blackwell Primary Care Provider: Tracy David Other Interventions: Discharge Summary Assessment (RN) Last Done: 12/02/23 11:22
== END 2023-12-02 13:27 | disposition home or self-care (01) | DRG 398 ==
LOC: ED 18:32 → OR 22:30 → 3W 22:30

== ENCOUNTER 2025-07-24 12:09 | Inpatient (IN) ==
--- NOTE | 2025-07-24 12:47 | Emergency Department Note ---
Impression & Plan Pyelonephritis, SIRS (systemic inflammatory response syndrome) ED Provider Note Name: AD ESCOBEDO Age: 69 Sex: Male Arrives Via: Walk-In Informant: Patient ED Provider: Jose Manuel Sotelo MD Chief Complaint: Flank pain Impression: As per impressions above Medical Decision Makin-year-old gentleman with essentially solitary right kidney arrives for evaluations of UTI symptoms in the setting of fevers, chills, nausea, generalized illness. Ongoing for 2 weeks or so. On examination patient appears a bit uncomfortable with some right mid abdominal tenderness palpation and is tachycardic. Blood cultures were obtained along with a lactate which is unremarkable. Fortunately Pro-Vini is within normal range. UA is consistent with UTI and a CT Noncon reveals UTI-like symptoms. My concern is patient is developing pyelonephritis in the sole functioning right kidney. Given patient findings and history he is at high risk of severe worsening and thus IV antibiotics were started and hospitalist was consulted for further management. At this point patient is not septic shock or severe sepsis. Triage/Nursing Notes reviewed by Me External Chart Review by me: I reviewed a PCP note from 07/24/2024 advising patient come to the ER for further evaluation Differential:Renal colic, UTI, appendicitis, diverticulitis, mesenteric ischemia, aortic pathology, infections, inflammatory bowel disease, PUD, biliary pathology, as well as other pathologies. Vital Signs: reviewed and remarkable for tachy Interventions: nss bolus, cefepime 2 gm iv Labs:ED labs Reviewed by me and remarkable for ua concerning UTI Imaging:CT abdomen pelvis without contrast as per my informal interpretation shows significant thickening of the bladder wall, left severe hydronephrosis with atrophic kidney. Confirmed radiologist Consults:Dr Elizabeth of [place] Hospitalist discussed and will evaluate patient further Plan: Disposition:Hospitalization. Condition: Fair History of Present Illness: 69-year-old gentleman arrives for evaluation of right flank pain. Patient with 2 days of worsening right flank pain. Radiates from right lower quadrant into the right flank. Associated with fevers, chills, nausea, near vomiting. Notes that he has been having increasing urinary burning for the last week or 2. He does have a history of a known stone in the right kidney from an ultrasound a few years ago. As far as he is aware he has not passed the stone up until this point. Denies having pain in this area frequently though does note episodically he will have some discomfort but not to this degree. Patient has known CKD with only 1 functioning kidney on the right side. Denies any falls, trauma, injuries. Patient did take Tylenol prior to arrival. Denies any antibiotic use. Patient was seen by PCP earlier today and sent to the ER for further evaluation due to concern for infected kidney stone. Past Medical History:See Below Home Medications:See Below Allergies:nkda Vitals:Blood Pressure: 158/93, Pulse 97, RR 18, T 36.7C, O2 96% on RA Physical Exam: GENERAL: Patient is uncomfortable/unwell appearing and in mild distress. RESPIRATORY: No dyspnea. Clear to auscultation and equal bilaterally. CARDIOVASCULAR: Tachycardic.No murmur appreciated. GASTROINTESTINAL: Mild right abdominal tenderness palpation with some CVA tenderness to palpation on the side. Abdomen soft, non-tender, no peritonitis. EXTREMITIES: Normal motion all extremities, no cyanosis, no edema. NEUROLOGIC: Alert and oriented. No focal neurologic deficits appreciated SKIN: No rash, no jaundice, no diaphoresis. PSYCH: Appropriate GCS: 15 ED Course: Times/Reassessments: stable, HR coming down with iv fluids Jose Manuel Sotelo MD Past Med/Surg History Problem List (Updated 07/25/25 @ 06:48 by Jose Manuel Sotelo MD) Pyelonephritis (Acute) Sepsis SIRS (systemic inflammatory response syndrome) (Acute) Diastolic dysfunction Gout Benign localized prostatic hyperplasia with lower urinary tract symptoms (LUTS) Severe obstructive sleep apnea Prediabetes BPH (benign prostatic hyperplasia) Lymphedema COPD (chronic obstructive pulmonary disease) Degenerative disc disease Depression with anxiety Erectile dysfunction Hypercholesterolemia Hypertension Lumbar disc disease Lumbar radiculopathy Morbid obesity Neurogenic bladder Polymyalgia rheumatica Proteinuria Stage III chronic kidney disease Urinary retention Vitamin D deficiency Medical History Appendicitis Leukocytosis Acute appendicitis Right sided abdominal pain Encounter for pre-operative examination Morbid obesity with BMI of 45.0-49.9, adult Epididymoorchitis History of anesthesia reaction Kidney stones Surgical History S/P appendectomy H/O umbilical hernia repair History of open reduction and internal fixation (ORIF) procedure History of wisdom tooth extraction H/O transurethral resection of prostate H/O cystoscopy History of ankle surgery Family History Daughter Family history of reaction to anesthesia difficulty waking Father Diabetes Hypertension Mother Diabetes Hypertension Arthritis Sister Family history of diabetes mellitus Uncle Colorectal cancer Maternal uncle. Denies family history of Ovarian cancer Prostate cancer Myocardial infarction Breast cancer Social History Smoking Status: Former smoker Tobacco Type: Smokeless Tobacco (Dip or Chew) Age Started Using Tobacco: 15; Age Quit Using Tobacco: 62; packs per day: 1; Second Hand Exposure: No; Do You Dip or Chew Tobacco: Yes; Hx Alcohol Use: Yes Alcohol type: beer, wine and hard liquor Alcohol Intake Frequency: Monthly or Less Hx Substance Use: No Preferred Language: Georgian Communication Ability: Effective Visual Impairment: No Limitations Hearing Ability: Normal Automotive Painter Required: No Beliefs That Will Affect Care: None marital status: Single Current Living Situation: Alone Current Living Situation Comment: Home alone current occupational status: disabled How many Children do You have: 4 Other Information That Helps Us Care for You: No Feels Safe at Home: Yes Safety Concerns: Feels Safe At This Time Childhood Exposure to Second-Hand Smoke: Yes Diet: regular Diet Comment: regular caffeine: Yes (1 CUP COFFEE DAILY) during the past year weight has: remained stable Dental Care, Regularly: No Physical Activity Frequency: 1-2 Times per Week Seatbelt Use: always Sunscreen Use: No Do you think of yourself as: straight/heterosexual Gender Identity: Male Assistive Devices: Glasses Allergies Allergies Allergy/AdvReac Type Severity Reaction Status Date / Time No Known Drug Allergies Allergy 0 Verified 07/03/25 10:44 Home Meds Home Medications Medication Instructions Recorded Confirmed aspirin 81 mg tablet,delayed 81 mg PO QAM 08/30/18 07/24/25 release Previous Rx's Medication Instructions Recorded furosemide 40 mg tablet 40 mg PO QAM #90 tabs 05/03/24 atorvastatin 40 mg tablet (Lipitor) 40 mg PO QAM #90 tabs 10/24/24 docusate sodium 100 mg capsule 100 mg PO BID #60 caps 05/11/25 (Colace) tamsulosin 0.4 mg capsule 0.4 mg PO HS 90 days #90 caps 05/11/25 allopurinol 100 mg tablet 50 mg (1/2 x 100 mg) PO DAILY #30 06/19/25 tabs Results & Data (ED) Vital Signs Vital Signs - 24 hr 07/24/25 12:09 07/24/25 12:15 07/24/25 12:47 Temperature 37.6 C H 36.7 C Temperature Source Oral Oral Pulse Rate 97 H 102 H Pulse Rate [Left Brachial] 102 H Pulse Rhythm [Left Brachial] Regular Pulse Strength [Left Brachial] Normal Respiratory Rate 16 18 Respiratory Effort / Characteristics Non-Labored Non-Labored Spontaneous Respiratory Depth Normal Normal Respiratory Pattern Regular Regular Blood Pressure 158/93 H Blood Pressure [Left Arm] 136/80 Blood Pressure Mean 114 Blood Pressure Mean [Left Arm] 98 Blood Pressure Position [Left Arm] Sitting Pulse Oximetry 93 96 Oxygen Delivery Method Room Air Room Air Sepsis Recent Fever Within 48 Hours No Sepsis New/Unexplained Change in Mental Status N/A Sepsis Action Taken by Nursing No Action Required 07/24/25 14:09 07/24/25 16:10 07/24/25 17:08 Temperature 36.9 C Temperature Source Oral Pulse Rate 83 Pulse Rate [Left Brachial] 90 90 Pulse Rhythm [Left Brachial] Regular Pulse Strength [Left Brachial] Normal Respiratory Rate 18 22 Respiratory Effort / Characteristics Non-Labored Respiratory Depth Normal Respiratory Pattern Regular Blood Pressure Blood Pressure [Left Arm] 136/80 128/81 Blood Pressure Mean Blood Pressure Mean [Left Arm] 98 96 Blood Pressure Position [Left Arm] Sitting Pulse Oximetry 93 93 Oxygen Delivery Method Room Air Room Air Sepsis Recent Fever Within 48 Hours Sepsis New/Unexplained Change in Mental Status Sepsis Action Taken by Nursing 07/24/25 18:00 07/24/25 18:30 Temperature 36.8 C Temperature Source Oral Pulse Rate Pulse Rate [Left Brachial] 90 91 H Pulse Rhythm [Left Brachial] Pulse Strength [Left Brachial] Normal Respiratory Rate 24 Respiratory Effort / Characteristics Respiratory Depth Respiratory Pattern Blood Pressure Blood Pressure [Left Arm] 124/68 126/76 Blood Pressure Mean Blood Pressure Mean [Left Arm] 86 92 Blood Pressure Position [Left Arm] Sitting Pulse Oximetry 95 92 Oxygen Delivery Method Room Air Room Air Sepsis Recent Fever Within 48 Hours Sepsis New/Unexplained Change in Mental Status Sepsis Action Taken by Nursing Laboratory Data 07/25/25 05:20 07/25/25 05:20 Lab Results 07/24/25 07/24/2507/24/25 Range/Units 12:25 12:52 15:02 WBC 13.17 H (4.8-10.8) K/ul RBC 5.79 (4.70-6.10) M/uL Hgb 14.5 (14.0-18.0) g/dL Hct 45.4 (42.0-52.0) % MCV 78.4 L (80.0-100.0) fL MCH 25.0 (25.0-34.0) pg MCHC 31.9 L (32.0-36.0) g/dL RDW Std Deviation 46.3 (36.4-46.3) fL RDW Coeff of Thea 17.3 H (11.5-14.5) % Plt Count 267 (130-400) K/uL MPV 8.8 L (9.4-12.4) fL Immature Gran % (Auto) 1.7 % Neut % (Auto) 69.4 % Lymph % (Auto) 18.8 % Harris % (Auto) 8.1 % Eos % (Auto) 1.2 % Baso % (Auto) 0.8 % Neut # (Auto) 9.14 H (1.40-6.50) K/uL Lymph # (Auto) 2.48 (1.20-3.40) K/uL Harris # (Auto) 1.07 H (0.11-0.59) K/uL Eos # (Auto) 0.16 (0.00-0.50) K/uL Baso # (Auto) 0.10 (0.00-0.20) K/uL Immature Gran # (Auto) 0.22 H (0.01-0.20) K/uL Sodium 141 (136-145) mmol/L Potassium 3.4 L (3.5-5.1) mmol/L Chloride 99 (98-107) mmol/L Carbon Dioxide 33 H (21-32) mmol/L Anion Gap 9 (3-11) BUN 14 (6-23) mg/dl Creatinine 1.59 H (0.6-1.4) mg/dl Est Cr Clr Drug Dosing 64.3 ml/min eGFR 46.99 BUN/Creatinine Ratio 8.8 L (10-20) Glucose 105 H (70-99(Fasting)) mg/dl Lactate 1.6 (0.4-2.0) mmol/L Calcium 9.6 (8.6-10.3) mg/dl Total Bilirubin 0.6 (0.2-1.0) mg/dl AST 17 (13-39) U/L ALT 23 (7-52) U/L Alkaline Phosphatase 83 (34-104) U/L Total Protein 8.1 (6.0-8.3) gm/dl Albumin 3.8 (3.4-5.0) gm/dl Globulin 4.3 H (2.5-4.0) gm/dl Albumin/Globulin Ratio 0.9 (0.9-2) Procalcitonin 0.12 (0-0.5) ng/ml Urine Color Yellow Urine Appearance Turbid A (Clear) Urine pH 6.5 (4.5-7.5) Ur Specific Brandon 1.010 (1.000-1.030) Urine Protein 1+ H (Negative) Urine Glucose (UA) Negative (Negative) Urine Ketones Negative (Negative) Urine Blood 2+ H (Negative) Urine Nitrite Positive A (Negative) Urine Bilirubin Negative (Negative) Urine Urobilinogen Negative (Negative) Ur Leukocyte Esterase 3+ H (Negative) Urine WBC (Auto) >50 H (0-5) /hpf Urine RBC (Auto) 11-20 H (0-2) /hpf U Hyaline Cast (Auto) 3-5 H (0-2) /lpf U Epithel Cells (Auto) 0-2 (0-2) /hpf Urine Bacteria (Auto) 4+ H (None Seen) Urine Comment Nasal Screen MRSA (PCR) Negative (Negative) 07/24/25 Range/Units 16:23 WBC (4.8-10.8) K/ul RBC (4.70-6.10) M/uL Hgb (14.0-18.0) g/dL Hct (42.0-52.0) % MCV (80.0-100.0) fL MCH (25.0-34.0) pg MCHC (32.0-36.0) g/dL RDW Std Deviation (36.4-46.3) fL RDW Coeff of Thea (11.5-14.5) % Plt Count (130-400) K/uL MPV (9.4-12.4) fL Immature Gran % (Auto) % Neut % (Auto) % Lymph % (Auto) % Harris % (Auto) % Eos % (Auto) % Baso % (Auto) % Neut # (Auto) (1.40-6.50) K/uL Lymph # (Auto) (1.20-3.40) K/uL Harris # (Auto) (0.11-0.59) K/uL Eos # (Auto) (0.00-0.50) K/uL Baso # (Auto) (0.00-0.20) K/uL Immature Gran # (Auto) (0.01-0.20) K/uL Sodium (136-145) mmol/L Potassium (3.5-5.1) mmol/L Chloride (98-107) mmol/L Carbon Dioxide (21-32) mmol/L Anion Gap (3-11) BUN (6-23) mg/dl Creatinine (0.6-1.4) mg/dl Est Cr Clr Drug Dosing ml/min eGFR BUN/Creatinine Ratio (10-20) Glucose (70-99(Fasting)) mg/dl Lactate 1.4 (0.4-2.0) mmol/L Calcium (8.6-10.3) mg/dl Total Bilirubin (0.2-1.0) mg/dl AST (13-39) U/L ALT (7-52) U/L Alkaline Phosphatase (34-104) U/L Total Protein (6.0-8.3) gm/dl Albumin (3.4-5.0) gm/dl Globulin (2.5-4.0) gm/dl Albumin/Globulin Ratio (0.9-2) Procalcitonin (0-0.5) ng/ml Urine Color Urine Appearance (Clear) Urine pH (4.5-7.5) Ur Specific Brandon (1.000-1.030) Urine Protein (Negative) Urine Glucose (UA) (Negative) Urine Ketones (Negative) Urine Blood (Negative) Urine Nitrite (Negative) Urine Bilirubin (Negative) Urine Urobilinogen (Negative) Ur Leukocyte Esterase (Negative) Urine WBC (Auto) (0-5) /hpf Urine RBC (Auto) (0-2) /hpf U Hyaline Cast (Auto) (0-2) /lpf U Epithel Cells (Auto) (0-2) /hpf Urine Bacteria (Auto) (None Seen) Urine Comment Nasal Screen MRSA (PCR) (Negative) Administered Medications Docusate Sodium (Docusate Sodium 100 Mg Cap) 100 mg PO BID DESIRAE Stop: 08/23/25 20:59 Last Admin: 07/24/25 20:16 Dose: 100 mg Documented By: GLORIA Heparin Sodium (Porcine) (Heparin Sod 5,000 Unit/0.5 Ml Vial) 7,500 units SQ Q12 DESIRAE Stop: 08/23/25 20:59 Last Admin: 07/24/25 21:18 Dose: 7,500 units Documented By: GLORIA Sodium Chloride (Nss) 1,000 mls @ 100 mls/hr IV .Q10H [facility] Stop: 07/27/25 18:44 Last Admin: 07/25/25 05:13 Dose: 100 mls/hr Documented By: Infusion: 07/25/25 05:13 Dose: Infused Documented By: Admin: 07/24/25 20:16 Dose: 100 mls/hr Documented By: GLORIA Cefepime HCl (Maxipime 2000mg) 2,000 mg in 20 mls @ 5 mls/min IV Q8H [facility]; Protocol Stop: 07/31/25 21:59 Last Admin: 07/25/25 05:13 Dose: 5 mls/min Documented By: Admin: 07/24/25 21:18 Dose: 5 mls/min Documented By: GLORIA Tamsulosin HCl (Tamsulosin Hcl 0.4 Mg Cap) 0.4 mg PO HS DESIRAE Stop: 08/23/25 20:59 Last Admin: 07/24/25 20:17 Dose: 0.4 mg Documented By: KDRachel Discontinued Medications Sodium Chloride (Nss) 1,000 mls @ 999 mls/hr IV .Q1H1M ONE Stop: 07/24/25 13:44 Last Infusion: 07/24/25 15:31 Dose: Infused Documented By: Admin: 07/24/25 13:02 Dose: 999 mls/hr Documented By: LELE Cefepime HCl (Maxipime 2000mg) 2,000 mg in 20 mls @ 5 mls/min IV NOW STA Stop: 07/24/25 13:59 Last Admin: 07/24/25 14:05 Dose: 5 mls/min Documented By: [facility] Discharge Plan Visit Data Chief Complaint: Referred by Doctor Stated Complaint: REF BY DOC, KIDNEY STONE ED Provider: Jose Manuel Sotelo Discharge Problem: Pyelonephritis, SIRS (systemic inflammatory response syndrome) Patient Disposition: Admitted As Inpatient Condition: Fair Discharge Instructions Interventions: ED Discharge Assessment Last Done: 07/24/25 18:05
[2025-07-24 12:54] LABS: Hematocrit (blood only) 45.4 % (42.0-52.0); Hemoglobin 14.5 g/dL (14.0-18.0); Immature Granulocytes # (auto) 0.22 K/uL (0.01-0.20); Immature Granulocytes % (auto) 1.7 %; Mean Corpuscular Hemoglobin 25.0 pg (25.0-34.0); Mean Corpuscular Volume 78.4 fL (80.0-100.0); Platelet Count 267 K/uL (130-400); RDW Standard Deviation 46.3 fL (36.4-46.3); Red Blood Count 5.79 M/uL (4.70-6.10); White Blood Count 13.17 K/ul (4.8-10.8)
[2025-07-24] MEDS: SODIUM CHLORIDE 0.9% 1,000 ML IV ONE (13:02)
[2025-07-24 13:12] LABS: Alanine Aminotransferase 23.0 U/L (7-52); Albumin Globulin Ratio 0.9 (0.9-2); Albumin Level 3.8 gm/dl (3.4-5.0); Alkaline Phosphatase 83.0 U/L (34-104); Anion Gap 9.0 (3-11); Bilirubin,Total 0.6 mg/dl (0.2-1.0); Blood Urea Nitrogen 14.0 mg/dl (6-23); Calcium 9.6 mg/dl (8.6-10.3); Carbon Dioxide 33.0 mmol/L (21-32); Chloride 99.0 mmol/L (98-107); Creatinine Clr Calc Pharmacy 64.3 ml/min; Globulin 4.3 gm/dl (2.5-4.0); Glucose 105.0 mg/dl (70-99(Fasting)); Potassium 3.4 mmol/L (3.5-5.1); Sodium 141.0 mmol/L (136-145); Total Protein 8.1 gm/dl (6.0-8.3)
[2025-07-24 13:13] LABS: Appearance Urine Turbid (Clear); Bacteria Urine Automated 4+ (None Seen); Epithelial Cell Urine Auto 0-2 /hpf (0-2); Glucose Urine UA Negative (Negative); WBC Urine Automated >50 /hpf (0-5)
--- NOTE | 2025-07-24 14:04 | CT Scan Report ---
CT SCAN OF THE ABDOMEN AND PELVIS WITHOUT IV CONTRAST CLINICAL HISTORY: Right flank pain COMPARISON STUDY: Abdominal CT dated 11/29/2023 TECHNIQUE: CT scan of the abdomen and pelvis is performed from the lung bases to the proximal femora. Images are reviewed in the axial, sagittal, and coronal planes. IV contrast was not administered for this examination. A dose lowering technique was utilized adhering to the principles of ALARA. CT DOSE: 1324.46 mGy.cm FINDINGS: Lung bases: The heart is abnormal in size and without pericardial effusion. Myocardial fat deposition suggests prior ischemia. There is bibasilar scarring/atelectasis. No airspace consolidation or pleur al effusion is identified. There is a tiny hiatal hernia. Liver: The unenhanced liver is enlarged, measuring 19.8 cm in length. Attenuation is diffusely dimini shed indicating steatosis. There is no intrahepatic biliary ductal dilatation. A 13 mm left lobe cyst is incidentally noted. Gallbladder: Unremarkable. Spleen: The spleen is enlarged, measuring 15.8 cm in length. Pancreas: The unenhanced pancreas is grossly unremarkable. Adrenal glands: Unremarkable. Kidneys: There is severe and asymmetrical cortical atrophy of the left kidney as compared to the righ t which is unchanged from previous. There is moderate to severe left hydroureteronephrosis, with the left ureter dilated to the level of the bladder. There is dilatation of right ureter. No right-sided hydronephrosis is seen. There are at least 7 nonobstructing right renal calculi which measure up to 5 mm. No ureteral stone is identified. There is no evidence of contour deforming mass lesion. Abdominal vasculature: The abdominal aorta is normal in course and caliber noting moderate atheroscle rotic calcification. Bowel: Postsurgical changes noted in the right colon. No bowel obstruction is seen. Peritoneum: There is no intraperitoneal free air or abdominal ascites. Lymphadenopathy: None. Pelvic viscera: The prostate gland is diminutive and heterogeneous. The bladder is mildly distended, and the wall appears thickened/trabeculated indicating chronic outlet obstruction. The left bladder w all appears asymmetrically thickened. There is a diverticulum of the bladder dome. There is pericysti c infiltration. Skeletal structures: The skeletal structures are osteopenic. There is moderate to advanced lumbosacra l spondylosis. No lytic or blastic lesions are seen. Degenerative sclerosis is seen in the sacroiliac joints and pubic symphysis. IMPRESSION: 1. There is pericystic infiltration. Correlate with clinical findings and urinalysis for evidence of cystitis. 2. Markedly asymmetric/severe cortical atrophy of the left kidney with moderate to severe left hydrou reteronephrosis is similar to previous. 3. Right-sided nephrolithiasis. No right renal calculi are identified and there is no right-sided hyd ronephrosis. 4. The left bladder wall appears asymmetrically thickened. This may be on an infectious/inflammatory basis. Follow up with urology is recommended to exclude the possibility of underlying neoplasm. 5. The liver is enlarged and steatotic. 6. Splenomegaly. 7. Additional findings as above. ACT 112: Positive. There are findings on this exam that require communication between the performing entity and the patient following Patient Test Result Information Act ([place] Act 112) guidelines. Electronically signed by: Ashok Marquez M.D. 07/24/2025 2:03 PM
[2025-07-24] MEDS: CEFEPIME 2000MG 2,000 MG/20 ML SYR IV STA (14:05)
--- NOTE | 2025-07-24 14:55 | History & Physical Report ---
Date of Service July 24, 2025 Assessment & Plan (1) SIRS (systemic inflammatory response syndrome): (2) Sepsis: (3) Pyelonephritis: (4) Diastolic dysfunction: (5) Gout: (6) Severe obstructive sleep apnea: (7) Prediabetes: (8) BPH (benign prostatic hyperplasia): (9) COPD (chronic obstructive pulmonary disease): (10) Hypercholesterolemia: (11) Hypertension: (12) Polymyalgia rheumatica: (13) Stage III chronic kidney disease: Plan #SIRS/sepsis #Pyelonephritis/cystitis #Complicated recent recurrent cellulitis -Meets SIRS/sepsis criteria, likely urinary source. Urinalysis very consistent, imaging with cystitis and possible pyelonephritis, clinically consistent with pyelonephritis -Blood and urine cultures pending, cefepime initiated in the emergency department, will continue -Responded well to initial volume expansion: Maintenance fluids during initial hospitalization -MRSA swab pending, trend CRP and procalcitonin -Initial Sepsis Bundle #HFpEF - Gentle volume expansion during initial hospitalization, maintenance fluids, monitor volume status closely, maintenance at 100cc HR to start given mild ISIDRO #Stage III CKD #Solitary right kidney #BPH - Follows with urology and nephrology. Given his presentation is possible he passed a kidney stone. No evident hydronephrosis or active stone process at this time - Avoid nephrotoxic agents, close monitoring of renal function -Consult Nephrology #Gout -Recent flare, he was placed on half dose of allopurinol after the flare a few weeks ago -Was also treated with steroids at that time, increasing likelihood of resistant pathogens/immunosuppression - Hold Allopurinol for short term #COPD - Stable, minimal air trapping #Hypertension - Stable, hold lasix for short term #Severe TASHA - Does not use CPAP, night pulse ox, oxygen as tolerated #Polymyalgia rheumatica -Do not see that he is on any Biologics at this time, he has no recall of this specific diagnosis, noted in problem list. #Prediabetes -Add A1c #Hypercholesterolemia - Statin #FEN -diabetic diet #CODE STATUS - Full code per his wishes, discussed with patient at the bedside at the time of admission History of Present Illness Chief Complaint: Fever/Chills Primary Care Provider: Tracy David DO 69-year-old male with history of COPD, prediabetes, TASHA, stage III CKD with effectively solitary right kidney, hypertension, hypercholesterolemia, gout, diastolic CHF, recent recurrent outpatient cellulitis presents to primary care and into the emergency department with several day history of fevers, chills, malaise, night sweats, dysuria and right flank pain. Contact his primary clinic was advised to be seen in the emergency department initial evaluation there was CT shows evidence of asymmetric bladder thickening and infiltration consistent with cystitis, no significant right-sided hydronephrosis or stranding consistent with pyelonephritis. lab work urinalysis consistent with SIRS/sepsis in the setting of recent recurrent right lower extremity cellulitis, cystitis with likely early pyelonephritis. Secondary to high risk solitary kidney, right flank pain. SIRS labs/symptoms symptoms and recent complex antibiotic regimen for right lower extremity cellulitis he was started on cefepime and referred for admission for volume resuscitation, close monitoring, IV antibiotic therapy and follow cultures. Patient reports he feels a lot better now than when he came in. Has been mostly bothered by the night sweats and then the flank pain and the severe dysuria. He was told previously by urology if he ever had right flank pain since he has known stones within the kidney that could be seen seen in the emergency department immediately. Secondary to his prior bites he came in for evaluation Recent relevant medical history: Traumatic contusion to the right lower extremity in April 2025, in subsequent weeks he developed a cellulitis at the site was treated with a 7-day course of Keflex and doxycycline. Symptoms initially improved but then recurred, became more severe. He was then placed on a 10-day course of Augmentin which he finished approximately 2 weeks ago. He feels as though that has resolved the infection part of the right lower extremity symptoms but he continues to have some redness but no warmth or discomfort that he was having with the previous infections. No known history of resistant infections per patient he follows with nephrology for CKD. And urology for BPH, neurogenic bladder and urinary retention and solitary right kidney. Allergies Allergy/AdvReac Type Severity Reaction Status Date / Time No Known Drug Allergies Allergy 0 Verified 07/03/25 10:44 Home Medications Medication Instructions Recorded Confirmed Type aspirin 81 mg tablet,delayed 81 mg PO QAM 08/30/18 07/24/25 History release furosemide 40 mg tablet 40 mg PO QAM #90 tabs 05/03/24 07/24/25 Rx atorvastatin 40 mg tablet (Lipitor) 40 mg PO QAM #90 tabs 10/24/24 07/24/25 Rx docusate sodium 100 mg capsule 100 mg PO BID #60 caps 05/11/25 07/24/25 Rx (Colace) tamsulosin 0.4 mg capsule 0.4 mg PO HS 90 days #90 caps 05/11/25 07/24/25 Rx allopurinol 100 mg tablet 50 mg (1/2 x 100 mg) PO DAILY #30 06/19/25 07/24/25 Rx tabs Past Med/Surg History Problem List (Updated 07/24/25 @ 14:48 by Gilberto Elizabeth MD) Pyelonephritis Sepsis SIRS (systemic inflammatory response syndrome) Diastolic dysfunction Gout Benign localized prostatic hyperplasia with lower urinary tract symptoms (LUTS) Severe obstructive sleep apnea Prediabetes BPH (benign prostatic hyperplasia) Lymphedema COPD (chronic obstructive pulmonary disease) Degenerative disc disease Depression with anxiety Erectile dysfunction Hypercholesterolemia Hypertension Lumbar disc disease Lumbar radiculopathy Morbid obesity Neurogenic bladder Polymyalgia rheumatica Proteinuria Stage III chronic kidney disease Urinary retention Vitamin D deficiency Medical History Appendicitis Leukocytosis Acute appendicitis Right sided abdominal pain Encounter for pre-operative examination Morbid obesity with BMI of 45.0-49.9, adult Epididymoorchitis History of anesthesia reaction Kidney stones Surgical History S/P appendectomy H/O umbilical hernia repair History of open reduction and internal fixation (ORIF) procedure History of wisdom tooth extraction H/O transurethral resection of prostate H/O cystoscopy History of ankle surgery Family History Daughter Family history of reaction to anesthesia difficulty waking Father Diabetes Hypertension Mother Diabetes Hypertension Arthritis Sister Family history of diabetes mellitus Uncle Colorectal cancer Maternal uncle. Denies family history of Ovarian cancer Prostate cancer Myocardial infarction Breast cancer Social History Smoking Status: Never smoker Tobacco Type: Cigarettes Age Started Using Tobacco: 15; Age Quit Using Tobacco: 62; packs per day: 1; Second Hand Exposure: Yes (parents smoked); Do You Dip or Chew Tobacco: Yes; Hx Alcohol Use: Yes Alcohol type: beer and wine Alcohol Intake Frequency: Shawn hly or Less Hx Substance Use: No Preferred Language: Thai Communication Ability: Effective Visual Impairment: No Limitations Hearing Ability: Normal [employer] Required: No Beliefs That Will Affect Care: None marital status: Single Current Living Situation: Alone Current Living Situation Comment: Home alone current occupational status: disabled How many Children do You have: 4 Feels Safe at Home: Yes Childhood Exposure to Second-Hand Smoke: Yes Diet: regular Diet Comment: regular caffeine: Yes (1 CUP COFFEE DAILY) during the past year weight has: remained stable Dental Care, Regularly: No Physical Activity Frequency: 1-2 Times per Week Seatbelt Use: always Sunscreen Use: No Do you think of yourself as: straight/heterosexual Gender Identity: Male Assistive Devices: Glasses Review of Systems Review of Systems: Positive for dysuria, fevers/chills, night sweats for the last several nights., Right flank pain intermittently over several days. Physical Exam Physical Exam: GENERAL: Mild distress. Mildly toxic RESPIRATORY: Mild prolongation of expiratory phase, no wheezing or focal decreases CARDIOVASCULAR: RRRNo murmur appreciated. GASTROINTESTINAL: Mild right falnk/abdomnial tenderness palpation with no CVAT bilaterally EXTREMITIES: Chronic 1+ edema in the lower extremities bilaterally with chronic venous stasis changes, postinflammatory erythema of the right lower extremity of the mid medial arana with no underlying induration, warmth or erythema NEUROLOGIC: Alert and oriented. No focal neurologic deficits appreciated SKIN: No pallor, no rash, no discoloration, no diaphoresis. PSYCH: Appropriate Results & Data Results & Data Vital Signs (Past 12 Hours) Vital Signs Temp Pulse Pulse Resp BP BP Pulse Ox 07/24/25 14:09 36.9 C 90 18 136/80 93 07/24/25 12:47 102 H 07/24/25 12:15 36.7 C 97 H 18 158/93 H 96 07/24/25 12:09 37.6 C H 102 H 16 136/80 93 O2 Del Method 07/24/25 14:09 Room Air 07/24/25 12:47 07/24/25 12:15 Room Air 07/24/25 12:09 Room Air Laboratory Results 07/24/25 12:52 Aerobic Blood Culture - Pending Blood Anaerobic Blood Culture - Pending 07/24/25 13:09 Aerobic Blood Culture - Pending Blood Anaerobic Blood Culture - Pending 07/24/25 12:25 Urine Culture - Pending Urine,Clean Catch 07/24/25 07/24/25 12:52 12:25 WBC 13.17 H RBC 5.79 Hgb 14.5 Hct 45.4 MCV 78.4 L MCH 25.0 MCHC 31.9 L RDW Std Deviation 46.3 RDW Coeff of Thea 17.3 H Plt Count 267 MPV 8.8 L Immature Gran % (Auto) 1.7 Neut % (Auto) 69.4 Lymph % (Auto) 18.8 [place] % (Auto) 8.1 Eos % (Auto) 1.2 Baso % (Auto) 0.8 Neut # (Auto) 9.14 H Lymph # (Auto) 2.48 [place] # (Auto) 1.07 H Eos # (Auto) 0.16 Baso # (Auto) 0.10 Immature Gran # (Auto) 0.22 H Sodium 141 Potassium 3.4 L Chloride 99 Carbon Dioxide 33 H Anion Gap 9 BUN 14 Creatinine 1.59 H Est Cr Clr Drug Dosing 64.3 eGFR 46.99 BUN/Creatinine Ratio 8.8 L Glucose 105 H Lactate 1.6 Calcium 9.6 Total Bilirubin 0.6 AST 17 ALT 23 Alkaline Phosphatase 83 Total Protein 8.1 Albumin 3.8 Globulin 4.3 H Albumin/Globulin Ratio 0.9 Procalcitonin 0.12 Urine Color Yellow Urine Appearance Turbid A Urine pH 6.5 Ur Specific [place] 1.010 Urine Protein 1+ H Urine Glucose (UA) Negative Urine Ketones Negative Urine Blood 2+ H Urine Nitrite Positive A Urine Bilirubin Negative Urine Urobilinogen Negative Ur Leukocyte Esterase 3+ H Urine WBC (Auto) >50 H Urine RBC (Auto) 11-20 H U Hyaline Cast (Auto) 3-5 H U Epithel Cells (Auto) 0-2 Urine Bacteria (Auto) 4+ H Urine Comment Diagnostic Findings Abdomen/Pelvis CT 07/24/25 12:44 CT SCAN OF THE ABDOMEN AND PELVIS WITHOUT IV CONTRAST CLINICAL HISTORY: Right flank pain COMPARISON STUDY: Abdominal CT dated 11/29/2023 TECHNIQUE: CT scan of the abdomen and pelvis is performed from the lung bases to the proximal femora. Images are reviewed in the axial, sagittal, and coronal planes. IV contrast was not administered for this examination. A dose lowering technique was utilized adhering to the principles of ALARA. CT DOSE: 1324.46 mGy.cm FINDINGS: Lung bases: The heart is abnormal in size and without pericardial effusion. Myocardial fat deposition suggests prior ischemia. There is bibasilar sc arring/atelectasis. No airspace consolidation or pleural effusion is identified. There is a tiny hiatal hernia. Liver: The unenhanced liver is enlarged, measuring 19.8 cm in length. Attenuation is diffusely diminished indicating steatosis. There is no intrahepatic biliary ductal dilatation. A 13 mm left lobe cyst is incidentally noted. Gallbladder: Unremarkable. Spleen: The spleen is enlarged, measuring 15.8 cm in length. Pancreas: The unenhanced pancreas is grossly unremarkable. Adrenal glands: Unremarkable. Kidneys: There is severe and asymmetrical cortical atrophy of the left kidney as compared to the right which is unchanged from previous. There is moderate to severe left hydroureteronephrosis, with the left ureter dilated to the level of the bladder. There is dilatation of right ureter. No right-sided hydronephrosis is seen. There are at least 7 nonobstructing right renal calculi which measure up to 5 mm. No ureteral stone is identified. There is no evidence of contour deforming mass lesion. Abdominal vasculature: The abdominal aorta is normal in course and caliber noting moderate atherosclerotic calcification. Bowel: Postsurgical changes noted in the right colon. No bowel obstruction is seen. Peritoneum: There is no intraperitoneal free air or abdominal ascites. Lymphadenopathy: None. Pelvic viscera: The prostate gland is diminutive and heterogeneous. The bladder is mildly distended, and the wall appears thickened/trabeculated indicating chronic outlet obstruction. The left bladder wall appears asymmetrically thickened. There is a diverticulum of the bladder dome. There is pericystic infiltration. Skeletal structures: The skeletal structures are osteopenic. There is moderate to advanced lumbosacral spondylosis. No lytic or blastic lesions are seen. Degenerative sclerosis is seen in the sacroiliac joints and pubic symphysis. IMPRESSION: 1. There is pericystic infiltration. Correlate with clinical findings and urinalysis for evidence of cystitis. 2. Markedly asymmetric/severe cortical atrophy of the left kidney with moderate to severe left hydroureteronephrosis is similar to previous. 3. Right-sided nephrolithiasis. No right renal calculi are identified and there is no right-sided hydronephrosis. 4. The left bladder wall appears asymmetrically thickened. This may be on an infectious/inflammatory basis. Follow up with urology is recommended to exclude the possibility of underlying neoplasm. 5. The liver is enlarged and steatotic. 6. Splenomegaly. 7. Additional findings as above. ACT 112: Positive. There are findings on this exam that require communication between the performing entity and the patient following Patient Test Result Information Act ([place] Act 112) guidelines. Electronically signed by: Ashok Marquez M.D. 07/24/2025 2:03 PM PG Care Time/CCT Total # of Minutes Spent Total Time Spent with Patient: Total time spent is greater than 50% in coordination of care (as documented) at patient's floor/unit and/or counseling patient: Coding Level of Care Code 10413 INT INP/OBS CARE 2/55MIN Diagnoses SIRS (systemic inflammatory response syndrome) R65.10 Sepsis A41.9 Pyelonephritis N12 Diastolic dysfunction I51.89 Gout M10.9 Severe obstructive sleep apnea G47.33 Prediabetes R73.03 BPH (benign prostatic hyperplasia) N40.0 COPD (chronic obstructive pulmonary disease) J44.9 Hypercholesterolemia E78.00 Hypertension I10 Polymyalgia rheumatica M35.3 Stage III chronic kidney disease N18.3
[2025-07-24] MEDS ORDERED: ACETAMINOPHEN 325 MG TAB PO PRN (18:45)
[2025-07-24] MEDS ORDERED: ONDANSETRON INJ 2 MG/ML 2 ML VIAL IV PRN (18:45)
--- NOTE | 2025-07-24 18:58 | Electrocardiogram Report ---
Test Reason : Blood Pressure : */* mmHG Vent. Rate : 94 BPM Atrial Rate : 94 BPM P-R Int : 144 ms QRS Dur : 110 ms QT Int : 364 ms P-R-T Axes : 24 4 33 degrees QTcB Int : 455 ms Normal sinus rhythm Low voltage QRS Right bundle branch block Abnormal ECG When compared with ECG of 19-Feb-2021 12:44, QRS axis Shifted left Confirmed by Alejandro Alejandra ([id number]) on 07/24/2025 6:58:01 PM Referred By: REFERRED SELF Confirmed By: Alejandro Alejandra
[2025-07-24] MEDS: SODIUM CHLORIDE 0.9% 1,000 ML IV SCH (20:16)
[2025-07-24] MEDS: DOCUSATE SODIUM 100 MG CAP PO SCH (20:16)
[2025-07-24] MEDS: TAMSULOSIN HCL 0.4 MG CAP PO SCH (20:17)
[2025-07-24] MEDS: HEPARIN SOD 5,000 UNIT/0.5 ML VIAL SQ SCH (21:18)
[2025-07-24] MEDS: CEFEPIME 2000MG 2,000 MG/20 ML SYR IV SCH (21:18)
[2025-07-25 06:03] LABS: Hematocrit (blood only) 39.7 % (42.0-52.0); Hemoglobin 12.5 g/dL (14.0-18.0); Immature Granulocytes # (auto) 0.18 K/uL (0.01-0.20); Immature Granulocytes % (auto) 2.2 %; Mean Corpuscular Hemoglobin 25.0 pg (25.0-34.0); Mean Corpuscular Volume 79.2 fL (80.0-100.0); Platelet Count 212 K/uL (130-400); RDW Standard Deviation 46.4 fL (36.4-46.3); Red Blood Count 5.01 M/uL (4.70-6.10); White Blood Count 8.27 K/ul (4.8-10.8)
[2025-07-25 06:40] LABS: Alanine Aminotransferase 20.0 U/L (7-52); Albumin Globulin Ratio 0.9 (0.9-2); Albumin Level 3.4 gm/dl (3.4-5.0); Alkaline Phosphatase 71.0 U/L (34-104); Anion Gap 6.0 (3-11); Bilirubin,Total 0.6 mg/dl (0.2-1.0); Blood Urea Nitrogen 16.0 mg/dl (6-23); Calcium 8.9 mg/dl (8.6-10.3); Carbon Dioxide 29.0 mmol/L (21-32); Chloride 104.0 mmol/L (98-107); Creatinine Clr Calc Pharmacy 62.2 ml/min; Globulin 3.7 gm/dl (2.5-4.0); Glucose 92.0 mg/dl (70-99(Fasting)); Magnesium 2.1 mg/dl (1.7-2.4); Potassium 4.0 mmol/L (3.5-5.1); Sodium 139.0 mmol/L (136-145); Total Protein 7.1 gm/dl (6.0-8.3)
[2025-07-25 07:13] VITALS: RESP 18
[2025-07-25] MEDS: ASPIRIN 81 MG ECTAB PO SCH (08:07)
[2025-07-25] MEDS: ATORVASTATIN 40 MG TAB PO SCH (08:08)
--- NOTE | 2025-07-25 09:35 | Nephrology Consultation ---
Date of Consultation July 25, 2025 Assessment & Plan (1) Pyelonephritis: * Appears clinically improved from admission note * Recommend 48 hrs IV antibiotic and then transition to oral for a total of 7-10 days treatment * Est Clcr 62 cc/min. No dose adjustment needed for IV cefipime * Await blood and urine culture results * Performs CIC due to neurogenic bladder (2) Stage III chronic kidney disease: * Baseline Cr 1.6. 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 Krishnan is a 69 year old white male who is seen at the request of the [facility] hospitalist service for evaluation of CKD, pyelonephritis. Information for the HPI is obtained from direct patient interview and review of the EMR. HPI is summarized as follows: CKD stage G3a/A2 (moderate impairment). Baseline Cr 1.6 w/ EGFR 45 cc/min. Urine sediment reveals blood due to neurogenic bladder requiring periodic C.I.C. Urinary protein is within normal limits. Renal US revealed atrophy of the L kidney (6 cm). Renal impairment is due to chronic L UPJ obstruction. Mr. Krishnan presented to [facility] last evening w/ complaints of R flank discomfort. EMD evaluation revealed T 36.5, WBC 13.1 w/ 69% neutrophils, Cr 1.6. Abdominal CT revealed L cortical atrophy w/ chronic L hydroureteronep hrosis, R sided nephrolithiasis but no ureteral calculi and no R hydronephrosis. Bladder appeared asymmetrically thickened c/w infection. He was diagnosed w/ pyelonephritis and admitted to the hospitalist service for IV antibiotic therapy. Allergies Allergy/AdvReac Type Severity Reaction Status Date / Time No Known Drug Allergies Allergy 0 Verified 07/03/25 10:44 Home Medications Medication Instructions Recorded Confirmed Type aspirin 81 mg tablet,delayed 81 mg PO QAM 08/30/18 07/24/25 History release furosemide 40 mg tablet 40 mg PO QAM #90 tabs 05/03/24 07/24/25 Rx atorvastatin 40 mg tablet (Lipitor) 40 mg PO QAM #90 tabs 10/24/24 07/24/25 Rx docusate sodium 100 mg capsule 100 mg PO BID #60 caps 05/11/25 07/24/25 Rx (Colace) tamsulosin 0.4 mg capsule 0.4 mg PO HS 90 days #90 caps 05/11/25 07/24/25 Rx allopurinol 100 mg tablet 50 mg (1/2 x 100 mg) PO DAILY #30 06/19/25 07/24/25 Rx tabs Patient History Medical History Appendicitis Leukocytosis Acute appendicitis Right sided abdominal pain Encounter for pre-operative examination Morbid obesity with BMI of 45.0-49.9, adult Epididymoorchitis History of anesthesia reaction after ankle sx had "a really bad headache" Kidney stones Surgical History S/P appendectomy 11/30/23 H/O umbilical hernia repair History of open reduction and internal fixation (ORIF) procedure left ankle--hardware in place History of wisdom tooth extraction H/O transurethral resection of prostate H/O cystoscopy History of ankle surgery Family History Daughter Family history of reaction to anesthesia difficulty waking Father Diabetes Hypertension Mother Diabetes Hypertension Arthritis Sister Family history of diabetes mellitus Uncle Colorectal cancer Maternal uncle. Denies family history of Ovarian cancer Prostate cancer Myocardial infarction Breast cancer Social History Smoking Status: Former smoker Tobacco Type: Smokeless Tobacco (Dip or Chew) Age Started Using Tobacco: 15; Age Quit Using Tobacco: 62; packs per day: 1; Second Hand Exposure: No; Do You Dip or Chew Tobacco: Yes; Hx Alcohol Use: Yes Alcohol type: beer, wine and hard liquor Alcohol Intake Frequency: Monthly or Less Hx Substance Use: No Preferred Language: Pakistani Communication Ability: Effective Visual Impairment: No Limitations Hearing Ability: Normal Health And Nutrition Specialist Required: No Beliefs That Will Affect Care: None marital status: Single Current Living Situation: Alone Current Living Situation Comment: Home alone current occupational status: disabled How many Children do You have: 4 Other Information That Helps Us Care for You: No Feels Safe at Home: Yes Safety Concerns: Feels Safe At This Time Childhood Exposure to Second-Hand Smoke: Yes Diet: regular Diet Comment: regular caffeine: Yes (1 CUP COFFEE DAILY) during the past year weight has: remained stable Dental Care, Regularly: No Physical Activity Frequency: 1-2 Times per Week Seatbelt Use: always Sunscreen Use: No Do you think of yourself as: straight/heterosexual Gender Identity: Male Assistive Devices: None Review of Systems Constitutional: no fever Eyes: no problem reported Ear, Nose, Mouth, Throat: no problem reported Respiratory: no cough and no dyspnea Cardiovascular: no chest pain Gastrointestinal: no abdominal pain, no nausea, no vomiting and no diarrhea/loose stools Genitourinary: + flank pain (R) Integumentary: no rash Physical Exam Constitutional: not in distress Eyes: PERRL, conjunctivae normal, anicteric sclerae ENMT: external ear and nose normal, oropharynx normal Neck: trachea midline, no thyromegaly Respiratory: normal respiratory effort, lungs clear to auscultation Cardiovascular: RRR, no murmur, no edema Gastrointestinal (Abdomen): normal bowel sounds, soft, nontender, no hep atosplenomegaly Musculoskeletal: Extremities: no cyanosis Skin: no rashes, warm and dry Neurologic: awake; not confused Results & Data Vital Signs (Past 12 Hours) Vital Signs Temp Pulse Pulse Resp BP Pulse Ox O2 Del Method 07/25/25 07:20 Room Air 07/25/25 07:19 75 07/25/25 07:12 36.5 C 71 18 118/70 97 Room Air 07/25/25 02:54 36.9 C 79 20 156/68 H 91 Room Air 07/24/25 22:56 36.6 C 89 20 135/72 92 Room Air 07/24/25 21:53 77 Laboratory Results Laboratory Results WBC 8.27 K/ul (4.8-10.8) 07/25/25 05:20 RBC 5.01 M/uL (4.70-6.10) 07/25/25 05:20 Hgb 12.5 g/dL (14.0-18.0) L 07/25/25 05:20 Hct 39.7 % (42.0-52.0) L 07/25/25 05:20 MCV 79.2 fL (80.0-100.0) L 07/25/25 05:20 MCH 25.0 pg (25.0-34.0) 07/25/25 05:20 MCHC 31.5 g/dL (32.0-36.0) L 07/25/25 05:20 RDW Std Deviation 46.4 fL (36.4-46.3) H 07/25/25 05:20 RDW Coeff of Thea 16.2 % (11.5-14.5) H 07/25/25 05:20 Plt Count 212 K/uL (130-400) 07/25/25 05:20 MPV 8.7 fL (9.4-12.4) L 07/25/25 05:20 Immature Gran % (Auto) 2.2 % 07/25/25 05:20 Neut % (Auto) 64.2 % 07/25/25 05:20 Lymph % (Auto) 24.1 % 07/25/25 05:20 [place] % (Auto) 6.7 % 07/25/25 05:20 Eos % (Auto) 2.1 % 07/25/25 05:20 Baso % (Auto) 0.7 % 07/25/25 05:20 Neut # (Auto) 5.32 K/uL (1.40-6.50) 07/25/25 05:20 Lymph # (Auto) 1.99 K/uL (1.20-3.40) 07/25/25 05:20 [place] # (Auto) 0.55 K/uL (0.11-0.59) 07/25/25 05:20 Eos # (Auto) 0.17 K/uL (0.00-0.50) 07/25/25 05:20 Baso # (Auto) 0.06 K/uL (0.00-0.20) 07/25/25 05:20 Immature Gran # (Auto) 0.18 K/uL (0.01-0.20) 07/25/25 05:20 Sodium 139 mmol/L (136-145) 07/25/25 05:20 Potassium 4.0 mmol/L (3.5-5.1) 07/25/25 05:20 Chloride 104 mmol/L (98-107) 07/25/25 05:20 Carbon Dioxide 29 mmol/L (21-32) 07/25/25 05:20 Anion Gap 6 (3-11) 07/25/25 05:20 BUN 16 mg/dl (6-23) 07/25/25 05:20 Creatinine 1.64 mg/dl (0.6-1.4) H 07/25/25 05:20 Est Cr Clr Drug Dosing 62.2 ml/min 07/25/25 05:20 eGFR 45.28 07/25/25 05:20 BUN/Creatinine Ratio 9.8 (10-20) L 07/25/25 05:20 Glucose 92 mg/dl (70-99(Fasting)) 07/25/25 05:20 Lactate 1.4 mmol/L (0.4-2.0) 07/24/25 16:23 Calcium 8.9 mg/dl (8.6-10.3) 07/25/25 05:20 Magnesium 2.1 mg/dl (1.7-2.4) 07/25/25 05:20 Total Bilirubin 0.6 mg/dl (0.2-1.0) 07/25/25 05:20 AST 15 U/L (13-39) 07/25/25 05:20 ALT 20 U/L (7-52) 07/25/25 05:20 Alkaline Phosphatase 71 U/L (34-104) 07/25/25 05:20 C-Reactive Protein 11.32 mg/dl (0-0.5) H 07/25/25 05:20 Total Protein 7.1 gm/dl (6.0-8.3) 07/25/25 05:20 Albumin 3.4 gm/dl (3.4-5.0) 07/25/25 05:20 Globulin 3.7 gm/dl (2.5-4.0) 07/25/25 05:20 Albumin/Globulin Ratio 0.9 (0.9-2) 07/25/25 05:20 Procalcitonin 0.14 ng/ml (0-0.5) 07/25/25 05:20 Urine Color Yellow 07/24/25 12: Urine Appearance Turbid (Clear) A 07/24/25 12: Urine pH 6.5 (4.5-7.5) 07/24/25 12: Ur Specific [place] 1.010 (1.000-1.030) 07/24/25 12:25 Urine Protein 1+ (Negative) H 07/24/25 12:25 Urine Glucose (UA) Negative (Negative) 07/24/25 12:25 Urine Ketones Negative (Negative) 07/24/25 12:25 Urine Blood 2+ (Negative) H 07/24/25 12:25 Urine Nitrite Positive (Negative) A 07/24/25 12:25 Urine Bilirubin Negative (Negative) 07/24/25 12:25 Urine Urobilinogen Negative (Negative) 07/24/25 12:25 Ur Leukocyte Esterase 3+ (Negative) H 07/24/25 12:25 Urine WBC (Auto) >50 /hpf (0-5) H 07/24/25 12:25 Urine RBC (Auto) 11-20 /hpf (0-2) H 07/24/25 12:25 U Hyaline Cast (Auto) 3-5 /lpf (0-2) H 07/24/25 12:25 U Epithel Cells (Auto) 0-2 /hpf (0-2) 07/24/25 12:25 Urine Bacteria (Auto) 4+ (None Seen) H 07/24/25 12:25 Urine Comment 07/24/25 12:25 Nasal Screen MRSA (PCR) Negative (Negative) 07/24/25 15:02 Impressions Abdomen/Pelvis CT 07/24/25 12:44 CT SCAN OF THE ABDOMEN AND PELVIS WITHOUT IV CONTRAST CLINICAL HISTORY: Right flank pain COMPARISON STUDY: Abdominal CT dated 11/29/2023 TECHNIQUE: CT scan of the abdomen and pelvis is performed from the lung bases to the proximal femora. Images are reviewed in the axial, sagittal, and coronal planes. IV contrast was not administered for this examination. A dose lowering technique was utilized adhering to the principles of ALARA. CT DOSE: 1324.46 mGy.cm FINDINGS: Lung bases: The heart is abnormal in size and without pericardial effusion. Myocardial fat deposition suggests prior ischemia. There is bibasilar scarring/atelectasis. No airspace consolidation or pleural effusion is identified. There is a tiny hiatal hernia. Liver: The unenhanced liver is enlarged, measuring 19.8 cm in length. Attenuation is diffusely diminished indicating steatosis. There is no intrahepatic biliary ductal dilatation. A 13 mm left lobe cyst is incidentally noted. Gallbladder: Unremarkable. Spleen: The spleen is enlarged, measuring 15.8 cm in length. Pancreas: The unenhanced pancreas is grossly unremarkable. Adrenal glands: Unremarkable. Kidneys: There is severe and asymmetrical cortical atrophy of the left kidney as compared to the right which is unchanged from previous. There is moderate to severe left hydroureteronephrosis, with the left ureter dilated to the level of the bladder. There is dilatation of right ureter. No right-sided hydronephrosis is seen. There are at least 7 nonobstructing right renal calculi which measure up to 5 mm. No ureteral stone is identified. There is no evidence of contour deforming mass lesion. Abdominal vasculature: The abdominal aorta is normal in course and caliber noting moderate atherosclerotic calcification. Bowel: Postsurgical changes noted in the right colon. No bowel obstruction is seen. Peritoneum: There is no intraperitoneal free air or abdominal ascites. Lymphadenopathy: None. Pelvic viscera: The prostate gland is diminutive and heterogeneous. The bladder is mildly distended, and the wall appears thickened/trabeculated indicating chronic outlet obstruction. The left bladder wall appears asymmetrically thickened. There is a diverticulum of the bladder dome. There is pericystic infi ltration. Skeletal structures: The skeletal structures are osteopenic. There is moderate to advanced lumbosacral spondylosis. No lytic or blastic lesions are seen. Degenerative sclerosis is seen in the sacroiliac joints and pubic symphysis. IMPRESSION: 1. There is pericystic infiltration. Correlate with clinical findings and urinalysis for evidence of cystitis. 2. Markedly asymmetric/severe cortical atrophy of the left kidney with moderate to severe left hydroureteronephrosis is similar to previous. 3. Right-sided nephrolithiasis. No right renal calculi are identified and there is no right-sided hydronephrosis. 4. The left bladder wall appears asymmetrically thickened. This may be on an infectious/inflammatory basis. Follow up with urology is recommended to exclude the possibility of underlying neoplasm. 5. The liver is enlarged and steatotic. 6. Splenomegaly. 7. Additional findings as above. ACT 112: Positive. There are findings on this exam that require communication between the performing entity and the patient following Patient Test Result Information Act ([place] Act 112) guidelines. Electronically signed by: Ashok Marquez M.D. 07/24/2025 2:03 PM PG Care Time/CCT Total # of Minutes Spent Total Time Spent with Patient: 80 min provided to review EMD notes, progress notes, laboratory data, culture results, abdominal CT films and report, interview and examine patient, order am labs, update medical record Coding Level of Care Code 55948 IN/OBS CONSULT LVL 5,80M Diagnoses Pyelonephritis N12 Stage III chronic kidney disease N18.3 Hypertension I10
--- NOTE | 2025-07-25 15:55 | Hospitalist Progress Note ---
Date of Service July 25, 2025 Assessment & Plan (1) Sepsis: (2) Pyelonephritis: (3) Stage III chronic kidney disease: Plan This patient is a 69-year-old male with a history of CKD stage III, atrophic left kidney, gout, BPH, urinary retention, HTN, chronic HFpEF, severe TASHA not on CPAP, COPD, previous PMR? Prediabetes, HLD, morbid obesity BMI 43.7, fatty liver, splenomegaly, #Sepsis/pyelonephritis/cystitis-Meets SIRS/sepsis criteria on arrival with leukocytosis, tachycardia, low-grade fever, with urinary source. Lactate negative and procalcitonin negative x 3. UA abnormal, imaging with cystitis and possible pyelonephritis, clinically consistent with pyelonephritis. Urine culture growing Pseudomonas aeruginosa, sensitivities pending. Blood cultures remain no growth to date. Clinically improving. -Follow urine culture Pseudomonas for sensitivities-hopeful for oral antibiotic option, otherwise would need IV antibiotics on discharge for total 7 days -Discontinue IV fluids -Follow blood cultures-remain no growth to date - Follow CBC and BMP in the a.m. #Acute renal insufficiency in the setting of stage III CKD/solitary functional right kidney/BPH- Follows with urology and nephrology. Given his presentation is possible he passed a kidney stone. No evident hydronephrosis or active stone process at this time. Received IV fluids and creatinine stable at 1.64. Baseline creatinine around 1.4-1.5. Appreciate nephrology consultation - Discontinue IV fluids - Resume home Lasix on 07/26 - Avoid nephrotoxic agents -Follow BMP - Follow postvoid residual bladder scans-he previously required self catheterization #Microcytic anemia-Hgb low at 12.5 after receiving IV fluids, microcytic. Might be iron deficiency plus anemia of chronic kidney disease - Check iron studies in the a.m. #Fatty liver/splenomegaly/morbid obesity BMI 43.7-noted to have fatty liver and splenomegaly on CT. Likely secondary to obesity - Recommended low carbohydrate diet - Recommended weight loss - Follow-up with PCP and/or GI #Gout-Recent flare, he was placed on half dose of allopurinol after the flare a few weeks ago-Was also treated with steroids at that time, increasing likelihood of resistant pathogens/immunosuppression - Can resume home allopurinol at dose of 100 mg p.o. daily #COPD/severe TASHA-no longer on CPAP as he could not tolerate it. Not on any maintenance inhalers for COPD. Quit smoking years ago - Encouraged to get repeat sleep study and get back on CPAP # Chronic HFpEF/hypertension-BPs are stable, has chronic trace lower extremity edema which she says is improved from previous - Holding home Lasix for sepsis but resume likely in 1-2 days #Severe TASHA - Does not use CPAP, night pulse ox, oxygen as tolerated #Polymyalgia rheumatica-Do not see that he is on any Biologics at this time, he has no recall of this specific diagnosis, noted in problem list. #Prediabetes-recent HgbA1c 5.7% in 05/2025 -Recommend weight loss, low carbohydrate diet #Hypercholesterolemia - Statin, aspirin DVT prophylaxis-heparin SQ Disposition-continued stay on telemetry, improving, can likely discharge on 07/26-if needs IV antibiotics, this may hold up discharge-discussed case with medical case manager who may be able to arrange IV antibiotics and Flippin if needed Admission and Anticipated Discharge Date Admission Date: July 24, 2025 Subjective Patient is already feeling much improved. He denies any further flank pain, no abdominal pain or nausea. He is eating and drinking. He is urinating and postvoid residual bladder scan only 86 mL. Denies chest pains or shortness of breath over his chronic dyspnea on exertion. Reviewed nephrology consultation. Telemetry with normal sinus rhythm with rates in the 70s to 90s Physical Exam Constitutional: WD/WN, vitals as above + morbidly obese Respiratory: normal respiratory effort, lungs clear to auscultation Cardiovascular: Rate/Rhythm: regular rate and regular rhythm Heart Sounds: no murmur Extremities: + edema (Trace edema in the legs bilaterally) Gastrointestinal (Abdomen): normal bowel sounds, soft, nontender, no hepatosplenomegaly Psychiatric: A+Ox3, euthymic affect Results & Data Results & Data Vital Signs (Past 12 Hours) Vital Signs Temp Pulse Pulse Resp BP Pulse Ox O2 Del Method 07/25/25 15:31 36.6 C 70 18 136/70 95 Room Air 07/25/25 15:08 Room Air 07/25/25 11:43 36.4 C L 74 18 132/76 94 Room Air 07/25/25 07:20 Room Air 07/25/25 07:19 75 07/25/25 07:12 36.5 C 71 18 118/70 97 Room Air Laboratory Results BMP, CBC, CRP, procalcitonin, blood cultures, urine culture reviewed PG Care Time/CCT Total # of Minutes Spent Total Time Spent with Patient: Total time spent is greater than 50% in coordination of care (as documented) at patient's floor/unit and/or counseling patient: Coding Level of Care Code 34372 SUB INP/OBS CARE 3/50MIN Diagnoses Sepsis A41.9 Pyelonephritis N12 Stage III chronic kidney disease N18.3
[2025-07-26] MEDS ORDERED: CIPROFLOXACIN 500 MG TAB PO SCH
[2025-07-26 06:30] LABS: Hematocrit (blood only) 40.0 % (42.0-52.0); Hemoglobin 12.4 g/dL (14.0-18.0); Immature Granulocytes # (auto) 0.27 K/uL (0.01-0.20); Immature Granulocytes % (auto) 3.7 %; Mean Corpuscular Hemoglobin 24.3 pg (25.0-34.0); Mean Corpuscular Volume 78.4 fL (80.0-100.0); Platelet Count 201 K/uL (130-400); RDW Standard Deviation 45.6 fL (36.4-46.3); Red Blood Count 5.10 M/uL (4.70-6.10); White Blood Count 7.34 K/ul (4.8-10.8)
[2025-07-26 07:01] LABS: Anion Gap 5.0 (3-11); Blood Urea Nitrogen 17.0 mg/dl (6-23); Calcium 9.1 mg/dl (8.6-10.3); Carbon Dioxide 27.0 mmol/L (21-32); Chloride 107.0 mmol/L (98-107); Creatinine Clr Calc Pharmacy 66.0 ml/min; Glucose 87.0 mg/dl (70-99(Fasting)); Iron 57.0 mcg/dl (35-175); Potassium 4.3 mmol/L (3.5-5.1); Sodium 139.0 mmol/L (136-145); Total Iron Binding Cap Calc 249.0 mcg/dl (250-450); Transferrin 178.0 mg/dl (200-360); Transferrin (FE) Percent Satur 23.0 % (20-50)
[2025-07-26 07:20] LABS: Ferritin 209.6 ng/ml (8-388)
[2025-07-26 07:29] VITALS: BP 121/78; TEMP 98.1; O2SAT 94
--- NOTE | 2025-07-26 08:44 | Nephrology Progress Note ---
Date of Service July 26, 2025 Assessment & Plan (1) Pyelonephritis: Plan: * Clinically resolved * Recommend 48 hrs IV antibiotic and then transition to oral for a total of 7-10 days treatment * Est Clcr 62 cc/min. No dose adjustment needed for IV cefipime * Urine culture w/ gram negative bacilli. Sensitivities are pending * Performs CIC due to neurogenic bladder * Kidney function is at baseline. No further nephrology evaluation indicated at this time. Will sign off. Please call if further assistance is needed. (2) Stage III chronic kidney disease: Plan: * Baseline Cr 1.6. H/o L renal atrophy due to L UPJ obstruction and neurogenic bladder (3) Hypertension: Plan: * BP currently acceptable Admission and Anticipated Discharge Date Admission Date: July 24, 2025 Subjective Mr. Krishnan was evaluated in his hospital room this morning. He denied fever. He reported that his flank pain and dysuria have resolved. He has been voiding on his own while hospitalized and has not performed a CIC Review of Systems Constitutional: no fever Eyes: no problem reported Ear, Nose, Mouth, Throat: no problem reported Respiratory: no cough and no dyspnea Cardiovascular: no chest pain Gastrointestinal: no abdominal pain, no nausea, no vomiting and no diarrhea/loose stools Genitourinary: no flank pain Integumentary: no rash Physical Exam Constitutional: not in distress Eyes: PERRL, conjunctivae normal, anicteric sclerae ENMT: external ear and nose normal, oropharynx normal Neck: trachea midline, no thyromegaly Respiratory: normal respiratory effort, lungs clear to auscultation Cardiovascular: RRR, no murmur, no edema Gastrointestinal (Abdomen): normal bowel sounds, soft, nontender, no hepatosplenomegaly Musculoskeletal: Extremities: no cyanosis Skin: no rashes, warm and dry Neurologic: awake; not confused Results & Data Vital Signs (Past 12 Hours) Vital Signs Temp Pulse Pulse Resp BP BP Pulse Ox 07/26/25 07:28 36.7 C 63 18 121/78 94 07/26/25 05:37 68 07/26/25 03:47 36.4 C L 75 18 145/77 H 92 07/25/25 22:56 36.5 C 58 L 18 120/76 91 07/25/25 21:31 62 O2 Del Method 07/26/25 07:28 Room Air 07/26/25 05:37 07/26/25 03:47 Room Air 07/25/25 22:56 Room Air 07/25/25 21:31 Laboratory Results Laboratory Results - last 24 hr 07/26/25 05:21 WBC 7.34 RBC 5.10 Hgb 12.4 L Hct 40.0 L MCV 78.4 L MCH 24.3 L MCHC 31.0 L RDW Std Deviation 45.6 RDW Coeff of Thea 16.0 H Plt Count 201 MPV 8.8 L Immature Gran % (Auto) 3.7 Neut % (Auto) 66.2 Lymph % (Auto) 20.6 [place] % (Auto) 6.0 Eos % (Auto) 2.7 Baso % (Auto) 0.8 Neut # (Auto) 4.86 Lymph # (Auto) 1.51 [place] # (Auto) 0.44 Eos # (Auto) 0.20 Baso # (Auto) 0.06 Immature Gran # (Auto) 0.27 H Sodium 139 Potassium 4.3 Chloride 107 Carbon Dioxide 27 Anion Gap 5 BUN 17 Creatinine 1.55 H Est Cr Clr Drug Dosing 66.0 eGFR 48.45 BUN/Creatinine Ratio 11.0 Glucose 87 Calcium 9.1 Iron 57 TIBC 249 L Transferrin 178 L Transferrin % Sat 23 Ferritin 209.6 PG Care Time/CCT Total # of Minutes Spent Total Time Spent with Patient: 50 min provided to review progress notes, laboratory data, microbiologic data, antibiotic therapy, interview and examined patient, discuss POC with patient, update medical record. Coding Level of Care Code 72594 SUB INP/OBS CARE 3/50MIN Diagnoses Pyelonephritis N12 Stage III chronic kidney disease N18.3 Hypertension I10
[2025-07-26] MEDS: FUROSEMIDE 40 MG TAB PO SCH (08:51)
[2025-07-26] MEDS ORDERED: CIPROFLOXACIN 500MG HOME PACK PO ONE (09:42)
--- NOTE | 2025-07-26 09:55 | Discharge Summary ---
Discharge Summary Date of Service July 26, 2025 Principal Dx & Hospital Course #1 = Principal Diagnosis (1) Sepsis: (2) Pyelonephritis: (3) Stage III chronic kidney disease: (4) Fatty liver: (5) Splenomegaly: Plan This patient is a 69-year-old male with a history of CKD stage III, atrophic left kidney, gout, BPH, urinary retention, HTN, chronic HFpEF, severe TASHA not on CPAP, COPD, previous PMR? Prediabetes, HLD, morbid obesity BMI 43.7, fatty liver, splenomegaly, #Sepsis/pyelonephritis/cystitis/BPH-Met SIRS/sepsis criteria on arrival with leukocytosis, tachycardia, low-grade fever, with urinary source. Lactate negative and procalcitonin negative x 3. UA abnormal, imaging with cystitis and possible pyelonephritis, clinically consistent with pyelonephritis. Urine cultu re growing Pseudomonas aeruginosa, pansensitive. Blood cultures remain no growth to date. Clinically much improved-no pain, leukocytosis and fevers resolved, tachycardia resolved. -Received 2-1/2 days of IV cefepime while inpatient-discharged home with Cipro 500 mg p.o. twice daily x 7-1/2 more days for total of 10 days of treatment -Follow blood cultures after discharge but do not expect growth-remain no growth to date -Continue follow-up with urology-he does still retain some small amounts of urine in the 150-160 mL range after voiding which may contribute to development of UTI #Acute renal insufficiency in the setting of stage III CKD/solitary functional right kidney/BPH- Follows with urology and nephrology. Given his presentation is possible he passed a kidney stone as multiple nonobstructive stones were present on CT. But the pain is also likely from acute pyelonephritis and is now resolved. No evident hydronephrosis or active stone process at this time. Received IV fluids and creatinine stable at went from 1.64 back to baseline. Baseline creatinine around 1.4-1.5. Appreciate nephrology consultation - Resumed home Lasix on 07/26 - Avoid nephrotoxic agents -Follow BMP as an outpatient with nephrology - Follow postvoid residual bladder scans-he previously required self catheterization-as noted previously, PVR is 160 mL range #Microcytic anemia-Hgb low at 12.5 after receiving IV fluids, microcytic. Iron studies here with transferrin saturation normal at 23%, ferritin normal at 200 although in the setting of acute infection may be falsely elevated. Possibly some mild iron deficiency plus anemia of chronic kidney disease. He has an upcoming endoscopy/colonoscopy with GI -Follow CBC as an outpatient with PCP - Continue GI evaluation for occult GI blood loss #Fatty liver/splenomegaly/morbid obesity BMI 43.7-noted to have fatty liver and splenomegaly on CT. Likely secondary to obesity - Recommended low carbohydrate diet - Recommended weight loss - Follow-up with PCP and/or GI #Gout-Recent flare, he was placed on half dose of allopurinol after the flare a few weeks ago-Was also treated with steroids at that time, increasing likelihood of resistant pathogens/immunosuppression - Can increase home allopurinol back to 100 mg p.o. daily #COPD/severe TASHA-no longer on CPAP as he could not tolerate it. Not on any maintenance inhalers for COPD. Quit smoking years ago - Encouraged to get repeat sleep study and get back on CPAP # Chronic HFpEF/hypertension-BPs are stable, has chronic trace lower extremity edema which she says is improved from previous - Held home Lasix for sepsis but now resumed #Polymyalgia rheumatica-Do not see that he is on any Biologics at this time, he has no recall of this specific diagnosis, noted in problem list. #Prediabetes-recent HgbA1c 5.7% in 05/2025 -Recommend weight loss, low carbohydrate diet #Hypercholesterolemia -Continue statin, aspirin DVT prophylaxis-heparin SQ Disposition-stable for discharge to home Notes For Next Care Provider Follow-up anemia Has fatty liver-needs follow-up and weight loss Medication Changes From Visit Added Cipro 500 mg p.o. twice daily x 7.5 more days Increased allopurinol dose to 100 mg p.o. once daily Admission HPI Per Admitting Provider 69-year-old male with history of COPD, prediabetes, TASHA, stage III CKD with effectively solitary right kidney, hypertension, hypercholesterolemia, gout, diastolic CHF, recent recurrent outpatient cellulitis presents to primary care and into the emergency department with several day history of fevers, chills, malaise, night sweats, dysuria and right flank pain. Contact his primary clinic was advised to be seen in the emergency department initial evaluation there was CT shows evidence of asymmetric bladder thickening and infiltration consistent with cystitis, no significant right-sided hydronephrosis or stranding consistent with pyelonephritis. lab work urinalysis consistent with SIRS/sepsis in the setting of recent recurrent right lower extremity cellulitis, cystitis with likely early pyelonephritis. Secondary to high risk solitary kidney, right flank pain. SIRS labs/symptoms symptoms and recent complex antibiotic regimen for right lower extremity cellulitis he was started on cefepime and referred for admission for volume resuscitation, close monitoring, IV antibiotic therapy and follow cultures. Patient reports he feels a lot better now than when he came in. Has been mostly bothered by the night sweats and then the flank pain and the severe dysuria. He was told previously by urology if he ever had right flank pain since he has known stones within the kidney that could be seen seen in the emergency department immediately. Secondary to his prior bites he came in for evaluation Recent relevant medical history: Traumatic contusion to the right lower extremity in April 2025, in subsequent weeks he developed a cellulitis at the site was treated with a 7-day course of Keflex and doxycycline. Symptoms initially improved but then recurred, became more severe. He was then placed on a 10-day course of Augmentin which he finished approximately 2 weeks ago. He feels as though that has resolved the infection part of the right lower extremity symptoms but he continues to have some redness but no warmth or discomfort that he was having with the previous infections. No known history of resistant infections per patient he follows with nephrology for CKD. And urology for BPH, neurogenic bladder and urinary retention and solitary right kidney. Discharge Exam Constitutional WD/WN, vitals as above + morbidly obese Respiratory normal respiratory effort, lungs clear to auscultation Cardiovascular Rate/Rhythm: regular rate and regular rhythm Heart Sounds: no murmur Extremities: + edema (Trace edema in the legs bilaterally) Gastrointestinal (Abdomen) normal bowel sounds, soft, nontender, no hepatosplenomegaly Psychiatric A+Ox3, euthymic affect Discharge Plan Discharge Items Patient Disposition: Home - Self-Care Reason For Visit: PYELONEPHRITIS Discharge Diagnosis: Acute pyelonephritis Sepsis Pseudomonas aeruginosa UTI Condition on Discharge: Good Activity: Resume your previous activity Non-emergency contact: Primary Care Provider Call non-emergency contact if: you have any medication questions, your symptoms worsen, your pain is not controlled, your pain is worsening, your pain is unusual for you and your temperature is above 101 Follow-up/Referrals: Ricotta,Tracy M., DO [Primary Care Provider] - (Follow-up within 1-2 weeks) Diet: Carb Consistent or DM2 Addtl Attending Provider Instructions: You were admitted with a kidney infection. Fortunately, this did not spread to your bloodstream. You had great improvement with IV antibiotics and should finish out a course with 1 more week of ciprofloxacin 500 mg by mouth twice a day. You do still retain some small amounts of urine. Please continue follow- up with the urologist for this. On your CT scan, you were noted to have a fatty liver and enlarged spleen which is secondary to fatty liver. It is recommended that you work with your primary care physician on weight loss. You should follow a low carbohydrate diet as well. It is also recommended that you reconsider starting back on a CPAP machine for your sleep apnea. You can discuss this with your primary care physician. You are found to have mild anemia. Your iron levels were not significantly low. This may be from your chronic kidney disease. 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 Your primary care physician can follow your blood counts. It was a pleasure taking care of you! If you have any questions about your care before your hospital follow-up visit with your primary care provider, please call [phone] and ask to be transferred to the [facility] Medicine office. Sincerely, Gloria Bello M.D. Pending Studies at Discharge: Yes (Blood cultures-no growth to date) Stand-Alone Forms: My [facility], Smoking Cessation Medications and DC Order Prescriptions: New ciprofloxacin HCl [Cipro] 500 mg tablet 500 mg PO BID Qty: 13 0RF Continued aspirin 81 mg tablet,delayed release (DR/EC) 81 mg PO QAM Patient Comments: 04/17- otc unable to verify furosemide 40 mg tablet 40 mg PO QAM Qty: 90 3RF atorvastatin [Lipitor] 40 mg tablet 40 mg PO QAM Qty: 90 3RF docusate sodium [Colace] 100 mg capsule 100 mg PO BID Qty: 60 5RF tamsulosin 0.4 mg capsule 0.4 mg PO HS 90 Days Qty: 90 3RF Changed allopurinol 100 mg tablet 100 mg PO DAILY Qty: 30 2RF Discharge Orders: Discharge Order (Routine); Ordered 12/25/25 Ordered By: Gloria Bello Admission Data Admit Date/Time: 07/24/25 18:41 Attending Provider: Gloria Bello Admit Provider: Gilberto Elizabeth Primary Care Provider: Tracy David Other Providers: Gilberto Elizabeth; Tarun Qiu Hospital Stay Data Consultations 07/24/25 14:16 ED Decision to Admit Stat 07/24/25 18:45 Consult Nephrology Routine Diagnostic Imagining Performed 07/24/25 12:44 CT abd pelvis wo con Stat Pending Results Patient Have Any Pending Studies at Discharge: Yes (Blood cultures-no growth to date) Discharge Instructions Given to Patient (Per Discharging Provider) You were admitted with a kidney infection. Fortunately, this did not spread to your bloodstream. You had great improvement with IV antibiotics and should finish out a course with 1 more week of ciprofloxacin 500 mg by mouth twice a day. You do still retain some small amounts of urine. Please continue follow- up with the urologist for this. On your CT scan, you were noted to have a fatty liver and enlarged spleen which is secondary to fatty liver. It is recommended that you work with your primary care physician on weight loss. You should follow a low carbohydrate diet as well. It is also recommended that you reconsider starting back on a CPAP machine for your sleep apnea. You can discuss this with your primary care physician. You are found to have mild anemia. Your iron levels were not significantly low. This may be from your chronic kidney disease. 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 Your primary care physician can follow your blood counts. It was a pleasure taking care of you! If you have any questions about your care before your hospital follow-up visit with your primary care provider, please call [phone] and ask to be transferred to the [facility] Medicine office. Sincerely, Gloria Bello M.D. Total Time Total Time Spent Total Time Spent (In Minutes): 35 min Coding Level of Care Code 12437 INP/OBS DISCH >30 MIN Diagnoses Sepsis A41.9 Pyelonephritis N12 Stage III chronic kidney disease N18.3 Fatty liver K76.0 Splenomegaly R16.1
[2025-07-26 10:04] VITALS: PULSE 63
== END 2025-07-26 10:34 | disposition home or self-care (01) | DRG 872 ==
LOC: ED 12:09 → 4W 18:05 → SUATTDRO 18:41 → 4W 18:41
DX: I13.0 Hypertensive heart and chronic kidney disease with heart failure and stage 1 through stage 4 chronic kidney disease, or unspecified chronic kidney disease; E66.01 Morbid (severe) obesity due to excess calories; N18.30 Chronic kidney disease, stage 3 unspecified; N13.6 Pyonephrosis; Z79.82 Long term (current) use of aspirin; J44.9 Chronic obstructive pulmonary disease, unspecified; G47.33 Obstructive sleep apnea (adult) (pediatric); R73.03 Prediabetes; E78.00 Pure hypercholesterolemia, unspecified; A41.9 Sepsis, unspecified organism; Z68.41 Body mass index [BMI] 40.0-44.9, adult; N10 Acute pyelonephritis; M35.3 Polymyalgia rheumatica; D50.9 Iron deficiency anemia, unspecified; N31.9 Neuromuscular dysfunction of bladder, unspecified; M10.9 Gout, unspecified; I50.32 Chronic diastolic (congestive) heart failure; R33.9 Retention of urine, unspecified; N40.1 Benign prostatic hyperplasia with lower urinary tract symptoms; F17.220 Nicotine dependence, chewing tobacco, uncomplicated